=== PATIENT | male | born 1930 | race Caucasian/White ===

== ENCOUNTER 2016-04-02 06:02 | Emergency (ER) | payer MEDICARE, OTHER ==
--- NOTE | 2016-04-02 06:46 | ED ---
Upper Extremity Pain - History of Current Complaint Chief Complaint: EDExtremityUpper Stated Complaint: FALL/RIGHT ARM PAIN Hx Obtained From: Patient Mechanism Of Injury: Twisted - was walking down an incline when he started to fall, he quickly grabbed railing with R upper ext and has had pain in arm since. states he did not fall, he "caught himself". Had a hard time sleeping last night d/t pain. Onset/Duration: Started Hours Ago - last aakash Timing: Constant Severity Initially: Moderate Severity Currently: Moderate Pain Location: Elbow, Forearm Character: Sharp, Throbbing Aggravating Factor(s): Movement, Lifting Alleviating Factor(s): Other - position Associated Signs & Symptoms: Positive: Swelling, Bruising - Allergies/Home Medications Allergies/Adverse Reactions: Allergies Allergy/AdvReac Type Severity Reaction Status Date / Time No Known Allergies Allergy Verified 01/28/16 21:22 PMH/Surg Hx/FS Hx/Imm Hx Previously Healthy: Yes Endocrine/Hematology History: Reports: Hx Anticoagulant Therapy Denies: Hx Diabetes, Hx Systemic Lupus Erythematosus, Hx Thyroid Disease Cardiovascular History: Reports: Hx Atrial Fibrillation, Hx Hypercholesterolemia , Hx Hypertension Denies: Hx Congestive Heart Failure Respiratory History: Denies: Hx Asthma, Hx Chronic Obstructive Pulmonary Disease (COPD) GI History: Denies: Hx Ulcer History: Denies: Hx Dialysis, Hx Renal Disease Musculoskeletal History: Denies: Hx Rheumatoid Arthritis Neurological History: Denies: Hx CVA, Hx Migraine Psychiatric History: Denies: Hx Anxiety, Hx Depression - Cancer History Hx Chemotherapy: No - Surgical History Surgery Procedure, Year, and Place: HEART VALVE REPLACEMENT 1994 - Immunization History Date of Tetanus Vaccine: UTD Date of Influenza Vaccine: UTD Infectious Disease History: No Infectious Disease History: Denies: Hx Clostridium Difficile, Hx Hepatitis, Hx Human Immunodeficiency Virus (HIV), Hx of Known/Suspected MRSA, Traveled Outside the [place] in Last 30 Days - Family History Known Family History: Positive: Hypertension - Social History Occupation: Retired Lives: Alone Alcohol Use: None Substance Use Type: Reports: None Smoking Status (MU): Former Smoker Review of Systems Constitutional: Negative Eyes: Negative Cardiovascular: Negative Negative: Chest Pain Respiratory: Negative Negative: Shortness Of Breath Gastrointestinal: Negative Negative: Abdominal Pain Musculoskeletal: Other - RUE pain Positive: Bruising - on R elbow Neurological: Negative Negative: Headache, Weakness Psychological: Normal All Other Systems Reviewed And Are Negative: Yes Physical Exam Triage Information Reviewed: Yes Vital Signs On Initial Exam: Initial Vitals Temp Pulse Resp BP Pulse Ox 98.2 F 106 18 117/67 97 04/02/16 06:11 04/02/16 06:11 04/02/16 06:11 04/02/16 06:11 04/02/16 06:11 Vital Signs Reviewed: Yes Appearance: Positive: Well-Appearing, No Pain Distress, Well-Nourished Skin: Positive: Warm, Skin Color Reflects Adequate Perfusion, Dry - bruising on R wrist and elbow Neck: Positive: Supple Respiratory/Lung Sounds: Positive: Clear to Auscultation Cardiovascular: Positive: Normal Musculoskeletal: Positive: Other - decreased ROM R elbow and wrist, pat cannot define definite location or origin of pain, rubs entire R arm. no shoulder deformity or pain, R elbow swollen, and bruised, no palp pain, R wrist swollen and bruised, min palp pain Neurological: Positive: Normal, Sensory/Motor Intact, Alert, Oriented to Person Place, Time Diagnostics - Vital Signs Vital Signs Temp Pulse Resp BP Pulse Ox 04/02/16 06:11 98.2 F 106 18 117/67 97 - Laboratory Lab Statement: Any lab studies that have been ordered have been reviewed, and results considered in the medical decision making process. Re-Evaluation - Re-Evaluation First Eval Re-Evaluation Time: 08:35 Change: Unchanged Second Eval Re-Evaluation Time: 10:20 Change: Unchanged - remains comfortable in flexed elbow position, no new symps Course/Dx - Diagnoses Differential Diagnosis/HQI/PQRI: Positive: Contusion, Fracture (Closed), Strain , Sprain Provider Diagnoses: Fractured elbow Discharge - Discharge Plan Condition: Stable Disposition: HOME Patient Education Materials: Elbow Fracture in Adults (ED) Referrals: Kaley Cool MD [Primary Care Provider] - Miki Cline MD [Medical Doctor] - Additional Instructions: Wear sling and apply ice to elbow Use over the counter tylenol for pain follow-up with ortho office on Monday Return here if problems worsen
--- NOTE | 2016-04-02 09:27 | RAD ---
Indication: Right wrist injury 3 views of the wrist demonstrates no fracture. Chondrocalcinosis and arterial calcifications are noted. IMPRESSION: NO FRACTURE OF THE WRIST IS NOTED. CHONDROCALCINOSIS IS NOTED.
--- NOTE | 2016-04-02 09:35 | RAD ---
Indication: Right elbow pain and right elbow injury.. 4 views of the right elbow demonstrates likely fracture of the radial head which is slightly depressed. Anterior fat pad sign consistent with joint effusion is noted. IMPRESSION: Joint effusion with likely fracture of the radial head. Images are suboptimally positioned.
[2016-04-02 11:37] VITALS: BP 147/77
== END 2016-04-02 10:50 | disposition home or self-care (01) ==
LOC: ED 06:02
DX: S52.121A Displaced fracture of head of right radius, initial encounter for closed fracture (principal); M79.601 Pain in right arm; Z87.891 Personal history of nicotine dependence; W19.XXXA Unspecified fall, initial encounter; Y93.9 Activity, unspecified; Y92.9 Unspecified place or not applicable
CPT/HCPCS: 99281

== ENCOUNTER 2016-04-10 08:45 | Inpatient (IN) | payer MEDICARE, OTHER ==
[2016-04-10] MEDS ORDERED: Meclizine TAB* 12.5 MG PO ONE (09:16)
[2016-04-10] MEDS ORDERED: NS 0.9% 1000 ML* 1,000 ML IV ONE ×2 (09:16→10:56)
[2016-04-10 09:33] LABS: Hematocrit 46 % (42-52); Hemoglobin 15.3 g/dl (14.0-18.0); Mean Corpuscular HGB Conc 33 g/dl (31-36); Mean Corpuscular Hemoglobin 31 pg (27-31); Mean Corpuscular Volume 94 fL (80-94); Mean Platelet Volume 8 um3 (7.4-10.4); Red Cell Distribution Width 14 % (10.5-15); White Blood Count 7.7 10^3/ul (3.5-10.8)
[2016-04-10 09:45] LABS: Albumin 3.6 g/dL (3.2-5.2); BUN/Creatinine Ratio 16.7 (8-20); Calcium 9.8 mg/dL (8.6-10.3); EGFR African American 89.1 (>60); EGFR Non-African American 69.2 (>60); Globulin 3.5 g/dL (2-4); Magnesium 1.8 mg/dL (1.9-2.7); Potassium 3.8 mmol/L (3.5-5.0); Total Bilirubin 1.1 mg/dL (0.2-1.0); Total Protein 7.1 g/dL (6.4-8.9)
[2016-04-10 09:46] LABS: Troponin I 0.01 ng/mL (<0.04)
--- NOTE | 2016-04-10 09:53 | RAD ---
Indication: Dizziness, on anticoagulation. Assess for bleed. Comparison: March 23, 2014 CT. Technique: Noncontrast CT vertex of skull through foramen magnum. Report: Moderately severe prominence of the cerebral sulci and cerebellar fissures as well as the ventricles reflecting atrophy. Patent basal cisterns. Decreased density in the periventricular and subcortical white matter while non-specific is most likely due to chronic microangiopathy. Negative for duncan matter white matter obscuration, intra or extra-axial hemorrhage, or mass effect. Unremarkable visualized orbital contents. No suspicious lesion of the calvarium or skull base. Partially visualized RIGHT maxillary sinus is completely opacified and there is indolent thickening of the RIGHT maxillary sinus wall consistent with chronic sinusitis. Clear mastoid air spaces. Unremarkable scalp. IMPRESSION: 1. Involutional change and stigmata of chronic small vessel ischemic disease. 2. No acute intracranial process evident.
[2016-04-10 10:00] LABS: TSH (Thyroid Stimulating Horm) 0.81 mcIU/mL (0.34-5.60)
[2016-04-10] MEDS ORDERED: Magnesium Sulfate 2 GM IV* 2 GM/50 ML BAG IVPB ONE (10:57)
[2016-04-10 11:13] LABS: Urine Bilirubin Negative (Negative); Urine Glucose Negative (Negative); Urine Nitrite Negative (Negative)
--- NOTE | 2016-04-10 12:27 | ED ---
Tavo Galvan Matthew, scribed for Scott Owen MD on 04/10/16 at 0911 . Dizziness - HPI Summary HPI Summary: An 85 y/o male presents to the ED with sudden dizziness since 04:00 this morning. He states that he only has dizziness upon standing, which alleviates when he lays down. He's never had these symptoms before and felt well yesterday. Associated symptoms include unsteady gait when ambulating. He denies headache, weakness, speech difficulties, vomiting, diarrhea, sore throat, ear pain, rhinorrhea, head trauma, tinnitus, pedal edema, chest pain, SOB, fever, and chills. The patient is on a blood thinner for a heart valve replacement. The patient has not been ill recently. Last week, the patient fractured is right elbow while catching himself on a rail during a fall. - History Of Current Complaint Chief Complaint: EDDizziness Stated Complaint: DIZZY, Hx Obtained From: Patient Onset/Duration: Still Present Severity Initially: Moderate Severity Currently: Mild Character: Dizzy Aggravating Factor(s): Other - Standing Alleviating Factor(s): Lying Down Associated Signs And Symptoms: Positive: Unsteady Gait. Negative: Vomiting, Diarrhea, Tinnitus, Chest Pain, SOB, Fever, Chills, Slurred Speech - Allergies/Home Medications Allergies/Adverse Reactions: Allergies Allergy/AdvReac Type Severity Reaction Status Date / Time No Known Allergies Allergy Verified 04/10/16 08:50 PMH/Surg Hx/FS Hx/Imm Hx Endocrine/Hematology History: Reports: Hx Anticoagulant Therapy Denies: Hx Diabetes, Hx Systemic Lupus Erythematosus, Hx Thyroid Disease Cardiovascular History: Reports: Hx Atrial Fibrillation, Hx Hypercholesterolemia , Hx Hypertension Denies: Hx Congestive Heart Failure Respiratory History: Denies: Hx Asthma, Hx Chronic Obstructive Pulmonary Disease (COPD) GI History: Denies: Hx Ulcer History: Denies: Hx Dialysis, Hx Renal Disease Musculoskeletal History: Denies: Hx Rheumatoid Arthritis Neurological History: Denies: Hx CVA, Hx Migraine Psychiatric History: Denies: Hx Anxiety, Hx Depression - Cancer History Hx Chemotherapy: No - Surgical History Surgery Procedure, Year, and Place: HEART VALVE REPLACEMENT 1994 - Immunization History Date of Tetanus Vaccine: UTD Date of Influenza Vaccine: UTD Infectious Disease History: No Infectious Disease History: Denies: Hx Clostridium Difficile, Hx Hepatitis, Hx Human Immunodeficiency Virus (HIV), Hx of Known/Suspected MRSA, Traveled Outside the [place] in Last 30 Days - Family History Known Family History: Positive: Hypertension - Social History Alcohol Use: None Substance Use Type: Reports: None Smoking Status (MU): Former Smoker Review of Systems Constitutional: Negative Negative: Fever, Chills Eyes: Negative ENT: Negative Negative: Sore Throat, Ear Ache Cardiovascular: Negative Negative: Chest Pain Respiratory: Negative Negative: Shortness Of Breath Gastrointestinal: Negative Negative: Abdominal Pain, Vomiting, Diarrhea Genitourinary: Negative Musculoskeletal: Negative Negative: Edema - pedal Skin: Negative Neurological: Other - Dizziness Negative: Headache, Weakness, Slurred Speech Psychological: Normal All Other Systems Reviewed And Are Negative: Yes Physical Exam - Summary Physical Exam Summary: The patient is well-nourished in no acute distress and in no acute pain. The skin is warm and dry and skin color reflects adequate perfusion. HEENT: The head is normocephalic and atraumatic. Nystagmus noted. The conjunctivae are clear and without drainage. Nares are patent and without drainage. Mouth reveals moist mucous membranes and the throat is without erythema and exudate. The external ears are intact. The ear canals are patent and without drainage. The tympanic membranes are intact. Neck is supple with full range of motion and non-tender. There are no carotid bruits. There is no neck vein distension. Respiratory: Chest is non-tender. Lungs are clear to auscultation and breath sounds are symmetrical and equal. Cardiovascular: Heart is regular rate and rhythm. There is no murmur or rub auscultated. There is no peripheral edema and pulses are symmetrical and equal. Abdomen: The abdomen is soft and non-tender. There are normal bowel sounds heard in all four quadrants and there is no organomegaly palpated. Musculoskeletal: There is no back pain noted. Extremities are non-tender with full range of motion. There is good capillary refill. There is no peripheral edema or calf tenderness elicited. Neurological: Patient is alert and oriented to person, place and time. The patient has symmetrical motor strength in all four extremities. Cranial nerves II-XII are grossly intact. No facial drooping noted. Deep tendon reflexes are symmetrical and equal in all four extremities. Psychiatric: The patient has an appropriate affect and does not exhibit any anxiety or depression. Triage Information Reviewed: Yes Vital Signs On Initial Exam: Initial Vitals Temp Pulse Resp BP Pulse Ox 98.1 F 80 17 138/60 98 04/10/16 08:46 04/10/16 08:46 04/10/16 08:46 04/10/16 08:46 04/10/16 08:46 Vital Signs Reviewed: Yes Diagnostics - Vital Signs Vital Signs Temp Pulse Resp BP Pulse Ox 04/10/16 08:46 98.1 F 80 17 138/60 98 - Laboratory Lab Results: Lab Results 04/10/16 04/10/16 04/10/16 Range/Units 09:00 09:00 09:00 WBC 7.7 (3.5-10.8) 10^3/ul RBC 4.90 (4.0-5.4) 10^6/ul Hgb 15.3 (14.0-18.0) g/dl Hct 46 (42-52) % MCV 94 (80-94) fL MCH 31 (27-31) pg MCHC 33 (31-36) g/dl RDW 14 (10.5-15) % Plt Count 218 (150-450) 10^3/ul MPV 8 (7.4-10.4) um3 Neut % (Auto) 70.7 (38-83) % Lymph % (Auto) 14.7 L (25-47) % Blair % (Auto) 10.8 H (1-9) % Eos % (Auto) 3.3 (0-6) % Baso % (Auto) 0.5 (0-2) % Absolute Neuts (auto) 5.5 (1.5-7.7) 10^3/ul Absolute Lymphs (auto) 1.1 (1.0-4.8) 10^3/ul Absolute Monos (auto) 0.8 (0-0.8) 10^3/ul Absolute Eos (auto) 0.3 (0-0.6) 10^3/ul Absolute Basos (auto) 0 (0-0.2) 10^3/ul Absolute Nucleated RBC 0.01 10^3/ul Nucleated RBC % 0.1 INR (Anticoag Therapy) 2.47 H (0.89-1.11) APTT 43.2 H (26.0-36.3) seconds Sodium 135 (133-145) mmol/L Potassium 3.8 (3.5-5.0) mmol/L Chloride 103 (101-111) mmol/L Carbon Dioxide 25 (22-32) mmol/L Anion Gap 7 (2-11) mmol/L BUN 17 (6-24) mg/dL Creatinine 1.02 (0.67-1.17) mg/dL Est GFR ( Amer) 89.1 (>60) Est GFR (Non-Af Amer) 69.2 (>60) BUN/Creatinine Ratio 16.7 (8-20) Glucose 84 (70-100) mg/dL Lactic Acid (0.5-2.0) mmol/L Calcium 9.8 (8.6-10.3) mg/dL Magnesium 1.8 L (1.9-2.7) mg/dL Total Bilirubin 1.10 H (0.2-1.0) mg/dL AST 24 (13-39) U/L ALT 19 (7-52) U/L Alkaline Phosphatase 91 (34-104) U/L Troponin I 0.01 (<0.04) ng/mL B-Natriuretic Peptide ( - 100) pg/mL Total Protein 7.1 (6.4-8.9) g/dL Albumin 3.6 (3.2-5.2) g/dL Globulin 3.5 (2-4) g/dL Albumin/Globulin Ratio 1.0 (1-3) TSH 0.81 (0.34-5.60) mcIU/mL Urine Color Urine Appearance Urine pH (5-9) Ur Specific [place] (1.010-1.030) Urine Protein (Negative) Urine Ketones (Negative) Urine Blood (Negative) Urine Nitrate (Negative) Urine Bilirubin (Negative) Urine Urobilinogen (Negative) Ur Leukocyte Esterase (Negative) Urine Glucose (Negative) 04/10/16 04/10/16 04/10/16 Range/Units 09:00 09:00 11:00 WBC (3.5-10.8) 10^3/ul RBC (4.0-5.4) 10^6/ul Hgb (14.0-18.0) g/dl Hct (42-52) % MCV (80-94) fL MCH (27-31) pg MCHC (31-36) g/dl RDW (10.5-15) % Plt Count (150-450) 10^3/ul MPV (7.4-10.4) um3 Neut % (Auto) (38-83) % Lymph % (Auto) (25-47) % Blair % (Auto) (1-9) % Eos % (Auto) (0-6) % Baso % (Auto) (0-2) % Absolute Neuts (auto) (1.5-7.7) 10^3/ul Absolute Lymphs (auto) (1.0-4.8) 10^3/ul Absolute Monos (auto) (0-0.8) 10^3/ul Absolute Eos (auto) (0-0.6) 10^3/ul Absolute Basos (auto) (0-0.2) 10^3/ul Absolute Nucleated RBC 10^3/ul Nucleated RBC % INR (Anticoag Therapy) (0.89-1.11) APTT (26.0-36.3) seconds Sodium (133-145) mmol/L Potassium (3.5-5.0) mmol/L Chloride (101-111) mmol/L Carbon Dioxide (22-32) mmol/L Anion Gap (2-11) mmol/L BUN (6-24) mg/dL Creatinine (0.67-1.17) mg/dL Est GFR ( Amer) (>60) Est GFR (Non-Af Amer) (>60) BUN/Creatinine Ratio (8-20) Glucose (70-100) mg/dL Lactic Acid 1.0 (0.5-2.0) mmol/L Calcium (8.6-10.3) mg/dL Magnesium (1.9-2.7) mg/dL Total Bilirubin (0.2-1.0) mg/dL AST (13-39) U/L ALT (7-52) U/L Alkaline Phosphatase (34-104) U/L Troponin I (<0.04) ng/mL B-Natriuretic Peptide 72 ( - 100) pg/mL Total Protein (6.4-8.9) g/dL Albumin (3.2-5.2) g/dL Globulin (2-4) g/dL Albumin/Globulin Ratio (1-3) TSH (0.34-5.60) mcIU/mL Urine Color Yellow Urine Appearance Clear Urine pH 6.0 (5-9) Ur Specific [place] 1.006 L (1.010-1.030) Urine Protein Negative (Negative) Urine Ketones Trace H (Negative) Urine Blood Negative (Negative) Urine Nitrate Negative (Negative) Urine Bilirubin Negative (Negative) Urine Urobilinogen Negative (Negative) Ur Leukocyte Esterase Negative (Negative) Urine Glucose Negative (Negative) Result Diagrams: 04/10/16 09:00 04/10/16 09:00 Lab Statement: Any lab studies that have been ordered have been reviewed, and results considered in the medical decision making process. - CT Brain CT CT Interpretation: No Acute Changes - IMPRESSION: 1. Involutional change and stigmata of chronic small vessel ischemic disease. 2. No acute intracranial process evident. CT Interpretation Completed By: Radiologist - EKG 08:55 Cardiac Rate: NL - 72 bpm EKG Rhythm: Sinus Rhythm ST Segment: Non-Specific EKG Interpretation: Poor R Wave Progression; No STEMI Re-Evaluation - Re-Evaluation First Eval Re-Evaluation Time: 10:34 Change: Improved Comment: Reviewed labs and imagaing results with the patient and he agrees with the treatment plan. The patient is feeling better and will try to ambulate. Second Eval Re-Evaluation Time: 10:56 Change: Unchanged Comment: The patient states that he is a little less dizziness upon standing; however he is orthostatic and has low magnesium. He will be given more IV fluids and magnesium. Dizzy Course/Dx - Course Assessment/Plan: An 85 y/o male presents to the ED with sudden dizziness since 04:00 this morning. He denies headache, weakness, speech difficulties, vomiting , diarrhea, sore throat, ear pain, rhinorrhea, head trauma, tinnitus, pedal edema, chest pain, SOB, fever, and chills. Labs were reviewed. CT Brain shows involutional change and stigmata of chronic small vessel ischemic disease and no acute intracranial process evident. EKG shows NSR at 72 bpm with non- specific ST changes. The patient continued to become dizzy upon standing and orthostatic. Discussed the case with Dr. High will admit the patient into his services. - Diagnoses Differential Diagnosis/HQI/PQRI: Benign Paroxysmal Positional Vertigo, Coronary Artery Disease, CVA, Hypovolemia, Labyrinthitis, Medication Reaction, Metabolic Abnormality, Transient Ischemic Attack Provider Diagnoses: Vertigo, Dehydration Provider Diagnoses: (Ruled Out): Orthostatic hypotension - Provider Notifications Discussed Care Of Patient with: Dr. High (Hospitalist) at 11:37 -- Notified of patient's history and will admit the patient into his services. Discharge - Discharge Plan Condition: Stable Disposition: ADMITTED TO [facility] Referrals: Kaley Cool MD [Primary Care Provider] - The documentation as recorded by the Tavo ballard Matthew accurately reflects the service I personally performed and the decisions made by , Scott Owen MD.
[2016-04-10] MEDS ORDERED: Acetaminophen TAB* 325 MG PO PRN (15:12)
--- NOTE | 2016-04-10 20:06 | HP ---
HISTORY AND PHYSICAL:* ADDENDUM: DATE OF ADMISSION: 04/10/16 Mr. Derrell Cristobal is an 85-year-old male with a history of Coumadin atrial fibrillation, who fractured his radial head of the right arm after a fall on . Since then, he has been "wobbly." He does not have 24x7 care at home and he lives independently. Today he presents with worsening weakness. He is going to be observed. Physical therapy and occupational therapy is going to evaluate the patient. He may require short-term rehab. For further details of the patient's presentation and plan, please see history and physical dictated by Jenny Arevalo on 04/10/16, with which I agree. [id number]/[facility] #: [id number] MTDD
--- NOTE | 2016-04-10 22:59 | HP ---
ATTENDING PHYSICIAN ADDENDUM NOW INCLUDED ON THIS REPORT HISTORY AND PHYSICAL: DATE OF ADMISSION: 04/10/16 ATTENDING PHYSICIAN: Dr. Jacobsen *(report dictated by Jennie Tavarez NP) PRIMARY CARE PROVIDER: Dr. Cool. CHIEF COMPLAINT: Weakness, falls. HISTORY OF PRESENT ILLNESS: Mr. Cristobal is an 85-year-old male with a past medical history of atrial fibrillation on anticoagulation, history of aortic valve replacement in 1994, hyperlipidemia, hypertension, and recent right elbow fracture, presenting to the emergency department today with complaint of weakness and "wobbly legs." The patient was at home today with his caregiver and the caregiver reported that he would have "fallen down the stairs" if he had not been there and brought him in due to an unsteady gait. The patient reports overall generalized weakness and feels fine other than has wobbly legs. He denies any falls; however, he did fall 10 days ago in which he was walking down an incline and started to fall and grabbed a railing and fractured his elbow. He does report since that time he has been sitting around more than normal due to his right arm being swollen and experiencing some elbow pain. Today in the emergency department, his labs are unremarkable. I did ambulate the patient in the emergency department and he appears to have some difficulty with a steady gait and is deemed a high fall risk. The patient denies any shortness of breath or chest pain. No recent fevers, chills, or upper respiratory illnesses. PAST MEDICAL HISTORY: 1. Atrial fibrillation, on Coumadin. 2. Valve replacement, the patient does not recall which valve. I had seen old records, it reports it was done in 1994 at [facility], which he is on chronic anticoagulation for. 3. Hyperlipidemia. 4. Hypertension. 5. History of esophageal stenosis, requiring dilatation. HOME MEDICATIONS: 1. Coumadin 5 mg p.o. every other day. 2. Coumadin 2.5 mg every other day. 3. Flomax 0.4 mg p.o. daily. 4. Lisinopril 10 mg p.o. daily. 5. Atorvastatin 10 mg p.o. daily. 6. Aspirin EC low dose 81 mg p.o. daily. 7. Multivitamin 1 tab p.o. daily. ALLERGIES: No known allergies. FAMILY HISTORY: His father in the 1939s of unknown causes. His mother and 2 sisters have a history of cancer, possibly breast. SOCIAL HISTORY: The patient denies tobacco abuse, rare alcohol use. 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 He is . He lists his niece as the healthcare proxy, her number is . She lives in [place], [place]. REVIEW OF SYSTEMS: A 14-point review of systems was performed. All the pertinent positives and negatives are mentioned in the history of present illness. All the remaining systems are negative. PHYSICAL EXAMINATION GENERAL: Alert, and oriented x3, 85-year-old male, lying in the emergency department stretcher, in no acute distress. Fair to good historian. VITAL SIGNS: Temperature 98.1, heart rate 74, respirations 14, O2 sat 98% on room air, and blood pressure 139/74. HEENT: Head is normocephalic and atraumatic. Pupils reactive to light. Oropharynx is clear. Good dentition. NECK: Supple. No cervical or supraclavicular lymphadenopathy. LUNGS: Clear to auscultation bilaterally, good aeration throughout. HEART: Cardiac; S1 and S2. Regular rate and rhythm. No murmurs, rubs, or gallops appreciated. No lower extremity edema noted. ABDOMEN: Soft, nontender, and nondistended. Normal bowel sounds x4. EXTREMITIES: Right elbow and distal portion of arm appears to be mildly edematous. Strength is 3/5 on the right and 5/5 on the left. The patient reports tenderness to palpation over the right elbow. Full range of motion in all extremities. Guarding of right elbow. NEUROLOGIC: Cranial nerves II through XII are grossly intact. The patient was ambulated in emergency department and has an unsteady gait and needs one assist. PSYCH: Appropriate to situation, slightly anxious. LABORATORY DATA AND DIAGNOSTIC STUDIES: WBC 7.7, RBC 4.90, HGB 15.3, HCT 46, MCV 94, MCH 31, MCHC 33, RDW 14, platelet count 218. INR 2.47. Sodium 135, potassium 3.8, chloride 103, carbon dioxide 25, anion gap 7, BUN 17, creatinine 1.02, glucose 84, lactic acid 1.0, calcium 9.8, magnesium 1.8. Total bilirubin 1.10, AST 24, ALT 19, alkaline phosphatase 91, troponin 0.01, BNP 72, total protein 7.1, and TSH 0.81. Urinalysis: Specific gravity 1.006, trace ketones high. Otherwise negative. Brain CT. Impression: 1. Involutional changes, stigmata of chronic small vessel ischemic disease. 2. No acute intracranial process evident. EKG: Sinus rhythm with the rate of 72. No acute ischemic changes noted. ASSESSMENT AND PLAN: Mr. Cristobal is an 85-year-old male with a past medical history of atrial fibrillation, valve replacement on chronic Coumadin therapy, hypertension, hyperlipidemia, who presents to the emergency department today with generalized weakness and recent history of fall with a fractured right elbow. 1. Fall/weakness. It appears the patient is unstable to go home and be safe. It is unclear if the patient is overall declining at home in which he had a fall and fractured his elbow approximately 10 days ago or he is just unconditioned from lying around since he has fractured his arm. I think both could be a possibility and believe it is unsafe to discharge the patient home. There is no family close by to take the patient home. Plan: To admit the patient to Medical. PT/OT evaluation. It is possible there are friends that could stay with him for a while. This may be a safe option for him. We will await PT evaluation and reevaluate tomorrow. There appears to be no acute infectious process. 2. Paroxysmal atrial fibrillation. The patient's EKG shows sinus rhythm. It is unclear if the patient is on Coumadin for the valve replacement. However, the patient's INR is therapeutic. He took his Coumadin this morning. Will continue Coumadin therapy in the morning. 3. Hypertension. Continue lisinopril. 4. Hyperlipidemia. Continue atorvastatin. 5. DVT prophylaxis. Therapeutic INR on Coumadin. 6. Code status DNR. MOLST has been filled out and is on the chart. TIME SPENT: Approximately 60 minutes was spent on this admission. JENNIE TAVAREZ NP ADDENDUM: DATE OF ADMISSION: 04/10/16 Mr. Derrell Cristobal is an 85-year-old male with a history of Coumadin atrial fibrillation, who fractured his radial head of the right arm after a fall on . Since then, he has been "wobbly." He does not have 24x7 care at home and he lives independently. Today he presents with worsening weakness. He is going to be observed. Physical therapy and occupational therapy is going to evaluate the patient. He may require short-term rehab. For further details of the patient's presentation and plan, please see history and physical dictated by Jennie Tavarez on 04/10/16, with which I agree. EMILIANA JACOBSEN MD CC: Dr. Cool * [id number]/CPS #: [id number]/CPS #: [id number] MTDD
[2016-04-11 06:10] LABS: Hematocrit 39 % (42-52); Hemoglobin 13.2 g/dl (14.0-18.0); Mean Corpuscular HGB Conc 34 g/dl (31-36); Mean Corpuscular Hemoglobin 31 pg (27-31); Mean Corpuscular Volume 93 fL (80-94); Mean Platelet Volume 8 um3 (7.4-10.4); Red Cell Distribution Width 14 % (10.5-15); White Blood Count 8.6 10^3/ul (3.5-10.8)
[2016-04-11 06:23] LABS: BUN/Creatinine Ratio 16.7 (8-20); Calcium 8.7 mg/dL (8.6-10.3); EGFR African American 102.9 (>60); Magnesium 1.9 mg/dL (1.9-2.7); Potassium 3.8 mmol/L (3.5-5.0)
[2016-04-11 07:51] VITALS: BP 131/65
[2016-04-11] MEDS ORDERED: Lisinopril TAB* 10 MG PO SCH (09:00)
[2016-04-11] MEDS ORDERED: Aspirin EC Low Dose* 81 MG TAB.EC PO SCH (09:00)
[2016-04-11] MEDS ORDERED: Atorvastatin* 10 MG TAB PO SCH (09:00)
[2016-04-11] MEDS ORDERED: Tamsulosin CAP* 0.4 MG PO SCH (09:00)
--- NOTE | 2016-04-11 11:37 | PN ---
Subjective Date of Service: 04/11/16 Interval History: patient reports he is much better today, that he is close to his baseline and wants to go home. he ambulated with PT today requiring a gait belt and recommendation was to continue daily inpatient pt. patient has set up 24 hour home care starting today. his friend/caregiver Chet who frequently helps the patient is at the bedside and confirms this as well as I spoke to the HCP Akua who agrees. The patient was able to ambulate in front of me and does have a wobbly gait but is stable on transfer to bed to chair and independent. It was discussed that he needs 24 hour care and needs a stand-by assist with transfers. , Pt did note blood in urine yesterday x1 and today x1 which has since resolved. He denies ever having blood in urine in the past. Objective Active Medications: Acetaminophen (Tylenol Tab*) 650 mg PO Q6H PRN PRN Reason: FEVER/PAIN Aspirin (Aspirin Ec Low Dose*) 81 mg PO DAILY [facility] Last Admin: 04/11/16 08:35 Dose: 81 mg Atorvastatin Calcium (Lipitor*) 10 mg PO DAILY [facility] Last Admin: 04/11/16 08:35 Dose: 10 mg Lisinopril (Prinivil Tab*) 10 mg PO DAILY [facility] Last Admin: 04/11/16 08:35 Dose: 10 mg Tamsulosin HCl (Flomax Cap*) 0.4 mg PO DAILY [facility] Last Admin: 04/11/16 08:35 Dose: 0.4 mg Warfarin Sodium (Coumadin Tab(*)) 2.5 mg PO EVERY OTHER DAY@1700 [facility] PRN Reason: Protocol Warfarin Sodium (Coumadin Tab(*)) 5 mg PO EVERY OTHER DAY@1700 [facility] PRN Reason: Protocol Vital Signs 04/10/16 04/10/16 04/10/16 13:27 13:30 15:40 Temperature 97.3 F Pulse Rate 70 Respiratory 37 18 Rate Blood Pressure 140/74 144/70 (mmHg) O2 Sat by Pulse 97 Oximetry 04/10/16 04/10/16 04/10/16 15:52 16:21 20:00 Temperature 97.3 F Pulse Rate 74 Respiratory 18 18 16 Rate Blood Pressure 144/70 (mmHg) O2 Sat by Pulse 97 Oximetry 04/10/16 04/10/16 04/11/16 22:02 23:32 00:33 Temperature 97.5 F 97.4 F Pulse Rate 81 74 74 Respiratory 16 16 Rate Blood Pressure 134/69 124/53 (mmHg) O2 Sat by Pulse 95 94 93 Oximetry 04/11/16 04/11/16 04:45 07:50 Temperature 97.9 F 97.4 F Pulse Rate 76 67 Respiratory 16 16 Rate Blood Pressure 127/69 131/65 (mmHg) O2 Sat by Pulse 97 94 Oximetry Oxygen Devices in Use Now: None Appearance: eldelry male sitting up in a chair in NAD. A+O x3 Eyes: No Scleral Icterus, PERRLA Ears/Nose/Mouth/Throat: NL Teeth, Lips, Gums, Mucous Membranes Moist Neck: NL Appearance and Movements; NL JVP Respiratory: Symmetrical Chest Expansion and Respiratory Effort, Clear to Auscultation Cardiovascular: NL Sounds; No Murmurs; No JVD, RRR, No Edema Abdominal: NL Sounds; No Tenderness; No Distention Extremities: No Edema, No Clubbing, Cyanosis, - - bilateral 2+ radial pulses; upper ext warm Skin: No Rash or Ulcers, No Nodules or Sclerosis Neurological: Alert and Oriented x 3, NL Sensation, NL Muscle Strength and Tone Lines/Tubes/Other Access: Clean, Dry and Intact Peripheral IV Nutrition: Taking PO's Result Diagrams: 04/11/16 12:25 04/11/16 05:43 Additional Lab and Data: Lab Results 04/10/16 04/10/16 04/10/16 Range/Units 09:00 09:00 09:00 WBC 7.7 (3.5-10.8) 10^3/ul RBC 4.90 (4.0-5.4) 10^6/ul Hgb 15.3 (14.0-18.0) g/dl Hct 46 (42-52) % MCV 94 (80-94) fL MCH 31 (27-31) pg MCHC 33 (31-36) g/dl RDW 14 (10.5-15) % Plt Count 218 (150-450) 10^3/ul MPV 8 (7.4-10.4) um3 Neut % (Auto) 70.7 (38-83) % Lymph % (Auto) 14.7 L (25-47) % [place] % (Auto) 10.8 H (1-9) % Eos % (Auto) 3.3 (0-6) % Baso % (Auto) 0.5 (0-2) % Absolute Neuts (auto) 5.5 (1.5-7.7) 10^3/ul Absolute Lymphs (auto) 1.1 (1.0-4.8) 10^3/ul Absolute Monos (auto) 0.8 (0-0.8) 10^3/ul Absolute Eos (auto) 0.3 (0-0.6) 10^3/ul Absolute Basos (auto) 0 (0-0.2) 10^3/ul Absolute Nucleated RBC 0.01 10^3/ul Nucleated RBC % 0.1 INR (Anticoag Therapy) 2.47 H (0.89-1.11) APTT 43.2 H (26.0-36.3) seconds Sodium 135 (133-145) mmol/L Potassium 3.8 (3.5-5.0) mmol/L Chloride 103 (101-111) mmol/L Carbon Dioxide 25 (22-32) mmol/L Anion Gap 7 (2-11) mmol/L BUN 17 (6-24) mg/dL Creatinine 1.02 (0.67-1.17) mg/dL Est GFR ( Amer) 89.1 (>60) Est GFR (Non-Af Amer) 69.2 (>60) BUN/Creatinine Ratio 16.7 (8-20) Glucose 84 (70-100) mg/dL Lactic Acid (0.5-2.0) mmol/L Calcium 9.8 (8.6-10.3) mg/dL Magnesium 1.8 L (1.9-2.7) mg/dL Total Bilirubin 1.10 H (0.2-1.0) mg/dL AST 24 (13-39) U/L ALT 19 (7-52) U/L Alkaline Phosphatase 91 (34-104) U/L Troponin I 0.01 (<0.04) ng/mL B-Natriuretic Peptide ( - 100) pg/mL Total Protein 7.1 (6.4-8.9) g/dL Albumin 3.6 (3.2-5.2) g/dL Globulin 3.5 (2-4) g/dL Albumin/Globulin Ratio 1.0 (1-3) TSH 0.81 (0.34-5.60) mcIU/mL Urine Color Urine Appearance Urine pH (5-9) Ur Specific Buhl (1.010-1.030) Urine Protein (Negative) Urine Ketones (Negative) Urine Blood (Negative) Urine Nitrate (Negative) Urine Bilirubin (Negative) Urine Urobilinogen (Negative) Ur Leukocyte Esterase (Negative) Urine Glucose (Negative) 04/10/16 04/10/16 04/10/16 Range/Units 09:00 09:00 11:00 WBC (3.5-10.8) 10^3/ul RBC (4.0-5.4) 10^6/ul Hgb (14.0-18.0) g/dl Hct (42-52) % MCV (80-94) fL MCH (27-31) pg MCHC (31-36) g/dl RDW (10.5-15) % Plt Count (150-450) 10^3/ul MPV (7.4-10.4) um3 Neut % (Auto) (38-83) % Lymph % (Auto) (25-47) % [place] % (Auto) (1-9) % Eos % (Auto) (0-6) % Baso % (Auto) (0-2) % Absolute Neuts (auto) (1.5-7.7) 10^3/ul Absolute Lymphs (auto) (1.0-4.8) 10^3/ul Absolute Monos (auto) (0-0.8) 10^3/ul Absolute Eos (auto) (0-0.6) 10^3/ul Absolute Basos (auto) (0-0.2) 10^3/ul Absolute Nucleated RBC 10^3/ul Nucleated RBC % INR (Anticoag Therapy) (0.89-1.11) APTT (26.0-36.3) seconds Sodium (133-145) mmol/L Potassium (3.5-5.0) mmol/L Chloride (101-111) mmol/L Carbon Dioxide (22-32) mmol/L Anion Gap (2-11) mmol/L BUN (6-24) mg/dL Creatinine (0.67-1.17) mg/dL Est GFR ( Amer) (>60) Est GFR (Non-Af Amer) (>60) BUN/Creatinine Ratio (8-20) Glucose (70-100) mg/dL Lactic Acid 1.0 (0.5-2.0) mmol/L Calcium (8.6-10.3) mg/dL Magnesium (1.9-2.7) mg/dL Total Bilirubin (0.2-1.0) mg/dL AST (13-39) U/L ALT (7-52) U/L Alkaline Phosphatase (34-104) U/L Troponin I (<0.04) ng/mL B-Natriuretic Peptide 72 ( - 100) pg/mL Total Protein (6.4-8.9) g/dL Albumin (3.2-5.2) g/dL Globulin (2-4) g/dL Albumin/Globulin Ratio (1-3) TSH (0.34-5.60) mcIU/mL Urine Color Yellow Urine Appearance Clear Urine pH 6.0 (5-9) Ur Specific B[place] 1.006 L (1.010-1.030) Urine Protein Negative (Negative) Urine Ketones Trace H (Negative) Urine Blood Negative (Negative) Urine Nitrate Negative (Negative) Urine Bilirubin Negative (Negative) Urine Urobilinogen Negative (Negative) Ur Leukocyte Esterase Negative (Negative) Urine Glucose Negative (Negative) Assess/Plan/Problems-Billing Assessment: 85 yo male with a PMH of afib on Coumadin, valve replacement, HTN and recent right elbow fx who presented 2/5 with c/o of weakness/falls. - Patient Problems (1) weakness/falls Comment: - suspect secondary to deconditioning secondary to decreased activity due to fx right elbow - improved since admission, will require 24 hour care, which has been set up, VNS with home PT. (2) Hematuria Comment: - x2 now resolved. will f/u with Dr. Cool. If it continues recommend urology consult. - HH stable (3) Elbow fracture, right Comment: Fractured 2 - he followed up with ortho as an outpt and reports he is to have a sling only. He has a f/u with Ortho this week. (4) Mechanical heart valve present Comment: - INR therapuetic (5) DVT prophylaxis Comment: coumadin (6) DNR (do not resuscitate) Status and Disposition: Plan for DC today with home 24 hour care, VNS with PT services.
[2016-04-11 12:36] LABS: Hematocrit 40 % (42-52); Hemoglobin 13.5 g/dl (14.0-18.0)
[2016-04-11] MEDS ORDERED: Warfarin TAB(*) 2.5 MG PO SCH (17:00)
--- NOTE | 2016-04-12 03:05 | DS ---
DISCHARGE SUMMARY: DATE OF ADMISSION: 04/10/16 DATE OF DISCHARGE: 04/11/16 PROVIDER: Jennie Tavarez NP ATTENDING PHYSICIAN: Dr. Gong *(report dictated by Jennie Tavarez NP). PRIMARY CARE PROVIDER: Dr. Cool. PRIMARY DIAGNOSES: 1. Weakness, falls. 2. Hematuria. 3. Status post fracture, right elbow. SECONDARY DIAGNOSES: 1. Mechanical valve, on Coumadin. 2. Hyperlipidemia. 3. Hypertension. 4. History of esophageal stenosis requiring dilatation. HOME MEDICATIONS: 1. Coumadin 5 mg p.o. every other day. 2. Coumadin 2.5 mg p.o. every other day. 3. Flomax 0.4 mg p.o. daily. 4. Lisinopril 10 mg p.o. daily. 5. Atorvastatin 10 mg p.o. daily. 6. Aspirin EC low dose 81 mg p.o. daily. 7. Multivitamin 1 tab p.o. daily. HISTORY OF PRESENT ILLNESS AND HOSPITAL COURSE: Please see history and physical by this author for full admission details, but in summary, this is an 85-year-old male who presented to the emergency department on 04/10/16 with one of his caregivers with report of "wobbly legs" and some noted weakness stating he felt like he was going to fall at home. The patient did have a fall on 04/06; in which, he fractured his right elbow. He reports at that time, he was walking down an incline, lost his footing, grabbed a railing, and ended up fracturing his elbow. The patient since has been sitting around his house, not as active as normal and reports today when he got up, he felt very wobbly in his lower extremities like he was going to fall with some generalized weakness. He denies any fevers, chills, upper respiratory illness. No nausea, vomiting , diarrhea. No shortness of breath or chest pain. He reports other than his wobbly legs, he feels like his normal state of health. Mr. Cristobal continues to live at home independently with some caregivers who check in on him. 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 He reports he has lot of friends "close by." The patient was admitted to the hospitalist service. His labs were fairly unremarkable. He was seen by Physical Therapy, who reported the patient to get out of his bed independently, transfers, sit to stand independently with some standby supervision. It is noted that the patient moves very fast on transferring and has decreased safety awareness. The patient was able to ambulate 40 feet and is noted to be off balance and has increased sway during ambulation and is noted to wobble with his gait. Recommendation was for acute care, physical therapy to increase mobility and safety. I discussed this with the patient as well as the caregiver as well as his healthcare proxy. The patient has set up 24-hour home care with live-in friends, who have agreed to provide him with 24-hour care. As well, he has been set up with visiting nurse service and Physical Therapy. I evaluated the patient and ambulated him myself , he was able to get himself out of bed to the chair and ambulate in the room. He does appear wobbly, but he is stable and is safe to be discharged home with 24-hour care. Again, this was discussed with the healthcare proxy who was in [place] as well as his friend/caregiver, Chet, who will be taking the patient home. They have all confirmed the patient does have 24-hour care starting today. The patient was instructed that he needs to have somebody at his side at all times while going through physical therapy at home. Again, the patient was offered that he could go to subacute rehab, but the patient has strongly declined. The patient understands his fall risks being on Coumadin. The patient did have noted hematuria yesterday x1 and today x1, which has since resolved. The patient is on Coumadin. I saw his last urine, which was clear, light yellow. His hemoglobin on admission was 15.3, down to 13.2 today. I rechecked it this afternoon and is stable at 13.5. He did receive some IV fluids on admission, most likely his drop is secondary to dilutional. His urinalysis on admission had no blood noted. Per the patient, he has never had blood in his urine before in the past. He has no pain with urinating. I did speak to his primary care provider over the phone, Dr. Cool, and updated her on the situation. She will follow up with the patient this week. If he continues to have hematuria, she will refer him to Urology. DISCHARGE PLAN: 1. Stable for discharge home. 2. Follow up with Dr. Cool. Her office will call him for a followup this week. 3. Follow up with orthopedic surgeon as previously scheduled. 4. It was discussed with the patient if he has significant hematuria, he needs to return to the emergency department. 5. VNS with physical therapy services has been set up. 6. The patient is to have personal home and 24-hour care starting today. TIME SPENT: Approximately 60 minutes was spent on this discharge. JENNIE TAVAREZ, HANNA [id number]/CPS #: [id number] JACKIE
[2016-04-12] MEDS ORDERED: Warfarin TAB(*) 5 MG PO SCH (17:00)
== END 2016-04-11 15:50 | disposition home or self-care (01) | DRG 948 ==
LOC: ED 08:45 → MED 13:03 → OBSVTOIN 04-11 10:00
PROVIDERS: ADMIT Internal Medicine; ATTEND Internal Medicine
DX: R53.1 Weakness (principal); R31.9 Hematuria, unspecified; I48.91 Unspecified atrial fibrillation; S42.401D Unspecified fracture of lower end of right humerus, subsequent encounter for fracture with routine healing; E78.5 Hyperlipidemia, unspecified; I10 Essential (primary) hypertension; Z79.01 Long term (current) use of anticoagulants; W18.30XD Fall on same level, unspecified, subsequent encounter; Z95.2 Presence of prosthetic heart valve; Z79.82 Long term (current) use of aspirin; Z91.81 History of falling; Z79.899 Other long term (current) drug therapy
CPT/HCPCS: 36415; 70450; 80048; 80053; 81003; 83605; 83735; 83880; 84443; 84484; 85014; 85018; 85025; 85610; 85730; 93005; A9270-GY; G0378; G8978-GP-CJ; G8979-GP-CI; G8980-GP-CJ; J3475

== ENCOUNTER 2018-03-12 10:41 | Observation (INO) | payer MEDICARE, OTHER ==
--- NOTE | 2018-03-12 10:57 | ED ---
Altered Mental Status - HPI Summary HPI Summary: An 87 y/o male brought in by [facility] ambulance presents to [facility] with a chief complaint of, per EMS, "acting nonsensical and combative". His plant maintenance manager found him in this state. Per EMS, his coffee was cold and he has no last known well time. En route he was given 5 mg Versed. 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 He denies any Fever, Chills, Erythema (eyes), Sore throat, Chest pain, Shortness of Breath, Cough, Abdominal pain, Vomiting, Nausea, Dysuria, Hematuria, Myalgia, Edema, Rash and Dizziness. - History Of Current Complaint Stated Complaint: POSS STROKE Hx Obtained From: Patient, EMS, Other: - maintentance man Onset/Duration: Unknown Timing: Constant, Lasting Hours Severity Initially: Mild Severity Currently: Mild Character: Agitation Aggravating Factor(s): Nothing Alleviating Factor(s): Nothing Associated Signs And Symptoms: Negative: Nausea, Vomiting, Fever - Allergies/Home Medications Allergies/Adverse Reactions: Allergies Allergy/AdvReac Type Severity Reaction Status Date / Time No Known Allergies Allergy Verified 04/10/16 08:50 Home Medications: Home Medications Albuterol HFA INHALER* [Ventolin HFA Inhaler*] 2 puff INH Q6H PRN 03/12/18 [ History Confirmed 03/12/18] Aspirin EC TAB* [Ecotrin EC Low Dose 81 MG*] 81 mg PO DAILY 03/12/18 [History Confirmed 03/12/18] Atorvastatin* [Lipitor*] 10 mg PO DAILY 03/12/18 [History Confirmed 03/12/18] Fluticasone NASAL SPRAY 50MCG* [Flonase NASAL SPRAY 50MCG*] 2 spray BOTH NARES DAILY 03/12/18 [History Confirmed 03/12/18] Multivitamins/Minerals TAB* [Theragran/minerals TAB*] 1 tab PO DAILY 03/12/18 [ History Confirmed 03/12/18] guaiFENesin ER TAB [Mucinex*] 600 mg PO BID PRN 03/12/18 [History Confirmed 09/21] PMH/Surg Hx/FS Hx/Imm Hx Endocrine/Hematology History: Reports: Hx Anticoagulant Therapy - for mechanical heart valve Denies: Hx Diabetes, Hx Systemic Lupus Erythematosus, Hx Thyroid Disease Cardiovascular History: Reports: Hx Atrial Fibrillation, Hx Hypercholesterolemia , Hx Hypertension, Other Cardiovascular Problems/Disorders - mechanical valve replacement Denies: Hx Congestive Heart Failure Respiratory History: Denies: Hx Asthma, Hx Chronic Obstructive Pulmonary Disease (COPD) GI History: Reports: Hx Gastroesophageal Reflux Disease Denies: Hx Ulcer History: Denies: Hx Dialysis, Hx Renal Disease Musculoskeletal History: Reports: Other Musculoskeletal History - right elbow fracture Denies: Hx Rheumatoid Arthritis Sensory History: Reports: Hx Contacts or Glasses, Hx Hearing Problem Opthamlomology History: Reports: Hx Contacts or Glasses Neurological History: Denies: Hx CVA, Hx Migraine Psychiatric History: Denies: Hx Anxiety, Hx Depression - Cancer History Hx Chemotherapy: No - Surgical History Surgery Procedure, Year, and Place: HEART VALVE REPLACEMENT 1994 - Immunization History Date of Tetanus Vaccine: UTD Date of Influenza Vaccine: UTD Infectious Disease History: No Infectious Disease History: Denies: Hx Clostridium Difficile, Hx Hepatitis, Hx Human Immunodeficiency Virus (HIV), Hx of Known/Suspected MRSA, Traveled Outside the in Last 30 Days - Family History Known Family History: Positive: Hypertension - Social History Lives: Alone Alcohol Use: Occasionally Substance Use Type: Reports: None Smoking Status (MU): Never Smoked Tobacco Review of Systems Negative: Fever, Chills Negative: Erythema Negative: Sore Throat Negative: Chest Pain Negative: Shortness Of Breath, Cough Negative: Abdominal Pain, Vomiting, Nausea Negative: dysuria, hematuria Negative: Myalgia, Edema Negative: Rash Neurological: Negative - dizziness, Other - positive: "acting nonsensical and combative" All Other Systems Reviewed And Are Negative: Yes Physical Exam - Summary Physical Exam Summary: Constitutional: Well-developed, Well-nourished, Alert. (-) Distressed Skin: Warm, Dry HENT: Normocephalic; Atraumatic Eyes: Conjunctiva normal, pinpoint pupils bilaterally. Neck: Musculoskeletal ROM normal neck. (-) JVD, (-) Stridor, (-) Tracheal deviation Cardio: Rhythm regular, rate normal, Heart sounds normal; Intact distal pulses; The pedal pulses are 2+ and symmetric. Radial pulses are 2+ and symmetric. (-) Murmur Pulmonary/Chest wall: Effort normal. (-) Respiratory distress, (-) Wheezes, (-) Rales Abd: Soft. (-) Tenderness, (-) Distension, (-) Guarding, (-) Rebound Musculoskeletal: Ecchymosis both hands, nontender, no deformity, (-) Edema Lymph: (-) Cervical adenopathy Neuro: Slurred verbal responses including expletives and snoring responses.Alert , Oriented x3, Strength normal, Cranial nerves II-XII are grossly intact. (-) Dysmetria, (-) Nystagmus, (-) Ataxia by finger to nose testing, (-) Sensory deficit. Psych: Mood and affect Normal GCS: 14 Triage Information Reviewed: Yes Vital Signs On Initial Exam: Initial Vitals Temp Pulse Resp BP Pulse Ox 96.9 F 63 15 134/77 95 03/12/18 10:44 03/12/18 10:44 03/12/18 10:44 03/12/18 10:44 03/12/18 10:44 Vital Signs Reviewed: Yes Diagnostics - Vital Signs Vital Signs Temp Pulse Resp BP Pulse Ox 03/12/18 10:44 96.9 F 63 15 134/77 95 - Laboratory Result Diagrams: 03/12/18 11:36 03/12/18 11:36 Lab Statement: Any lab studies that have been ordered have been reviewed, and results considered in the medical decision making process. - CT Brain CT Interpretation Completed By: Radiologist Summary of CT Findings: No acute intracranial process evident. Involutional change and stigmata of chronic small vessel ischemic disease. Chronic RIGHT maxillary sinusitis. ED provider has reviewed this imaging report. - EKG 10:54 Cardiac Rate: Other Rate - Sinus arrythmia at 69 bpm Summary of EKG Findings: EKG at 10:54 shows sinus arrhythmia at 69 bpm. No STEMI. Re-Evaluation - Re-Evaluation First Eval Re-Evaluation Time: 11:30 Change: Unchanged Comment: Per plant maintenance manager, the patient was found talking to a wall and agressive. The plant maintenance manager saw the patient playing with an imaginary mouse. He claims the patient is usually very sharp. He saw the patient's breakfast which was not eaten. He thinks that the cleaning lady most likely made his breakfast. He reports that usually the patient is alert and oriented. Second Eval Re-Evaluation Time: 12:05 Change: Unchanged Comment: Patient is awake and oriented, talking and unable to give a meaningful history. He denies pain or falls. He remembers EMS coming. Speech is still slurring. Altered Mental Statu Course/Dx - Course Course Of Treatment: An 87 y/o male brought in by [facility] ambulance presents to [facility] with a chief complaint of, per EMS, "acting nonsensical and combative". Per plant maintenance manager, the patient was found talking to a wall and agressive. The plant maintenance manager saw the patient playing with an imaginary mouse. He claims the patient is usually very sharp. He saw the patient's breakfast which was not eaten. He thinks that the cleaning lady most likely made his breakfast. He reports that usually the patient is alert and oriented. Brain CT impression: No acute intracranial process evident. Involutional change and stigmata of chronic small vessel ischemic disease. Chronic RIGHT maxillary sinusitis. EKG at 10:54 showed sinus arrythmia at 69 bpm. Lab results obtained. WBC high at 11.0. Upon re-eval the patient is awake and oriented, talking and unable to give a meaningful history. He denies pain or falls. He remembers EMS coming. His speech is still slurring. Discussed case with Dr. Dodd, Hospitalist, who accepted the patient for admission. - Diagnoses Differential Diagnosis/HQI/PQRI: CVA, Other - Delerium, dementia, electrolyte abnormality Provider Diagnoses: Altered mental status - Provider Notifications Discussed Care Of Patient With: Iain Dodd Time Discussed With Above Provider: 12:25 Instructed by Provider To: Admit As Inpatient Discharge - Sign-Out/Discharge Documenting (check all that apply): Patient Departure - admit - Discharge Plan Condition: Fair Disposition: ADMITTED TO [facility] Referrals: Kaley Cool MD [Primary Care Provider] - - Billing Disposition and Condition Condition: FAIR Disposition: Admitted to [facility] - Attestation Statements Document Initiated by Scribe: Yes Documenting Scribe: Bharathi Dodd Provider For Whom Scribe is Documenting (Include Credential): Fazal Friend MD Scribe Attestation: Bharathi Galvan, scribed for Fazal Friend MD on 03/12/18 at 1244. Scribe Documentation Reviewed: Yes Provider Attestation: The documentation as recorded by the Bharathi ballard accurately reflects the service I personally performed and the decisions made by Fazal xiao MD Status of Scribe Document: Viewed
[2018-03-12 11:43] LABS: ABS Basophils 0.1 10^3/ul (0-0.2); ABS Eosinophils 0 10^3/ul (0-0.6); ABS Lymphocytes 0.6 10^3/ul (1.0-4.8); ABS Monocytes 0.9 10^3/ul (0-0.8); ABS Neutrophils 9.4 10^3/ul (1.5-7.7); ABS Nucleated RBC 0 10^3/ul; Eosinophil % 0.3 %; Hematocrit 45 % (42-52); Hemoglobin 15.1 g/dl (14.0-18.0); Lymphocyte % 5.6 %; Mean Corpuscular HGB Conc 34 g/dl (31-36); Mean Corpuscular Hemoglobin 32 pg (27-31); Mean Corpuscular Volume 95 fL (80-94); Mean Platelet Volume 7.4 fL (7.4-10.4); Nucleated Red Blood Cells % 0; Platelet Count 205 10^3/ul (150-450); Red Cell Distribution Width 14 % (10.5-15)
[2018-03-12 11:58] LABS: Activated Partial Thrombo Time 35.4 seconds (26.0-36.3); INR 2.54 (0.77-1.02)
[2018-03-12 12:01] LABS: ALT 19 U/L (7-52); AST 27 U/L (13-39); Albumin 3.6 g/dL (3.2-5.2); Albumin/Globulin Ratio 1.1 (1-3); Alkaline Phosphatase 89 U/L (34-104); Anion Gap 7 mmol/L (2-11); BUN/Creatinine Ratio 20.8 (8-20); Blood Urea Nitrogen 20 mg/dL (6-24); CO2 Carbon Dioxide 24 mmol/L (22-32); Calcium 9.1 mg/dL (8.6-10.3); Chloride 107 mmol/L (101-111); EGFR Non-African American 73.9 (>60); Globulin 3.2 g/dL (2-4); Glucose 110 mg/dL (70-100); Potassium 4.1 mmol/L (3.5-5.0); Sodium 138 mmol/L (135-145); Total Protein 6.8 g/dL (6.4-8.9)
[2018-03-12 12:14] LABS: Alcohol < 10 mg/dL (<10)
[2018-03-12 12:16] LABS: Urine Appearance Cloudy; Urine Bacteria Absent (Absent); Urine Bilirubin Negative (Negative); Urine Blood 2+ (Negative); Urine Color Yellow; Urine Glucose Negative (Negative); Urine Ketones Trace (Negative); Urine Nitrite Negative (Negative); Urine Protein 1+(30 mg/dL) (Negative); Urine Red Blood Cell 2+(6-10/hpf) (Absent); Urine Specific Gravity 1.023 (1.010-1.030); Urine Urobilinogen Negative (Negative); Urine White Blood Cell Trace(0-5/hpf) (Absent)
[2018-03-12 12:41] LABS: Barbiturates Urine Screen None Detected (None Detect); Benzodiazepine Urine Screen Presumptive Positive (None Detect); Urine Cannabinoids Screen None Detected (None Detect)
[2018-03-12] MEDS ORDERED: Al Hydrox/Mg Hydrox/Simet LIQ* 30 ML UDC PO PRN (14:43)
[2018-03-12] MEDS ORDERED: Acetaminophen TAB* 325 MG PO PRN (14:43)
[2018-03-12] MEDS ORDERED: Albuterol 2.5 MG/3 ML NEB.SOL* (0.083%) INH PRN (14:43)
[2018-03-12] MEDS ORDERED: Albuterol HFA INHALER* 8 gm MDI INH PRN (15:12)
[2018-03-12 15:50] LABS: TSH (Thyroid Stimulating Horm) 0.07 mcIU/mL (0.34-5.60)
[2018-03-12] MEDS ORDERED: LORazepam INJ* 2 MG/ML 1 ML VIAL IV PUSH ONE (16:25)
[2018-03-12] MEDS ORDERED: Warfarin TAB(*) 5 MG PO SCH (17:00)
[2018-03-12 17:20] LABS: Free T4 1.16 ng/dL (0.61-1.12)
--- NOTE | 2018-03-12 20:27 | CONS ---
NEUROLOGY CONSULTATION NOTE: DATE OF CONSULT: 03/12/18 SOCIAL MEDIA JOB TITLES PROVIDER: Elidia Eugene NP REASON FOR CONSULT: Confusion and combative state. CHIEF COMPLAINT: "Do not touch me." HISTORY OF PRESENT ILLNESS: Mr. 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 The patient lives alone. I called the patient's niece who is listed as the person of contact, but there was absolutely no response despite having 2 phone numbers. The patient apparently appears to have no family contact except for his facilities maintenance assistant checks up on him 2 to 3 times a week. Apparently, according to the providers, the patient was last known well 2 days ago on 03/10/18. This morning, the patient was found on his computer not clicking or responding appropriately. There was a report that EMS found his coffee to be cold, hence the last known well exactly is unclear. The patient required 5 mg of Versed due to constant agitation, irritability, combativeness that improved with Versed. However, after a few hours, the patient 's symptoms returned. It was difficult to examine the patient as he was irritable and yelling out not to touch him. He is incoherent. He is perseverating on "press 1 button only." There were some reports that he may have had a right facial droop and right-sided weakness, but I was unable to appreciate that on my examination. An NIH Stroke Scale done today showed a score of 5 for 1 arouses to minor stimulation; 1 answers 1 question correctly; performs 1 task correctly; he has got a slight drift on the right lower extremity, and he has possible mild aphasia. The patient had a CT head without contrast that was personally reviewed and compared to a previous study. There is no acute intracranial abnormality. There is diffuse moderate cerebral atrophy. The patient also had laboratory data completed. WBC of 11, hemoglobin of 15, hematocrit of 45, platelet count of 205. INR 2.54. Sodium 138, potassium 4.1, chloride 107, carbon dioxide 24, creatinine 0.96, glucose of 110. TSH of 0.07. Urinalysis: No evidence of pyuria, but there is positive rbc. Toxicology screen is negative for any drugs except positive for benzodiazepine, which he received Versed en route. PAST MEDICAL HISTORY: As mentioned in the HPI. There is no history of dementia. He does have a history of esophageal stenosis. PAST SURGICAL HISTORY: EGD done in the past in 2015 for what the patient suspected a foreign object stuck in his throat. The patient refused to leave the ER without having an EGD done despite the providers reassuring him that he was able to drink water without any complication. CURRENT MEDICATIONS: 1. Warfarin 2.5 mg p.o. Monday, Monday, . 2. Warfarin 5 mg p.o. Monday, Monday, Monday, Monday. 3. Tamsulosin 0.4 mg p.o. daily. 4. Lisinopril 5 mg p.o. daily. 5. Guaifenesin 600 mg p.o. twice daily as needed. 6. Fluticasone 2 sprays both nares daily. 7. Multivitamins 1 tab p.o. daily. 8. Atorvastatin 10 mg p.o. daily. 9. Aspirin 81 mg p.o. daily. 10. Albuterol 2 puffs inhaled every 6 hours p.r.n. ALLERGIES: No known drug allergies. FAMILY HISTORY: His father in 1940 of unknown cause. His mother and 2 sisters have a history of cancer. SOCIAL HISTORY: The patient denies tobacco or alcohol use. The patient is retired from [employer]. He is . His healthcare proxy from a previous note is his niece who lives in [place], [place]. REVIEW OF SYSTEMS: The patient was unable to cooperate with review of systems. PHYSICAL EXAM: Well-nourished, well-developed, elderly man, in mild distress due to agitation. Head: Atraumatic, normocephalic without any obvious abnormality. Eyes: Conjunctivae/corneas are clear. Neck is supple and symmetrical with no carotid bruits. Lungs are clear to auscultation bilaterally. Cardiovascular: Regular rate and rhythm with normal S1, S2. Extremities: Normal range of motion with no cyanosis. He does have shiny lower extremities and possible foot deformities with hammertoes. Skin: No skin lesions or lacerations. Psych: Angry and irritable mood. He is difficult to establish rapport. Neurological Examination: The patient is awake , alert to self, but not place or time or general circumstances. He seems to have perseverated speech and is fixed on only pressing a button and raising the hands. He could be manifesting as mild receptive aphasia. Cranial Nerves: Normal confrontation testing bilaterally. Pupils are mid range and reactive to light. Sensation is intact on the forehead, cheeks, and jaw region bilaterally when the patient does participate with the exam. No facial droop. He is able to hear throughout the history process. Symmetrical palatal elevation. Normal strength against shoulder shrug resistance. Tongue is symmetrical and midline. Motor Examination: The patient would not participate or allow examiner near him, but he is able to move all 4 extremities. There is some external rotation of the right leg. Reflexes 1+ throughout the upper extremities, 0 in the lower extremities with flexor plantar responses bilaterally. Sensation is intact to light touch throughout. Coordination and Gait: The patient would not participate. ASSESSMENT: Mr. 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 His TSH is quite low, so encephalopathy related to autoimmune thyroid disease is in the differential. It is not clear but he also can be manifesting as someone with mild receptive aphasia, also known as Wernicke aphasia. Thus a vascular phenomenon to the left MCA vascular territory will need to be further evaluated. He has no reported history of alcohol use when reviewing the records, thus Wernicke encephalopathy is unlikely. He does have evidence of diffuse cortical atrophy, but no history of memory problems. However, the patient lives alone and may have had dementia for some time and now is delirious related to underlying dementia. Again, the etiology is unclear. We will need further testing. RECOMMENDATIONS: Please order an MRI brain without contrast. Please obtain a bedside routine EEG to evaluate for any epileptiform abnormalities. Continue low- dose Ativan for his agitation. Please start IV fluids. He may need a sitter at bedside. Continue neuro checks every 4 hours. I have ordered vitamin B12 and free T4 to be added on the labs. Depending on his EKG, we could use Haldol, preferably oral low dose of Seroquel for his agitation. Please obtain an EKG prior to starting any antipsychotic therapy. Neurology will continue to follow. I will continue to try contacting the patient's family or at least the facilities maintenance assistant to obtain further history. Our most important factor here is to keep the patient safe from falling especially given that he is on anticoagulation therapy with Coumadin and a therapeutic INR. Please practice delirium measures. Minimize any loud noises. Reorient the patient to time and place. Please ask the patient's permission before obtaining any blood draws or vitals. TIME SPENT: 70 minutes of which greater than 50% was spent obtaining the history, interviewing the patient, examining the patient, and discussing the treatment plan with the primary provider. [id number]/CPS #: [id number] JACKIE
[2018-03-12] MEDS ORDERED: Diazepam TAB(*) 5 MG PO ONE (20:38)
--- NOTE | 2018-03-13 02:19 | HP ---
CC: Dr. Kaley Cool at [facility] * HISTORY AND PHYSICAL: DATE OF ADMISSION: 03/12/18 PROVIDER: Elidia Eugene NP PRIMARY CARE PROVIDER: Dr. Kaley Cool. ATTENDING PHYSICIAN WHILE IN THE HOSPITAL: Dr. Iain Dodd * (dictated by Elidia Eugene NP). CHIEF COMPLAINT: Altered mental status. HISTORY OF PRESENT ILLNESS: Mr. Cristobal is an 87-year-old male who was brought to the emergency room by EMS after a six color press operator found the patient at his home sitting at the computer desk and the computer was not on, attempting to use the mouse that was in his hand, confused. The practicing md anesthesiologist reports that he last saw the patient approximately 2 days ago as he only does just check on the patient every couple days. The patient is unable to give any medical history. He is only oriented to person. He is confused to place and time. The practicing md anesthesiologist reports that he saw the patient normal 2 days ago. He reports that the patient is high functioning, he is able to drive, he does his own grocery shopping, and he is normally alert and oriented with no deficits. The practicing md anesthesiologist reports that he went to check on the patient today and found him sitting at the computer with a black screen and the patient was confused; he was attempting to use the mouse, but there was no mouse in his hand. Given this , the practicing md anesthesiologist called EMS. The patient, upon EMS and police arrival, became very combative, so he was given Versed in the ambulance 5 mg for his combativeness and was brought to the emergency room for further evaluation. The practicing md anesthesiologist also reports that the patient had slurred speech and a hard time getting his words out. While in the emergency room, due to his altered mental status we were asked by the emergency room to admit him for evaluation. PAST MEDICAL HISTORY: Obtained from his old records dated April 2016. He has a history of atrial fibrillation, he is on Coumadin. He has a history of valve replacement, hyperlipidemia, hypertension, history of esophageal stenosis that requires dilation. HOME MEDICATIONS: Obtained from his doctor's office: 1. Warfarin 5 mg p.o. Monday, Monday, Monday, and Monday. 2. Warfarin 2.5 mg Monday, Monday, and . 3. Guaifenesin 600 mg p.o. b.i.d. p.r.n. 4. Tamsulosin 0.4 mg p.o. daily. 5. Lisinopril 5 mg p.o. daily. 6. Fluticasone nasal spray 2 sprays both nares daily. 7. Multivitamin 1 tab p.o. daily. 8. Atorvastatin 10 mg p.o. daily. 9. Aspirin 81 mg p.o. daily. 10. Albuterol HFA inhaler 2 puffs q.6 hours as needed for shortness of breath. ALLERGIES: No known drug allergies. FAMILY HISTORY: Obtained from old records. Father in 1940s of an unknown cause. Mother and 2 sisters had a history of cancer. Rest of his history is unknown. SOCIAL HISTORY: Also obtained from his medical records and the [employer] maintenance mechanic who checks on the patient on a regular basis. The six color press operator denied any tobacco or alcohol use. 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 He is . He lists Akua Esposito, a niece who currently lives in [place], [place], as his healthcare proxy, her phone number is [phone]. He is a full code at this time. This does need to be confirmed with his niece as she is traveling here from [place] at this time. REVIEW OF SYSTEMS: Unable to obtain a review of systems due to the patient's level of consciousness. He is only following select commands and responds inappropriately to questions when asked. PHYSICAL EXAMINATION GENERAL: At this time, Mr. Cristobal is an 87-year-old male. He is confused, oriented to name only. He appears agitated, resting on the stretcher in the emergency room. VITAL SIGNS: Temperature was 98.2, heart rate 84, respirations are 20, O2 saturation 94% on room air, blood pressure 133/76. HEENT: Head is atraumatic and normocephalic. Pupils are 2 mm and equal and reactive to light. NECK: Supple. LUNGS: Clear to auscultation bilaterally. No wheezes, rales, or rhonchi. CARDIAC: S1, S2. He does have a murmur. ABDOMEN: Soft and nontender. Bowel sounds are present x4. EXTREMITIES: Pedal pulses are +2 bilaterally. Radial pulses are +2. He does have some right arm and right leg weakness. NEUROLOGIC: He is alert, oriented to person only. He follows some commands. He does have some left facial droop and right arm pull is weak. Left leg with a drift that drops to the bed before 3 seconds. SKIN: Intact. LABORATORY DATA AND DIAGNOSTIC STUDIES: WBCs were 11.0, RBCs 4.70, hemoglobin was 15.1, hematocrit was 45, platelet count was 205. INR was 2.54. Chemistries : Sodium 138, potassium 4.1, chloride 107, carbon dioxide was 24, anion gap was 7, BUN was 20, creatinine 0.96, glucose was 110, lactic acid was 1.5, calcium 9.1. ASTs were 27, ALTs were 19, alkaline phosphatase was 89. Troponin was 0.01. TSH was 0.07, free T4 was 1.16. Urine: Protein was 1+, ketones was trace, blood was 2+, urine nitrites were negative, bilirubin was negative, urobilinogen was negative, urine leukocyte esterase was trace, urine wbc's were trace, bacteria was absent, hyaline casts were present, glucose was negative. Urine opioids, barbiturates, amphetamines, cocaine, cannabinoids were all negative. Serum alcohol was less than 10. He did have benzodiazepine that was positive, but he did receive Versed en route to the emergency room. He had a CT of the brain, radiologist's impression: No acute intracranial process was evident, involutional change, stigmata for chronic small vessel ischemic disease, chronic right maxillary sinusitis. He had a chest x-ray, radiologist's impression: Right pleural effusion and right basilar atelectasis. Left lung field is clear. He had an echocardiogram , which showed sinus arrhythmia, rate of 69, inverted P waves in lead III. ASSESSMENT AND PLAN: Mr. Cristobal is an 87-year-old male with a past medical history significant for atrial fibrillation, valve replacement, on chronic Coumadin therapy, hypertension, hyperlipidemia, presented to the emergency room with altered mental status. He will be placed in inpatient for: 1. Altered mental status. He will be ruled out for cerebrovascular accident. We will get an MRA of the head, MRI of the brain. He will have carotid duplex of the neck and a transthoracic echocardiogram with bubble study. He will have neuro checks q.2 hours, be placed on professor of anthropology overnight for any arrhythmias. He is currently on Coumadin. He will have baby aspirin 81 mg p.o. daily and atorvastatin 10 mg p.o. daily. He was seen in consultation by Neurology. Further recommendations are pending imaging study. He will also have a swallow evaluation, PT and OT evaluation. We will add EEG as well. 2. Paroxysmal atrial fibrillation. We will continue him on Coumadin as previously prescribed. 3. Hypertension. Continue on lisinopril 5 mg p.o. daily. 4. Hyperlipidemia. Continue on atorvastatin 10 mg p.o. daily. 5. DVT prophylaxis. He will continue on Coumadin. His INR is therapeutic at this time. 6. Code status. He is a full code. This needs to be confirmed with his niece. TIME SPENT: Time spent on this admission was approximately 60 minutes; greater than half that time was spent at the bedside reviewing events events leading thus far to his hospitalization with the care from practicing md anesthesiologist, completing my assessment, and implementing my plan of care. I have discussed this with my attending, Dr. Iain Dodd; he is in agreement with my plan. ELIDIA EUGENE, HANNA [id number]/CPS #: [id number] JACKIE
--- NOTE | 2018-03-13 08:15 | CONSULT ---
Consult Consult: [facility] Inpatient Consult Note Date of Consult: 03/13/18 Reason for Consult: delirium, thyrotoxicosis Reason for Admission: acute mental status change ASSESSMENT: 87 yo M with acute encephalopathy of unclear etiology and abnormal thyroid function tests. Patient appears euthyroid with normal thyroid exam, but has biochemical evidence of mild hyperthyroid state that may be contributing to current syndrome. Broad differential diagnosis, as noted in neurology consult note from 03/12/18. Thyroid function tests do not point to thyroiditis as underlying etiology. Instead, the history over the past 24 hours suggests toxic metabolic encephalopathy (as a result of ingestion +/- warfarin). Dextromethorphan-induced delirium is a possibility. He appears well today, AOx4 , and was able answer all questions politely without hesitation. Note is made of bilateral miosis on exam today, unclear etiology. PLAN: - check TRAb (thyrotropin receptor) and TPO antibodies for autoimmune thyroiditis - recheck TSH, free T3 and free T4 - no indication for anti-thyroid or immunosuppressive therapy at this time SUBJECTIVE: History of Present Illness: 87 yo with history of valvular cardiomyopathy and AF , now admitted for acute mental status change. He was in his usual state of good health until yesterday, when a pattern generator operator found him staring at his computer and trying to "speak Monegasque" to his computer mouse and/or cell phone. EMS was contacted for transport, at which time patient became combative and required Versed sedation. He has no recollection of events after this. 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 His passed several years ago and he has been living with a practice or student teacher couple for several years since then. He is followed closely by Dr. Cool at [facility] in [place], [place]. There have been no recent medication changes or illness. Past Medical History: - AF on anticoagulation - valve replacement - dyslipidemia - hypertension - esophageal stricture Medications Prior to Admission: Lisinopril TAB* [Prinivil TAB 10 MG*] 5 mg PO DAILY 04/16/12 [History Confirmed 03/12/18] Tamsulosin CAP* [Flomax CAP*] 0.4 mg PO DAILY 04/16/12 [History Confirmed ] Warfarin TAB(*) [Coumadin TAB(*)] 2.5 mg PO SUTUTH 04/16/12 [History Confirmed 03/12/18] Warfarin TAB(*) [Coumadin TAB(*)] 5 mg PO MOWEFRSA 04/16/12 [History Confirmed 03/12/18] Albuterol HFA INHALER* [Ventolin HFA Inhaler*] 2 puff INH Q6H PRN 03/12/18 [ History Confirmed 03/12/18] Aspirin EC TAB* [Ecotrin EC Low Dose 81 MG*] 81 mg PO DAILY 03/12/18 [History Confirmed 03/12/18] Atorvastatin* [Lipitor*] 10 mg PO DAILY 03/12/18 [History Confirmed 03/12/18] Fluticasone NASAL SPRAY 50MCG* [Flonase NASAL SPRAY 50MCG*] 2 spray BOTH NARES DAILY 03/12/18 [History Confirmed 03/12/18] Multivitamins/Minerals TAB* [Theragran/minerals TAB*] 1 tab PO DAILY 03/12/18 [ History Confirmed 03/12/18] guaiFENesin ER TAB [Mucinex*] 600 mg PO BID PRN 03/12/18 [History Confirmed 09/21] Inpatient Medications: Acetaminophen (Tylenol Tab*) 650 mg PO Q4H PRN PRN Reason: FEVER/PAIN Al Hydrox/Mg Hydrox/Simethicone (Maalox Plus*) 30 ml PO Q6H PRN PRN Reason: INDIGESTION Albuterol (Ventolin 2.5 Mg/3 Ml Neb.Aure*) 2.5 mg INH [id number] AWAKE PRN PRN Reason: sob/wheezing Albuterol (Ventolin Hfa Inhaler*) 2 puff INH Q6H PRN PRN Reason: SHORTNESS OF BREATH Aspirin (Aspirin Ec Tab*) 81 mg PO DAILY [facility] Atorvastatin Calcium (Lipitor*) 10 mg PO DAILY [facility] Fluticasone Propionate (Flonase Nasal [place] 50mcg*) 2 spray BOTH NARES DAILY [facility] Lisinopril (Prinivil Tab*) 5 mg PO DAILY [facility] Multivitamins/Minerals (Theragran/Minerals Tab*) 1 tab PO DAILY [facility] Tamsulosin HCl (Flomax Cap*) 0.4 mg PO DAILY [facility] Warfarin Sodium (Coumadin Tab(*)) 2.5 mg PO SuTuTh@1700 ANIKA; Protocol Warfarin Sodium (Coumadin Tab(*)) 5 mg PO MoWeFrSa@1700 ANIKA; Protocol Last Admin: 03/12/18 17:32 Dose: 5 mg Allergies/Intolerances: NKDA Social History: No alcohol, tobacco or drugs. Lives alone, and is retired from [employer]. HCP is niece in [place], [place]. Family History: Cancer in siblings, otherwise non-contributory. Review of Systems: Unable to obtain due to patient mental status. OBJECTIVE: Temp Pulse Resp BP Pulse Ox 97.6 F 66 18 127/53 97 03/13/18 07:32 03/13/18 07:32 03/13/18 07:32 03/13/18 07:32 03/13/18 07:32 General: alert, pleasant, oriented, no distress ENT: neck supple, no thyromegaly, no bruit is heard, BILATERAL miosis noted Chest: CTAB, no wheezing or crackles CV: RRR, no murmur Abdomen: soft, non-tender Extremities: no edema, distal pulses intact Skin: warm, dry, no rash Neuro: grossly intact motor/sensory in extremities Psych: restricted affect, pleasant Labs: WBC 11.0 10^3/ul (3.5-10.8) H 03/12/18 11:36 RBC 4.70 10^6/ul (4.00-5.40) 03/12/18 11:36 Hgb 15.1 g/dl (14.0-18.0) 03/12/18 11:36 Hct 45 % (42-52) 03/12/18 11:36 MCV 95 fL (80-94) H 03/12/18 11:36 MCH 32 pg (27-31) H 03/12/18 11:36 MCHC 34 g/dl (31-36) 03/12/18 11:36 RDW 14 % (10.5-15) 03/12/18 11:36 Plt Count 205 10^3/ul (150-450) 03/12/18 11:36 MPV 7.4 fL (7.4-10.4) 03/12/18 11:36 Neut % (Auto) 85.2 % 03/12/18 11:36 Lymph % (Auto) 5.6 % 03/12/18 11:36 Gilchrist % (Auto) 8.4 % 03/12/18 11:36 Eos % (Auto) 0.3 % 03/12/18 11:36 Baso % (Auto) 0.5 % 03/12/18 11:36 Absolute Neuts (auto) 9.4 10^3/ul (1.5-7.7) H 03/12/18 11:36 Absolute Lymphs (auto) 0.6 10^3/ul (1.0-4.8) L 03/12/18 11:36 Absolute Monos (auto) 0.9 10^3/ul (0-0.8) H 03/12/18 11:36 Absolute Eos (auto) 0 10^3/ul (0-0.6) 03/12/18 11:36 Absolute Basos (auto) 0.1 10^3/ul (0-0.2) 03/12/18 11:36 Absolute Nucleated RBC 0 10^3/ul 03/12/18 11:36 Nucleated RBC % 0 03/12/18 11:36 INR (Anticoag Therapy) 2.54 (0.77-1.02) H 03/12/18 11:36 APTT 35.4 seconds (26.0-36.3) 03/12/18 11:36 Sodium 138 mmol/L (135-145) 03/12/18 11:36 Potassium 4.1 mmol/L (3.5-5.0) 03/12/18 11:36 Chloride 107 mmol/L (101-111) 03/12/18 11:36 Carbon Dioxide 24 mmol/L (22-32) 03/12/18 11:36 Anion Gap 7 mmol/L (2-11) 03/12/18 11:36 BUN 20 mg/dL (6-24) 03/12/18 11:36 Creatinine 0.96 mg/dL (0.67-1.17) 03/12/18 11:36 Est GFR ( Amer) 89.4 (>60) 03/12/18 11:36 Est GFR (Non-Af Amer) 73.9 (>60) 03/12/18 11:36 BUN/Creatinine Ratio 20.8 (8-20) H 03/12/18 11:36 Glucose 110 mg/dL (70-100) H 03/12/18 11:36 POC Glucose (mg/dL) 105 mg/dL (70-100) H 03/12/18 10:46 Lactic Acid 1.5 mmol/L (0.5-2.0) 03/12/18 11:36 Calcium 9.1 mg/dL (8.6-10.3) 03/12/18 11:36 Total Bilirubin 0.60 mg/dL (0.2-1.0) 03/12/18 11:36 AST 27 U/L (13-39) 03/12/18 11:36 ALT 19 U/L (7-52) 03/12/18 11:36 Alkaline Phosphatase 89 U/L (34-104) 03/12/18 11:36 Troponin I 0.01 ng/mL (<0.04) 03/12/18 11:36 Total Protein 6.8 g/dL (6.4-8.9) 03/12/18 11:36 Albumin 3.6 g/dL (3.2-5.2) 03/12/18 11:36 Globulin 3.2 g/dL (2-4) 03/12/18 11:36 Albumin/Globulin Ratio 1.1 (1-3) 03/12/18 11:36 Vitamin B12 598 pg/mL (180-914) 03/12/18 11:36 TSH 0.07 mcIU/mL (0.34-5.60) L 03/12/18 11:36 Free T4 1.16 ng/dL (0.61-1.12) H 03/12/18 11:36 Urine Color Yellow 03/12/18 11:54 Urine Appearance Cloudy 03/12/18 11:54 Urine pH 5.0 (5-9) 03/12/18 11:54 Ur Specific [place] 1.023 (1.010-1.030) 03/12/18 11:54 Urine Protein 1+(30 mg/dl) (Negative) A 03/12/18 11:54 Urine Ketones Trace (Negative) A 03/12/18 11:54 Urine Blood 2+ (Negative) A 03/12/18 11:54 Urine Nitrate Negative (Negative) 03/12/18 11:54 Urine Bilirubin Negative (Negative) 03/12/18 11:54 Urine Urobilinogen Negative (Negative) 03/12/18 11:54 Ur Leukocyte Esterase Trace (Negative) A 03/12/18 11:54 Urine WBC (Auto) Trace(0-5/hpf) (Absent) 03/12/18 11:54 Urine RBC (Auto) 2+(6-10/hpf) (Absent) A 03/12/18 11:54 Urine Bacteria Absent (Absent) 03/12/18 11:54 Hyaline Casts Present (Absent) A 03/12/18 11:54 Urine Glucose Negative (Negative) 03/12/18 11:54 Urine Ascorbic Acid * (Negative) A 03/12/18 11:54 Urine Opiates Screen None detected (None Detect) 03/12/18 11:54 Ur Barbiturates Screen None detected (None Detect) 03/12/18 11:54 Ur Phencyclidine Scrn None detected (None Detect) 03/12/18 11:54 Ur Amphetamines Screen None detected (None Detect) 03/12/18 11:54 U Benzodiazepines Scrn Presumptive positive (None Detect) A 03/12/18 11:54 Urine Cocaine Screen None detected (None Detect) 03/12/18 11:54 U Cannabinoids Screen None detected (None Detect) 03/12/18 11:54 Serum Alcohol < 10 mg/dL (<10) 03/12/18 11:36
[2018-03-13] MEDS ORDERED: Fluticasone NASAL SPRAY 50MCG* 16 gm SPRAY BTL BOTH NARES SCH (09:00)
[2018-03-13] MEDS ORDERED: Multivitamins/Minerals TAB PO SCH (09:00)
[2018-03-13] MEDS ORDERED: Lisinopril TAB* 5 MG PO SCH (09:00)
[2018-03-13] MEDS ORDERED: Tamsulosin CAP* 0.4 MG PO SCH (09:00)
[2018-03-13] MEDS ORDERED: Atorvastatin* 10 MG TAB PO SCH (09:00)
[2018-03-13] MEDS ORDERED: Aspirin EC TAB* 81 MG TAB.EC PO SCH (09:00)
[2018-03-13 11:25] VITALS: BP 132/71
--- NOTE | 2018-03-13 15:13 | PN ---
Subjective Date of Service: 03/13/18 Length of Stay: 1 Days Neurology is following Mr. Cristobal for the evaluation and management of acute episode of confusion. Interval History: He was able to provide further history today. I also met the patient's niece and Zach who is his part-time caregiver. Zach informed me today that the patient was found in the morning hallucination, saying things that did not make any sense, seeing objects that were not there, and seems overall confused. When EMS arrived, the patient was agitated because "people were not letting me do what I want." He does not recall what took place yesterday. He does feel like he is back to his normal self. He has never had any similar episodes in the past but did inform me that he fell 10 years ago and was hospitalized in the ICU for a "bleed in the scalp." He denied every having any seizures. The patient does take Mucinex regularly and drinks at least 1 pot of coffee a day. Review of Systems: Denied CP, SOB, or palpitations. Objective Active Medications: Acetaminophen (Tylenol Tab*) 650 mg PO Q4H PRN PRN Reason: FEVER/PAIN Al Hydrox/Mg Hydrox/Simethicone (Maalox Plus*) 30 ml PO Q6H PRN PRN Reason: INDIGESTION Albuterol (Ventolin 2.5 Mg/3 Ml Neb.Aure*) 2.5 mg INH [id number] AWAKE PRN PRN Reason: sob/wheezing Albuterol (Ventolin Hfa Inhaler*) 2 puff INH Q6H PRN PRN Reason: SHORTNESS OF BREATH Aspirin (Aspirin Ec Tab*) 81 mg PO DAILY [facility] Last Admin: 03/13/18 08:31 Dose: 81 mg Atorvastatin Calcium (Lipitor*) 10 mg PO DAILY ON [facility] Last Admin: 03/13/18 08:31 Dose: 10 mg Fluticasone Propionate (Flonase Nasal [place] 50mcg*) 2 spray BOTH NARES DAILY ON [facility] Last Admin: 03/13/18 10:07 Dose: 2 spray Lisinopril (Prinivil Tab*) 5 mg PO DAILY [facility] Last Admin: 03/13/18 08:31 Dose: 5 mg Multivitamins/Minerals (Theragran/Minerals Tab*) 1 tab PO DAILY [facility] Last Admin: 01/08/19 08:31 Dose: 1 tab Tamsulosin HCl (Flomax Cap*) 0.4 mg PO DAILY [facility] Last Admin: 03/13/18 08:31 Dose: 0.4 mg Warfarin Sodium (Coumadin Tab(*)) 2.5 mg PO SuTuTh@1700 [facility]; Protocol Warfarin Sodium (Coumadin Tab(*)) 5 mg PO MoWeFrSa@1700 [facility]; Protocol Last Admin: 03/12/18 17:32 Dose: 5 mg Vital Signs 03/12/18 03/12/18 03/12/18 16:17 16:39 17:04 Temperature 97.8 F 97.3 F Pulse Rate 75 66 Respiratory 18 24 16 Rate Blood Pressure 140/74 142/66 (mmHg) O2 Sat by Pulse 94 97 Oximetry 03/12/18 03/12/18 03/12/18 17:32 20:00 20:19 Temperature 98.2 F Pulse Rate 84 Respiratory 18 20 20 Rate Blood Pressure 133/76 (mmHg) O2 Sat by Pulse 94 Oximetry 03/12/18 03/12/18 03/13/18 22:22 23:29 00:44 Temperature 97.4 F Pulse Rate 71 Respiratory 24 20 14 Rate Blood Pressure 134/72 (mmHg) O2 Sat by Pulse 99 Oximetry 03/13/18 03/13/18 03/13/18 03:21 07:32 08:00 Temperature 97.5 F 97.6 F Pulse Rate 64 66 Respiratory 16 18 18 Rate Blood Pressure 116/81 127/53 (mmHg) O2 Sat by Pulse 94 97 Oximetry 03/13/18 11:11 Temperature 97.6 F Pulse Rate 73 Respiratory 18 Rate Blood Pressure 132/71 (mmHg) O2 Sat by Pulse Oximetry Intake and Output Last 24 Hours 03/11/18 03/12/18 03/13/18 03/14/18 06:59 06:59 06:59 06:59 Intake Total 0 120 Balance 0 120 Weight 170 lb Intake: Oral 0 120 Other: Estimated Void Medium # Bowel Movements 1 0 Estimated Stool Amount Small # Voids 1 1 Oxygen Devices in Use Now: None Neurology Exam: General: Well nourished elderly man in no acute distress. He is very pleasant. HEENT: Normocephalic/atraumatic, sclera anicteric, mucous membranes moist Neck: Supple Chest: Clear to auscultation bilaterally Cardiovascular: Regular rate and rhythm without murmurs, rubs, gallops Abdomen: Soft, nontender/nondistended Extremities: No clubbing, cyanosis, or edema Neurological Findings: Awake, Alert, Oriented to self, place, and time. He told me it was 1919 but then corrected and stated that it was 2019. He knew the president. He knew what year the presidential and mid term elections took place the past 3 years. MOCA was done at bedside and he scored 27/30. He had trouble recalling 2 objects after one minute, could not name more than 11 objects that began with the letter F in 60 seconds. Speech: fluent without dysrhythmia, repetition intact Cranial Nerve: PEERL, EOM intact, VFF, no nystagmus, face symmetric bilaterally , facial sensation intact, hearing intact to finger rub bilaterally, palate elevates symmetrically, tongue midline, SCM and Trapezius s/s. Motor: s/s throughout, proximal and distal extremities x4 tone/bulk normal Sensation: intact to LT/PP bilaterally upper and lower extremities Deep Tendon Reflex: 2+ symmetric in the upper/lower extremities, absent at the ankles, Babinski - down going Finger to nose, rapid alternating movements intact without tremor, no dysdiadochokinesia Gait: intact with good arm swing and stride Result Diagrams: 03/12/18 11:36 03/12/18 11:36 Additional Lab and Data: 03/12/2018 Vitamin B12: 598 TSH: 0.07 Free T4: 1.16 Microbiology and Other Data: Microbiology 03/12/18 11:54 Urine Culture - Final Urine No Growth (<1,000 CFU/mL) Diagnostic Imaging: MRI brain without contrast completed on 03/12/2018: independently reviewed. Diffuse cerebral atrophy. There is no acute infarction. MRA head without contrast completed on 03/12/2018: reviewed. No acute intracranial abnormality. Carotid Doppler study 03/13/2018: mild plaque within the carotid bulbs and proximal internal carotid arteries. Antegrade flow in both vertebral arteries. Assessment/Plan Mr. Derrell Cristobal is an 87-year-old man who is on coumadin therapy for atrial fibrillation who presented with acute confusion state on 03/12/2018. 1. Acute encephalopathy- resolved. I suspect this was most likely related to acute toxic-metabolic encephalopathy of unclear etiology. Coffee and dextromethorphan use could have been the culprit. The patient was counseled regarding the reduction in caffeine intake. He should not be using Mucinex or other cough suppressants regularly. I don't think he is symptomatic from the mild hyperthyroidism. Reviewed Dr. Lord's note and recommendations. Please defer to gloria's recommendations for more details. He has no evidence of stroke or seizures. 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 He scored well on the [facility] Cognitive Assessment tool. I would be more than happy to see him in the clinic for follow-up in 3-4 weeks. He should not be driving for at least one week, although he has no absolute contraindication since he never lost consciousness. Discussed treatment plan with Dr. Oneal.
[2018-03-13] MEDS ORDERED: Warfarin TAB(*) 2.5 MG PO SCH (17:00)
--- NOTE | 2018-03-13 20:17 | EEG ---
ELECTROENCEPHALOGRAPHY: DATE OF STUDY: 03/13/18 - ROOM #[id number] ORDERED BY: Elidia Eugene NP. CLINICAL PROBLEM: Mr. Derrell Cristobal is an 87-year-old man with multiple falls , who presented with acute encephalopathy, irritability, agitation, that has since resolved. This EEG was obtained to evaluate for epileptiform discharges or electrographic seizures. MEDICATIONS: 1. Warfarin. 2. Aspirin. 3. Atorvastatin. 4. Lisinopril. 5. Theragran. 6. Tamsulosin. 7. Acetaminophen. 8. Maalox. 9. Ventolin. CLINICAL STATE: Waking and drowsy. REPORT: The waking background showed appropriate organization with clearly defined anterior-posterior voltage and frequency gradients. There was a well- defined posterior dominant rhythm of 8.5 Hz, which was symmetrical and showed normal reactivity. Anteriorly, there was an expected pattern of lower voltage, irregular, mixed faster frequency. Throughout the recording, there were intermittent, occasional, right and left, independent, polymorphic 3-5 Hz delta and theta slowing, maximal seen at T4 and at T5. The slowing lasted 1-2 seconds. There were no epileptiform discharges. Hyperventilation and photic stimulation were not performed. Attenuation of the occipital rhythm accompanied drowsiness. Single electrode EKG showed a normal sinus rhythm with a rate of 75 beats per minute. Throughout the recording, there were no epileptiform discharges or seizures. CLINICAL IMPRESSION: This is an abnormal waking and drowsy EEG due to the presence of intermittent, independent slowing in the temporal regions bilaterally. These findings could be seen in the setting of cerebral atrophy as well as a structural abnormality. There were no epileptiform discharges or electrographic seizures. [id number]/[facility] #: [id number] [facility]
--- NOTE | 2018-03-13 20:52 | DS ---
CC: Dr. Cool; Dr. Jorge Lord; Dr. Maya * DISCHARGE SUMMARY: DATE OF ADMISSION: 03/12/18 DATE OF DISCHARGE: 03/13/18 PRIMARY CARE PROVIDER: Dr. Cool. NEUROLOGIST: Dr. Maya. DISCHARGE DIAGNOSES: Transient alteration of mental status with delirium that was acute and resolved. The suspected contributing factor was use of dextromethorphan with guaifenesin as well as possible p.o. caffeine intoxication from coffee. SECONDARY DIAGNOSES: 1. History of atrial fibrillation, on Coumadin. 2. History of valve replacement. 3. Hyperlipidemia. 4. Hypertension. 5. History of esophageal stenosis with dilatation in the past. MEDICATIONS AT DISCHARGE: Apart from discontinuation of dextromethorphan, are unchanged and include: 1. Albuterol inhaler on a p.r.n. basis. 2. Aspirin 81 mg daily. 3. Lipitor 10 mg daily. 4. Fluticasone nasal spray, 2 sprays both nostrils daily. 5. Lisinopril 5 mg daily. 6. Multivitamin 1 tablet daily. 7. Flomax 0.4 mg daily. 8. Coumadin 2.5 mg on Sundays, Tuesdays, and and 5 mg on the remaining days of the week. LABORATORY DATA: On 03/12/18, sodium of 138, potassium 4.1, chloride 107, carbon dioxide 24, BUN 20, creatinine 0.96. Liver function tests were unremarkable. TSH of 0.07 and free T4 of 1.17. CBC at admission showed a white blood cell count of 11.0, hemoglobin of 15.1, hematocrit 45, and platelets of 205. INR at admission was 2.5. Urinalysis at admission obtained from straight catheterization showed +2 rbc's, absent bacteria, trace esterase, negative nitrites. Toxicology screening was presumptively positive for benzodiazepines. Please note that the patient received Versed in route to the emergency department. DIAGNOSTIC STUDIES: Carotid Doppler studies obtained on 03/13/18, impression: "There is mild plaque presenting at the carotid bulbs and proximal internal carotid arteries. No hemodynamically significant stenosis is seen." Pelvic x-ray on 03/12/18, impression: "No contraindication to MRI of the abdomen and pelvis." Brain MRI obtained on 03/12/18, impression: "No MRI evidence of acute infarct. Right maxillary sinusitis. Other chronic findings as above." Head MRA obtained on 03/12/18, impression: "No acute findings." CONSULTATIONS DURING THE HOSPITAL STAY: Included Dr. Jorge Lord from endocrinology and Dr. Maya from neurology. HOSPITALIZATION COURSE: Derrell Cristobal is an 87-year-old male with history of atrial fibrillation, on Coumadin, who was noted in acute confusional state on . The patient was apparently trying to operate a computer with a mouse that was not in his hand. He became combative and very agitated, required Versed in route to the emergency department. He still appeared delirious when in the emergency department, very confused and agitated. He was admitted to the hospital. He spent the night and his mentation was back to normal the very next morning. He was seen by neurology claims consultant with initial differential being the possibility of CVA versus Wernicke aphasia versus toxic metabolic encephalopathy. Nevertheless, his MRA and MRIs were unremarkable. His EEG as per verbal report from Dr. Maya showed mild temporal slowing, but no epileptiform abnormalities noted. Once again, the patient was back to his baseline on the morning of the day of discharge. Interestingly enough, apparently, the patient had "adopted granddaughter" living in his home for the past year and a half and she left just a week before his presentation to the ED. The patient noted that he drinks approximately 1.5 L of coffee a day and uses guaifenesin with dextromethorphan for cough. It is possible that the patient had a combination of dextromethorphan, guaifenesin, and caffeine intoxication. The patient was recommended to limit his coffee intake to 2 cups a day and not to use dextromethorphan with guaifenesin anymore. He also is recommended not to drive for the next week until he is seen by his primary care provider for a followup and okayed for that. The patient is recommended to follow up with Dr. Maya from Neurology in approximately 1 month. The patient had abnormal thyroid function studies and he was seen by Dr. Lord from endocrinology. Dr. Lord recommended further lab work that includes thyroid peroxidase antibody level as well as thyrotropin receptor antibody levels. Dr. Lord is going to see the patient in approximately 1 month for a followup with further blood work. The suspicion is that the patient's abnormal lab work/thyroid studies may be due to his acute confusional mental state and not related to hyperthyroidism. PHYSICAL EXAM AT THE TIME OF DISCHARGE: Blood pressure of 132/71, heart rate of 73 and regular, respiratory rate 18, oxygen saturation 97% on room air, temperature 97.6. General: The patient is a very pleasant 87-year-old male who is in no acute distress. Alert, awake, and oriented x3. HEENT: Head: Atraumatic, normocephalic. Eyes: Pupils are equal, reactive to light and accommodation. Oropharynx is clear. Mucosa moist. Neck: Supple. No JVD. No bruits bilaterally. Cardiovascular: Irregularly irregular rhythm. No murmur. Respiratory: Clear to auscultation bilaterally. Abdomen: Soft and nontender. Bowel sounds are present in all 4 quadrants. Extremities: There is no edema. Pulses are +2 bilaterally. No clubbing or cyanosis. Neuro Evaluation: Speech clear. Cranial nerves II through XII grossly intact. Motor strength is 5/5 bilaterally. Please note that this is a short summary of the patient's hospitalization. Please refer to further medical records for details. TIME SPENT: Approximately 35 minutes were spent on the patient's discharge. [id number]/[facility] #: [id number] [facility]
== END 2018-03-13 15:45 | disposition home or self-care (01) ==
LOC: ED 10:41 → INTOOBSV 14:43 → MED 14:43 → MEDTELE 16:16
PROVIDERS: ADMIT Internal Medicine; ATTEND Internal Medicine
DX: R41.82 Altered mental status, unspecified (principal); Z79.01 Long term (current) use of anticoagulants; R41.0 Disorientation, unspecified; I48.91 Unspecified atrial fibrillation; Z95.4 Presence of other heart-valve replacement; E78.5 Hyperlipidemia, unspecified; I10 Essential (primary) hypertension; Z79.82 Long term (current) use of aspirin
CPT/HCPCS: 36415; 70450; 70544; 70551; 71045; 72170; 74018; 80053; 80307; 80320; 81003; 81015; 82607; 83605; 84439; 84443; 84484; 85025; 85610; 85730; 87086; 93005; 93880; 95819; 96374; 99283; A9270-GY; G0378; G0480; G8978-GP-CI; G8979-GP-CI; G8980-GP-CI; G8987-GO-CI; G8988-GO-CH; J2060

== ENCOUNTER 2018-06-15 21:36 | Emergency (ER) | payer MEDICARE, OTHER ==
[2018-06-15 22:05] VITALS: BP 148/85
--- NOTE | 2018-06-15 22:21 | UC ---
Head Injury HPI - HPI Summary HPI Summary: Pt presents to unaccompanied- pt with 87 yo male on coumadin for valve replacment. Pt states this evening struck head on cupboard. Pt sustained a laceration to top of head - struggled to control bleeidng. No LOC. No blood HEENTl. No other complaints. Pt states was little dizziy at time of injury - none since. Tdap UTD Last INR 4 weeks -s tates frequent adjustments to dose Pt drove self to Medications reviewed - History Of Current Complaint Chief Complaint: UCHeadInjury Stated Complaint: HEAD LACERATION Time Seen by Provider: 06/15/18 21:46 Hx Obtained From: Patient Onset/Duration: Sudden Onset Severity Currently: None Pain Intensity: 0 - Allergies/Home Medications Allergies/Adverse Reactions: Allergies Allergy/AdvReac Type Severity Reaction Status Date / Time No Known Allergies Allergy Verified 04/06/18 08:37 PMH/Surg Hx/FS Hx/Imm Hx Previously Healthy: Yes 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 - Surgical History Surgical History: Yes Surgery Procedure, Year, and Place: HEART VALVE REPLACEMENT 1994 - Family History Known Family History: Positive: Hypertension, Non-Contributory - Social History Occupation: Retired Lives: Alone Alcohol Use: Daily Substance Use Type: None Smoking Status (MU): Never Smoked Tobacco Household Exposure Type: Cigarettes - Immunization History Most Recent Influenza Vaccination: fall 2017 Most Recent Tetanus Shot: 12/01/15 Most Recent Pneumonia Vaccination: received in past Review of Systems All Other Systems Reviewed And Are Negative: Yes Constitutional: Positive: Negative Skin: Positive: Other - scalp laceration Eyes: Positive: Negative ENT: Positive: Negative Respiratory: Positive: Negative Physical Exam - Summary Physical Exam Summary: Vital Signs Reviewed: Yes A+Ox3, no distress, pleasant Eyes: Conjunctiva Clear, HAKAN. EOM intact and full ENT: Hearing grossly normal TM x 2 clear, - no hemotymp, mmoist, uvula midline , no exudate, no erythema Neck: Positive: Supple Respiratory: Positive: No respiratory distress, No accessory muscle use + CTA throughout no w/r Cardiovascular: RRR nl s1, s2 no m/r CBT <2 sec abd soft + BS nt/nd no guarding, no distension Musculoskeletal Exam: CASTILLO x 4 without difficulty Strength Intact, ROM Intact No pain c/t/l/s full AROM c spine Neurological: Positive: Alert, + sensation throughout Psychological: Positive: Normal Response To Family Skin: Positive: no rash, no ecchymosis Pt with laceration to posterior margin frontal area. bleeding controlled with pressure. no fluctuance Triage Information Reviewed: Yes Vital Signs: Initial Vital Signs Temp 99.0 F 06/15/18 21:57 Pulse 79 06/15/18 21:57 Resp 20 06/15/18 21:57 BP 148/85 06/15/18 21:57 Pulse Ox 97 06/15/18 21:57 Head Injury Course/Dx - Course Course Of Treatment: Pt it 87 yo male on coumadin - sustained scalp laceration- difficult controlling bleeding. Pt reports brief dizziness -none now Pt without physocal complaints, tdap UTD vitals reviewed pt with laceration to scalp - no active bleeding with pressure Pt on coumadin with head injury - lives alone recommend pt to ED for further eval - likely CT Pt unable to secure ride Pt will transfer by EMS Report called to ED- report to Charge, Cruzito Valencia BP elevated- h/o HTN - Differential Dx/Diagnosis Provider Diagnosis: Head injury, Scalp laceration, Anticoagulated Discharge - Sign-Out/Discharge Documenting (check all that apply): Patient Departure All imaging exams completed and their final reports reviewed: No Studies - Discharge Plan Condition: Stable Disposition: TRANS HIGHER LVL OF CARE FAC Referrals: Kaley Cool MD [Primary Care Provider] - - Billing Disposition and Condition Condition: STABLE Disposition: Trans Higher Lvl of Care Fac
== END 2018-06-15 22:39 | disposition short-term general hospital (02) ==
LOC: UCEAST 21:36
DX: S01.01XA Laceration without foreign body of scalp, initial encounter (principal); S09.90XA Unspecified injury of head, initial encounter; W22.8XXA Striking against or struck by other objects, initial encounter; Y92.9 Unspecified place or not applicable; R03.0 Elevated blood-pressure reading, without diagnosis of hypertension; Z79.01 Long term (current) use of anticoagulants; Z95.2 Presence of prosthetic heart valve
CPT/HCPCS: 99213; G0463

== ENCOUNTER 2018-06-15 22:52 | Emergency (ER) | payer MEDICARE, OTHER ==
--- NOTE | 2018-06-15 23:47 | ED ---
Laceration/Wound HPI - HPI Summary HPI Summary: The patient is a 87 year old male who is presenting to the [facility] with a chief complaint of laceration at the top of his head. The mechanism of the injury was described as an impact on the cabinet door that was open above the patient head. The patient was in the kitchen and was attempting to reach for a jar, but placed the jar back realizing he did not need it. He left the cabinet door open and did not realize this, thus later when he moved his head upward, he directly impacted the cabinet door. Patient has taken Coumadin after the impact. He is currently bleeding from the site of impact. Patient denies LOC, TRAYLOR, dizziness, double vision, blurry vision and nausea. The symptoms are aggravated by nothing. The symptoms are alleviated by nothing. The pain is rated to be a 0/10 in severity. - History of Current Complaint Stated Complaint: HEAD LAC PER EMS Time Seen by Provider: 06/15/18 23:21 Hx Obtained From: Patient Mechanism of Injury: Sharp/Blunt Trauma Onset/Duration: Sudden Onset Aggravating: Nothing Alleviating: Nothing Pain Intensity: 0 Pain Scale Used: 0-10 Numeric - Additional Pertinent History Primary Care Physician: [id number] - Allergy/Home Medications Allergies/Adverse Reactions: Allergies Allergy/AdvReac Type Severity Reaction Status Date / Time No Known Allergies Allergy Verified 04/06/18 08:37 PMH/Surg Hx/FS Hx/Imm Hx Endocrine/Hematology History: Reports: Hx Anticoagulant Therapy - for mechanical heart valve Denies: Hx Diabetes, Hx Systemic Lupus Erythematosus, Hx Thyroid Disease Cardiovascular History: Reports: Hx Atrial Fibrillation, Hx Hypercholesterolemia , Hx Hypertension - has had but recently went off meds, Other Cardiovascular Problems/Disorders - mechanical valve replacement Denies: Hx Congestive Heart Failure Respiratory History: Denies: Hx Asthma, Hx Chronic Obstructive Pulmonary Disease (COPD) GI History: Reports: Hx Gastroesophageal Reflux Disease Denies: Hx Ulcer History: Denies: Hx Dialysis, Hx Renal Disease Musculoskeletal History: Reports: Other Musculoskeletal History - right elbow fracture Denies: Hx Rheumatoid Arthritis Sensory History: Reports: Hx Cataracts, Hx Contacts or Glasses, Hx Hearing Problem Denies: Hx Hearing Aid Opthamlomology History: Reports: Hx Cataracts, Hx Contacts or Glasses Neurological History: Denies: Hx CVA, Hx Migraine Psychiatric History: Denies: Hx Anxiety, Hx Depression - Cancer History Hx Chemotherapy: No - Surgical History Surgery Procedure, Year, and Place: HEART VALVE REPLACEMENT 1994 - Immunization History Date of Tetanus Vaccine: UTD Date of Influenza Vaccine: UTD Infectious Disease History: No Infectious Disease History: Denies: Hx Clostridium Difficile, Hx Hepatitis, Hx Human Immunodeficiency Virus (HIV), Hx of Known/Suspected MRSA, Traveled Outside the [place] in Last 30 Days - Family History Known Family History: Positive: Hypertension, Other - Cancer - Social History Occupation: Retired Alcohol Use: Occasionally Substance Use Type: Reports: None Smoking Status (MU): Never Smoked Tobacco Review of Systems Constitutional: Negative Eyes: Other - Negative Double vision Negative: Blurred Vision ENT: Negative Cardiovascular: Negative Respiratory: Negative Negative: Nausea Genitourinary: Negative Musculoskeletal: Negative Skin: Other - Laceration at the top of the head Neurological: Other - Negative Dizziness Negative: Headache All Other Systems Reviewed And Are Negative: Yes Physical Exam - Summary Physical Exam Summary: VITAL SIGNS: Reviewed. GENERAL: Patient is a well-developed and nourished (MALE) who is lying comfortable in the stretcher. Patient is not in any acute respiratory distress. HEAD AND FACE: No signs of trauma. No ecchymosis, hematomas or skull depressions. No sinus tenderness. EYES: PERRLA, EOMI x 2, No injected conjunctiva, no nystagmus. EARS: Hearing grossly intact. Ear canals and tympanic membranes are within normal limits. MOUTH: Oropharynx within normal limits. NECK: Supple, trachea is midline, no adenopathy, no JVD, no carotid bruit, no c- spine tenderness, neck with full ROM. CHEST: Symmetric, no tenderness at palpation LUNGS: Clear to auscultation bilaterally. No wheezing or crackles. CVS: Regular rate and rhythm, S1 and S2 present, no murmurs or gallops appreciated. ABDOMEN: Soft, non-tender. No signs of distention. No rebound no guarding, and no masses palpated. Bowel sounds are normal. EXTREMITIES: FROM in all major joints, no edema, no cyanosis or clubbing. NEURO: Alert and oriented x 3. No acute neurological deficits. Speech is normal and follows commands. SKIN: 1.5 cm laceration over the Vertex Triage Information Reviewed: Yes Vital Signs On Initial Exam: Initial Vitals Temp Pulse Resp BP Pulse Ox 97.8 F 72 18 147/91 95 06/15/18 22:56 06/15/18 22:56 06/15/18 22:56 06/15/18 22:56 06/15/18 22:56 Vital Signs Reviewed: Yes Procedures - Laceration/Wound Repair 1 Location: head Length, Depth and Shape: Lac repair irrigated with clean normal saline. Patient stated no local anesthesia. Laceration repair using 4 staplea, good alignment and hemostasis Number of Sutures: 4 Layer Closure?: Yes Diagnostics - Vital Signs Vital Signs Temp Pulse Resp BP Pulse Ox 06/15/18 23:03 64 11 147/91 97 06/15/18 22:56 97.8 F 72 18 147/ 95 - Laboratory Lab Statement: Any lab studies that have been ordered have been reviewed, and results considered in the medical decision making process. - CT Brain CT CT Interpretation Completed By: Radiologist Summary of CT Findings: Brain CT reveals as per radiologist 1. Moderate volume loss and small vessel ischemic changes. 2. No acute intracranial abnormality. The ED Physician has reviewed this radiology report. Laceration Repair Course/Dx - Course Course Of Treatment: The patient is a 87 year old male who is presenting to the [facility] with a chief complaint of a 1.5 cm laceration at the top of his head. The laceration is s/p an impact with a cabinet door. The patient received a laceration repair in the [facility] that was clean (4 maricruz) with good allignment and hemostasis. No pain medication was requested at this time. The patients condition is stable. He also denies TRAYLOR, dizziness, double vision, blurry vision and nausea as per triage report. The patient received a CT Brain in the [facility]. Upon reviewing the CT Brain, the patient will be discharged home with a dx of Scalp laceration and Head injury. We discussed with the patient that the maricruz be removed after 2 weeks. Patient is agreeable with the plan. - Clinical Impression Provider Diagnoses: Scalp laceration, Head injury Discharge - Sign-Out/Discharge Documenting (check all that apply): Patient Departure - Discharge Home Patient Received Moderate/Deep Sedation with Procedure: No - Discharge Plan Condition: Stable Disposition: HOME Patient Education Materials: Laceration (ED), Head Injury (ED), Staple Care (ED ) Referrals: Kaley Cool MD [Primary Care Provider] - Additional Instructions: RETURN TO THE EMERGENCY DEPARTMENT FOR CHANGING OR WORSENING SYMPTOMS. FOLLOW UP WITH YOUR PRIMARY CARE PROVIDER WITHIN 2 TO 3 DAYS. REMOVE MARICRUZ IN 2 WEEKS. - Billing Disposition and Condition Condition: STABLE Disposition: Home - Attestation Statements Document Initiated by Pako: Yes Documenting Scribe: Silvestre Mendez Provider For Whom Scribe is Documenting (Include Credential): Dr. Yelena Snell Scribe Attestation: ISilvestre, scribed for Dr. Yelena Snell on 06/16/18 at 0655. Scribe Documentation Reviewed: Yes Provider Attestation: The documentation as recorded by the Silvestre ballard accurately reflects the service I personally performed and the decisions made by , Dr. Yelena Snell Status of Scribe Document: Viewed
[2018-06-15] MEDS ORDERED: Tetan/Diph/Pertus SYR(Tdap)* 0.5 ML SYR(BOOSTRIX) use SYR IM ONE (23:53)
[2018-06-16 00:09] LABS: Activated Partial Thrombo Time 41.1 seconds (26.0-36.3)
[2018-06-16 01:23] VITALS: BP 141/80
== END 2018-06-16 01:23 | disposition home or self-care (01) ==
LOC: ED 22:52
DX: S01.01XA Laceration without foreign body of scalp, initial encounter (principal); W22.09XA Striking against other stationary object, initial encounter; I10 Essential (primary) hypertension; I48.91 Unspecified atrial fibrillation; K21.9 Gastro-esophageal reflux disease without esophagitis; E78.00 Pure hypercholesterolemia, unspecified; Z79.01 Long term (current) use of anticoagulants; Z95.2 Presence of prosthetic heart valve
CPT/HCPCS: 12001; 36415; 70450; 85610; 85730; 90471; 90715; 99213; 99282; G0463

== ENCOUNTER 2018-08-04 05:34 | Inpatient (IN) | payer MEDICARE, OTHER ==
--- NOTE | 2018-08-04 05:52 | ED ---
Adult Trauma - HPI Summary HPI Summary: The patient is an 87 y/o M presenting to [facility] arriving by ambulance with a chief complaint of falling with associated head trauma at this morning. The patient states that he lives alone and fell possibly at 0000, but his neighbors didn't hear him yelling until 0400, when police were called and found him on the floor. When EMS arrived, the patient was bleeding from the mouth, and there was blood on his face and clothes. He is currently on blood thinners. States he broke his left elbow two years ago. - History of Current Complaint Stated Complaint: "FALL" PER EMS Hx Obtained From: Patient, EMS Mechanism of Injury: Fall Loss of Consciousness: unsure Onset/Duration: Started Hours Ago, Still Present Onset of Pain: Post Accident Onset Severity: Severe Current Severity: Severe Pain Scale Used: 0-10 Numeric Location: Head Aggravating Factor(s): Nothing Alleviating Factor(s): Nothing Associated Signs & Symptoms: Positive: Other: - active bleeding from mouth - Additional Pertinent History Primary Care Physician: PATRICIA - Allergy/Home Medications Allergies/Adverse Reactions: Allergies Allergy/AdvReac Type Severity Reaction Status Date / Time No Known Allergies Allergy Verified 04/06/18 08:37 PMH/Surg Hx/FS Hx/Imm Hx Endocrine/Hematology History: Reports: Hx Anticoagulant Therapy - for mechanical heart valve Denies: Hx Diabetes, Hx Systemic Lupus Erythematosus, Hx Thyroid Disease Cardiovascular History: Reports: Hx Atrial Fibrillation, Hx Hypercholesterolemia , Hx Hypertension - has had but recently went off meds, Other Cardiovascular Problems/Disorders - mechanical valve replacement Denies: Hx Congestive Heart Failure Respiratory History: Denies: Hx Asthma, Hx Chronic Obstructive Pulmonary Disease (COPD) GI History: Reports: Hx Gastroesophageal Reflux Disease Denies: Hx Ulcer History: Denies: Hx Dialysis, Hx Renal Disease Musculoskeletal History: Reports: Other Musculoskeletal History - right elbow fracture Denies: Hx Rheumatoid Arthritis Sensory History: Reports: Hx Cataracts, Hx Contacts or Glasses, Hx Hearing Problem Denies: Hx Hearing Aid Opthamlomology History: Reports: Hx Cataracts, Hx Contacts or Glasses Neurological History: Denies: Hx CVA, Hx Migraine Psychiatric History: Denies: Hx Anxiety, Hx Depression - Cancer History Hx Chemotherapy: No - Surgical History Surgery Procedure, Year, and Place: HEART VALVE REPLACEMENT 1994 - Immunization History Date of Tetanus Vaccine: UTD Date of Influenza Vaccine: UTD Infectious Disease History: Denies: Hx Clostridium Difficile, Hx Hepatitis, Hx Human Immunodeficiency Virus (HIV), Hx of Known/Suspected MRSA - Family History Known Family History: Positive: Hypertension, Other - Cancer - Social History Alcohol Use: Occasionally Substance Use Type: Reports: None Hx Tobacco Use: No Smoking Status (MU): Never Smoked Tobacco Review of Systems Positive: Other - active bleeding from mouth Positive: Other - blood on body Neurological: Other - hit head on sink All Other Systems Reviewed And Are Negative: Yes Physical Exam - Summary Physical Exam Summary: Appearance: Well appearing, no pain distress Skin: warm, dry, reflects adequate perfusion, abrasions of elbows Head/face: bleeding from mouth Eyes: EOMI, HAKAN ENT: pooling of blood in pharynx, erythema in pharynx Neck: supple, non-tender Respiratory: CTA, breath sounds present Cardiovascular: tachycardia regularly irregular, pulses symmetrical Abdomen: non-tender, soft Musculoskeletal: normal, strength/ROM intact Neuro: normal, sensory motor intact, A&Ox3 Triage Information Reviewed: Yes Vital Signs Reviewed: Yes - [place] Coma Scale Best Eye Response: 4 - Spontaneous Best Motor Response: 6 - Obeys Commands Best Verbal Response: 5 - Oriented Coma Scale Total: 15 Adult Trauma Course/Dx - Course Assessment/Plan: The patient is an 87 y/o M presenting to [facility] arriving by ambulance with a chief complaint of falling with associated head trauma at this morning including bleeding from tongue. Upon physical exam, the patient exhibits tachycardia, regularly irregular, pooling of blood in pharynx, erythematous pharynx, and abrasions of elbows. In the ED course, the patient was administered Ns, Propofol (for intubation performed by respiratory), Ativan , and Iodixanol (for CT). He is diagnosed with head trauma, bleeding from mouth. The patient is a sign-out to Dr. Edwin Reddy MD, from Dr. Abelino Richardson MD, pending labs and imaging. - Diagnoses Provider Diagnoses: Head trauma, Bleeding from mouth - Critical Care Time Critical Care Time: 30-74 min Discharge - Sign-Out/Discharge Documenting (check all that apply): Sign-Out Patient Signing out patient TO: Edwin Reddy - Patient is a sign-out to Dr. Reddy pending labs and imaging. Patient Received Moderate/Deep Sedation with Procedure: Yes - Discharge Plan Referrals: Crepet,Akley, MD [Primary Care Provider] - - Attestation Statements Document Initiated by Scribe: Yes Documenting Scribe: Nehal Blackwell Provider For Whom Scribe is Documenting (Include Credential): Dr. Abelino Richardson MD Scribe Attestation: Nehal Galvan, scribed for Dr. Abelino Richardson MD on 08/04/18 at 0723. Status of Scribe Document: Viewed
[2018-08-04] MEDS ORDERED: NS 0.9% 1000 ML** 1,000 ML IV SCH (06:00)
[2018-08-04] MEDS ORDERED: Succinylcholine* 20 MG/ML 10 ML VIAL ONE (06:07)
[2018-08-04] MEDS ORDERED: Etomidate* 2 MG/ML 20 ML VIAL (40 MG) ONE (06:07)
[2018-08-04] MEDS ORDERED: Rocuronium* 10 MG/ML VIAL ONE (06:07)
[2018-08-04] MEDS ORDERED: LORazepam INJ* 2 MG/ML 1 ML VIAL IV PUSH ONE (06:20)
[2018-08-04] MEDS ORDERED: Lorazepam PYXIS KEY PRN (06:20)
[2018-08-04] MEDS ORDERED: Iodixanol* (CONTRAST) 320 MG/ML 100 ML SDV IV ONE (06:21)
[2018-08-04] MEDS ORDERED: Propofol* 100 ML ONE (06:21)
[2018-08-04] MEDS ORDERED: Propofol* 100 ML IV SCH (07:00)
--- NOTE | 2018-08-04 07:26 | ED ---
Progress - Progress Note Progress Note: This pt was signed out by Dr. Richardson, pending disposition, awaiting imaging and labs. Pt is an 87 y/o male presenting to [facility] via EMS after falling and being found leaning over the sink. Pt's neighbor heard the patient screaming and they called the police. Police found the pt leaning over the sink but pt was conscious and bleeding from the mouth. Police are sure that the pt was in the bathroom since 00:00 but was brought to the ED just a couple of hours ago around 05:30 today. Patient is on anticoagulation, Coumadin. Pt has been intubated. Physical Exam: VITAL SIGNS: Reviewed. GENERAL: Patient is a well-developed and nourished male. HEAD AND FACE: Patient is bleeding through his mouth. Patient is intubated. Unable to visualize area of bleeding. MOUTH: Patient is bleeding through his mouth. Patient is intubated. Unable to visualize area of bleeding. NG tube with suctions. LUNGS: Decreased breath sounds bilaterally with crackles in bases of lungs. CVS: Normal sinus rhythm, no murmur ABDOMEN: Soft. Decreased bowel sounds. Right inguinal hernia. Pemberton catheter in place. EXTREMITIES: FROM in all major joints, no edema, no cyanosis or clubbing. NEURO: Patient is intubated. Brain CT, as read by radiologist IMPRESSION: No intracranial hemorrhage. Cerebral atrophy. Hypoplastic right maxillary sinus. Complete opacification of the right maxillary sinus. Maxillofacial CT, as read by radiologist IMPRESSION: 1. Old blowout fracture of the floor of the right orbit. 2. Swollen turbinates with compromise of the airway. 3. Bilateral nasal bone fracture deformities. 4. Cerebral atrophy. 5. Hypoplastic right maxillary sinus. 6. Complete opacification of the right maxillary sinus. 7. Mild chronic left frontal sinusitis. 8. Occlusion of the right ostiomeatal complex. Chest/Abdomen/Pelvis CT, as read by radiologist IMPRESSION: No acute fractures. No pneumothorax or pulmonary contusions. Interval development of extensive mucoid impaction at the right base with right lung volume loss and [id number] mediastinal shift. No acute fractures or evidence of solid organ injury. Cervical spine CT, as read by radiologist IMPRESSION: 1. Degenerative disc disease of the cervical spine without acute fracture or dislocation. 2. The visualized portions of the endotracheal tube and orogastric tube indicate appropriate placement. Chest XR, as read by radiologist IMPRESSION: The endotracheal tube is above the clavicular heads, measuring at least 10 cm above the carolyn. Please correlate to objective sings of adequate aeration. EKG at 07:09 Rate: Normal at 83 bpm Rhythm: Sinus Rhythm No ST elevations Dr. Reddy has reviewed these reports. Re-Evaluation - Re-Evaluation First Eval Re-Evaluation Time: 07:19 Comment: Examined the pt and performed physical exam. Second Eval Re-Evaluation Time: 07:33 Comment: Performed a FAST exam and there are no signs of blood. Third Eval Re-Evaluation Time: 08:48 Comment: Dr. Damico, game bird farmer, in the ED to see the patient. Fourth Eval Re-Evaluation Time: 09:33 Comment: Rhino rockets were placed by Dr. Reddy. Course/Dx - Course Course Of Treatment: This patient was signed out by Dr. Richardson. He reports that the patient came in this morning after he was found in the bathroom on the sink with a pool of blood. The patient was screaming and unable to give any history. As per Dr. Richardson the patient was bleeding from somewhere in the neck but he couldnt visualize the bleeding, therefore he decided to intubate the patient and he ordered multiple scans. He requested to review the scans and transfer the patient to a trauma facility. Patient patients past medical history significant for: 1- Dyslipidemia. 2- Esophageal stricture. 3- Atrial fibrillation on Coumadin. 4- hypertension. 5- Mechanical heart valve. 6- Sepsis. EKG is a normal sinus rhythm at [address] elevations. Head CT IMPRESSION: No intracranial hemorrhage. Cerebral atrophy. Hypoplastic right maxillary sinus. Complete opacification of the right maxillary sinus. Maxillofacial CT IMPRESSION: 1. Old blowout fracture of the floor of the right orbit. 2. Swollen turbinates with compromise of the airway. 3. Bilateral nasal bone fracture deformities. 4. Cerebral atrophy. 5. Hypoplastic right maxillary sinus. 6. Complete opacification of the right maxillary sinus. 7. Mild chronic left frontal sinusitis. 8. Occlusion of the right ostiomeatal complex. Chest CT IMPRESSION: No acute fractures. No pneumothorax or pulmonary contusions. Interval development of extensive mucoid impaction at the right base with right. lung volume loss and [id number] mediastinal shift. Abdomen and pelvic CT IMPRESSION: No acute fractures or evidence of solid organ injury. C spine IMPRESSION: 1. DEGENERATIVE DISC DISEASE OF THE CERVICAL SPINE WITHOUT ACUTE FRACTURE OR DISLOCATION. 2. THE VISUALIZED PORTIONS OF THE ENDOTRACHEAL TUBE AND OROGASTRIC TUBE INDICATE. APPROPRIATE PLACEMENT. . In the ED course I examined the patient. The patient was given IV fluids, the patient was given fentanyl for his agitation. The patient is already getting propofol. Test results without any significant abnormality except for WBCs of 13.4, hemoglobin 13.1, hematocrit 40, INR is 2.66 , potassium is 3.4, glucose is 121, calcium is 8.3, total bili is 1.2, albumin 3.1. Urinalysis with trace ketones and 2+ blood. There is a question of aspiration on this patient therefore he was placed on Zosyn for protection of pneumonitis. I discussed the case with Dr. West from ENT who will consult for this patient. He requested to place a Rhino Rocket in each nostril. I also discussed the case with Dr. Damico from the intensive care unit who came and assessed the patient. After his assessment he accepted the patient for admission. - Diagnoses Provider Diagnoses: Bleeding from mouth, Epistaxis, Endotracheally intubated - Provider Notifications Discussed Care Of Patient With: Kiko Davis Time Discussed With Above Provider: 07:49 Instructed by Provider To: Other - Dr. Davis, radiologist, reports he doesn't see a pneumothorax or hemothorax in the cat scan. [08:45] Discussed with Dr. West, ENT, who recommends rhino rocket in each nostril. - Critical Care Time Critical Care Time: 30-74 min Discharge - Sign-Out/Discharge Documenting (check all that apply): Patient Departure - Admit to ICU, Receiving Sign-Out Receiving patient FROM: Abelino Richardson All imaging exams completed and their final reports reviewed: Yes Patient Received Moderate/Deep Sedation with Procedure: No - Discharge Plan Condition: Stable Disposition: ADMITTED TO [facility] - Billing Disposition and Condition Condition: STABLE Disposition: Admitted to [facility] - Attestation Statements Document Initiated by Scribe: Yes Documenting Scribe: Cherelle Buckner Provider For Whom Scribe is Documenting (Include Credential): Edwin Reddy MD Scribe Attestation: Cherelle Galvan scribed for Edwin Reddy MD on 08/05/18 at 1822. Scribe Documentation Reviewed: Yes Provider Attestation: The documentation as recorded by the scribe, Cherelle Buckner accurately reflects the service I personally performed and the decisions made by me, Edwin Reddy MD Status of Scribe Document: Viewed
[2018-08-04 07:29] LABS: ABS Lymphocytes 0.8 10^3/ul (1.0-4.8); ABS Monocytes 1.5 10^3/ul (0-0.8); Eosinophil % 0.2 %; Hematocrit 40 % (42-52); Hemoglobin 13.1 g/dL (14.0-18.0); Lymphocyte % 5.7 %; Mean Corpuscular HGB Conc 33 g/dL (31-36); Mean Corpuscular Hemoglobin 31 pg (27-31); Mean Corpuscular Volume 93 fL (80-94); Mean Platelet Volume 8.7 fL (7.4-10.4); Platelet Count 173 10^3/uL (150-450); Red Blood Count 4.29 10^6 /uL (4.18-5.48); Red Cell Distribution Width 14 % (10.5-15); White Blood Count 13.4 10^3/uL (3.5-10.8)
[2018-08-04 07:44] LABS: ALT 18 U/L (7-52); AST 36 U/L (13-39); Albumin 3.1 g/dL (3.2-5.2); Albumin/Globulin Ratio 1.2 (1-3); Alkaline Phosphatase 76 U/L (34-104); Anion Gap 4 mmol/L (2-11); BUN/Creatinine Ratio 20.3 (8-20); Blood Urea Nitrogen 16 mg/dL (6-24); CO2 Carbon Dioxide 22 mmol/L (22-32); Calcium 8.3 mg/dL (8.6-10.3); Chloride 111 mmol/L (101-111); EGFR Non-African American 92.6 (>60); Globulin 2.5 g/dL (2-4); Glucose 121 mg/dL (70-100); Potassium 3.4 mmol/L (3.5-5.0); Sodium 137 mmol/L (135-145); Total Protein 5.6 g/dL (6.4-8.9)
[2018-08-04 07:47] LABS: Troponin I 0.03 ng/mL (<0.04)
[2018-08-04 07:53] LABS: Urine Appearance Clear; Urine Bacteria Absent (Absent); Urine Bilirubin Negative (Negative); Urine Blood 3+ (Negative); Urine Color Yellow; Urine Glucose Negative (Negative); Urine Ketones Trace (Negative); Urine Nitrite Negative (Negative); Urine Protein 1+(30 mg/dL) (Negative); Urine Red Blood Cell Trace(0-2/hpf) (Absent); Urine Specific Gravity 1.026 (1.010-1.030); Urine Urobilinogen Negative (Negative); Urine White Blood Cell Trace(0-5/hpf) (Absent)
[2018-08-04] MEDS ORDERED: fentaNYL* 50 MCG/ML 2 ML VIAL (100 MCG VIAL) IV SLOW PU ONE (08:01)
[2018-08-04 08:06] LABS: INR 2.66 (0.82-1.09)
[2018-08-04] MEDS ORDERED: Piperacillin/Tazobac ADVAN(*) 3.375 GM in NS 0.9% 100 ML* 100 ML IVPB ONE (08:26)
[2018-08-04 08:34] LABS: Alcohol < 10 mg/dL (<10)
[2018-08-04] MEDS ORDERED: Dexmedetomidine* 200 MCG/2 ML 2 ML VIAL ONE (10:04)
--- NOTE | 2018-08-04 12:13 | HP ---
History of Present Illness - History of Present Illness Reason for Visit: bleeding History of Present Illness: 87 M with hx of valve repair on AC brought in for bleeding in OP area. In the ED , 2/2 copious bleeding patient emergently intubated. H/H remains stable in the ED. INR elevated. Platelets wnl. No known bleeding disorders. Imaging scans showed old orbital Fx's. INR was not reversed. Patient brought to the ICU. Required sedation. However, with Precedex became bradycardic and consequently it was held. On high Propofol (>40) became hypotensive. Patient evaluated by ENT at the bedside. Tongue sutured at several areas. OP area appeared clear of active bleeding. After ENT evaluated patient, patient was subsequently extubated without issues. Had tolerated PST several hours and had low RSBI with good cough and gag. Minimal secretions. 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 - Past Surgical History Past Surgical History: CABG - Past Family History Family History: None Review of Systems - Medications/Allergies Allergies/Adverse Reactions: Allergies Allergy/AdvReac Type Severity Reaction Status Date / Time No Known Allergies Allergy Verified 04/06/18 08:37 Medications: Current Medications Acetaminophen (Tylenol Tab*) 650 mg PO Q4H PRN PRN Reason: FEVER Sodium Chloride (Ns 0.9% 1000 Ml) 1,000 mls @ 100 mls/hr IV PER RATE ANIKA Propofol (Diprivan*) 100 mls @ 2.517 mls/hr IV .(Initial Rate) [facility]; Protocol Last Admin: 08/04/18 07:11 Dose: 9.6 mls/hr Miscellaneous (Ativan Pyxis Hinton) 1 ea N/A .ATIVAN IV HINTON PRN PRN Reason: PYXIS HINTON Exam - Exam Vital Signs: Vital Signs (72 hours) 08/04/18 08/04/18 08/04/18 05:41 05:44 05:59 Temperature 96 F Pulse Rate 84 89 95 Respiratory 22 Rate Blood Pressure 158/89 127/85 (mmHg) O2 Sat by Pulse 95 95 95 Oximetry 08/04/18 08/04/18 08/04/18 06:01 06:08 06:13 Temperature Pulse Rate 83 82 74 Respiratory 22 20 14 Rate Blood Pressure 195/113 217/108 (mmHg) O2 Sat by Pulse 93 84 100 Oximetry 08/04/18 08/04/18 08/04/18 06:18 06:19 06:23 Temperature Pulse Rate 83 87 100 Respiratory 16 19 13 Rate Blood Pressure 241/114 175/117 210/133 (mmHg) O2 Sat by Pulse 100 100 100 Oximetry 08/04/18 08/04/18 08/04/18 06:28 06:33 07:12 Temperature Pulse Rate 88 91 85 Respiratory 28 Rate Blood Pressure 133/92 159/90 (mmHg) O2 Sat by Pulse 100 100 100 Oximetry 08/04/18 08/04/18 08/04/18 07:13 07:22 07:27 Temperature 95.5 F Pulse Rate 84 93 81 Respiratory 22 25 22 Rate Blood Pressure 165/102 181/107 149/86 (mmHg) O2 Sat by Pulse 100 100 100 Oximetry 08/04/18 08/04/18 08/04/18 07:32 07:37 07:41 Temperature 95.9 F 96.1 F 96.3 F Pulse Rate 85 80 80 Respiratory 18 16 20 Rate Blood Pressure 149/88 151/85 137/83 (mmHg) O2 Sat by Pulse 99 99 98 Oximetry 08/04/18 08/04/18 08/04/18 07:48 07:52 07:57 Temperature 96.3 F 96.3 F 96.3 F Pulse Rate 81 78 82 Respiratory 19 19 19 Rate Blood Pressure 154/90 153/90 160/98 (mmHg) O2 Sat by Pulse 99 99 97 Oximetry 08/04/18 08/04/18 08/04/18 08:01 08:02 08:06 Temperature 96.3 F 96.3 F Pulse Rate 82 81 Respiratory 21 23 23 Rate Blood Pressure 156/108 (mmHg) O2 Sat by Pulse 99 99 Oximetry 08/04/18 08/04/18 08/04/18 08:07 08:12 08:16 Temperature 96.3 F 96.4 F 96.4 F Pulse Rate 74 75 77 Respiratory 12 10 14 Rate Blood Pressure 135/78 101/66 97/62 (mmHg) O2 Sat by Pulse 98 96 95 Oximetry 08/04/18 08/04/18 08/04/18 08:19 08:22 08:24 Temperature 96.4 F 96.4 F 96.4 F Pulse Rate 71 74 72 Respiratory 14 11 13 Rate Blood Pressure 101/66 90/63 96/61 (mmHg) O2 Sat by Pulse 95 95 95 Oximetry 08/04/18 08/04/18 08/04/18 08:27 08:33 08:37 Temperature 96.4 F 96.4 F 96.4 F Pulse Rate 76 75 70 Respiratory 19 18 21 Rate Blood Pressure 106/77 140/92 135/75 (mmHg) O2 Sat by Pulse 96 100 100 Oximetry 08/04/18 08/04/18 08/04/18 08:41 08:42 08:47 Temperature 96.4 F 96.4 F 96.4 F Pulse Rate 70 67 65 Respiratory 18 17 16 Rate Blood Pressure 120/76 122/64 121/73 (mmHg) O2 Sat by Pulse 100 100 100 Oximetry 08/04/18 08/04/18 08/04/18 08:57 09:00 09:02 Temperature 96.4 F 96.4 F 96.4 F Pulse Rate 65 65 65 Respiratory 17 12 14 Rate Blood Pressure 117/66 110/68 (mmHg) O2 Sat by Pulse 100 100 100 Oximetry 08/04/18 08/04/18 08/04/18 09:07 09:12 09:17 Temperature 96.4 F 96.4 F 96.4 F Pulse Rate 66 64 64 Respiratory 12 14 15 Rate Blood Pressure 108/58 117/65 107/69 (mmHg) O2 Sat by Pulse 100 100 100 Oximetry 08/04/18 08/04/18 08/04/18 09:22 09:28 09:33 Temperature 96.6 F 96.6 F 96.6 F Pulse Rate 63 67 66 Respiratory 16 22 12 Rate Blood Pressure 122/63 109/64 111/62 (mmHg) O2 Sat by Pulse 100 100 100 Oximetry 08/04/18 08/04/18 08/04/18 09:38 09:42 10:00 Temperature 96.6 F 96.6 F 97.3 F Pulse Rate 65 64 68 Respiratory 11 13 20 Rate Blood Pressure 134/67 118/69 138/88 (mmHg) O2 Sat by Pulse 100 100 100 Oximetry 08/04/18 10:17 Temperature 96.6 F Pulse Rate 64 Respiratory 14 Rate Blood Pressure 118/69 (mmHg) O2 Sat by Pulse 100 Oximetry General: Other - intubated. sedated HEENT: Other Lungs: Clear to auscultation Cardiovascular: Regular rate Abdomen: Normal bowel sounds, Soft, No tenderness Extremities: No clubbing Neurological: Other - sedated. not following Assessment/Plan - Assessment/Plan Assessment: 87 M with hx mechanical valve on AC p/w OP bleeding. Intubated in the ED for airway protection. Was AO times 3 prior to intubation. No hx of bleeding known but hx of falls. INR 2.6. ENT sutured several areas on his tongue. No active bleeding seen though by ENT. Patient extubated in the ICU. Oxygenating well. Imaging studies primarily negative. H/H stable. Plan continue to monitor H/H Hold AC tonight though will restart tomorrow if no further bleeding. No need for AC reversal now as risks outweigh benefits. continue to monitor in the ICU tonight Patient critically ill. CCM time 45 minutes Plan - Plan Treatment Plan: Name: GRISEL MILLER Birthdate: 1930 [id number] Medications: Current Medications Acetaminophen (Tylenol Tab*) 650 mg PO Q4H PRN PRN Reason: FEVER Sodium Chloride (Ns 0.9% 1000 Ml) 1,000 mls @ 100 mls/hr IV PER RATE ANIKA Propofol (Diprivan*) 100 mls @ 2.517 mls/hr IV .(Initial Rate) [facility]; Protocol Last Admin: 08/04/18 07:11 Dose: 9.6 mls/hr Miscellaneous (Ativan Pyxis Hinton) 1 ea N/A .ATIVAN IV HINTON PRN PRN Reason: PYXIS HINTON - Discharge Plan Additional Comments: Assessment and Plan 87 M on AC for mechanical valve and BECKY p/w OP bleeding. INR
--- NOTE | 2018-08-04 12:42 | OP ---
DATE OF OPERATION: 08/04/18 - ROOM #412 DATE OF : 28 SURGEON: Richie West MD PRE-OP DIAGNOSIS: Oropharyngeal hemorrhage. POST-OP DIAGNOSIS: Oropharyngeal hemorrhage. OPERATIVE PROCEDURE: Control of oropharyngeal hemorrhage. BRIEF HISTORY: This pleasant 87-year-old gentleman, intubated, had a fall and subsequent laceration of the oropharynx. He unfortunately had a quite a bit of bleeding because he was on Coumadin. DESCRIPTION OF PROCEDURE: At the bedside in the ICU, patient intubated, was relatively stable for procedure. Tongue, mandible, and soft palate was retracted. Obvious site of bleeding with laceration on the tongue. This was carefully suctioned and cleaned. Multiple sutures of 4-0 Vicryl were applied to control the oropharynx. The patient was tolerated the procedure, then turned over care to the ICU physician, who proceeded to extubate the patient. The bleeding seemed to have been controlled. The patient then transferred back to the care of the ICU physician. Instrument and sponge counts were correct. Blood loss was minimal. [id number]/[facility] #: [id number] [facility]
[2018-08-04 14:10] LABS: Magnesium 1.7 mg/dL (1.9-2.7)
[2018-08-04 14:55] LABS: Hematocrit 30 % (42-52); Hemoglobin 10.1 g/dL (14.0-18.0); Mean Corpuscular HGB Conc 34 g/dL (31-36); Mean Corpuscular Hemoglobin 31 pg (27-31); Mean Corpuscular Volume 93 fL (80-94); Mean Platelet Volume 8.2 fL (7.4-10.4); Platelet Count 100 10^3/uL (150-450); Red Blood Count 3.23 10^6 /uL (4.18-5.48); Red Cell Distribution Width 14 % (10.5-15)
[2018-08-04 15:31] LABS: ABS Lymphocytes 0.5 10^3/ul (1.0-4.8); ABS Monocytes 1.1 10^3/ul (0-0.8); ABS Neutrophils 7.4 10^3/ul (1.5-7.7); Eosinophil % 0.3 %
[2018-08-05 07:18] LABS: INR 2.87 (0.82-1.09)
--- NOTE | 2018-08-05 09:48 | PN ---
Date of Service: 08/05/18 Critical Care Services: no further bleeding overnight slight dip in H/H overnight INR remains 2-3 range despite being off past 24 hours oxygenating well Vital Signs: Temp Pulse Resp BP SpO2 FiO2 98.9 F 66 15 121/62 96 50 08/05/18 08:00 08/05/18 06:00 08/05/18 06:00 08/05/18 06:00 08/05/18 06:00 08/04 13:24 Physical Exam: Gen: AO times 3 HEENT: Slurring of speech 2/2 tongue swelling. left orbital hematoma Lungs: CTA B/L Cardiac: RRR Abdomen: + BS's. Soft, NTP. No rebound or guading Extremities: No ASH Neuro: moving all extremities Fluid Balance (Past 24 Hours): I= O= Net Intake & Output 08/03/18 08/04/18 08/05/18 08/06/18 06:59 06:59 06:59 06:59 Intake Total 13 Output Total 1570 Balance -1557 Weight 185 lb 166 lb 3.657 oz Intake: Medicated IV 13 CC - Dexmedetomidine/ 13 Precedex Output: Pemberton 1525 Straight Cath 45 ADLs: Meal Record Start: 08/04/18 09: 14 Freq: 09,13,18 Status: Active Protocol: Created 08/04/18 09:14 System (Rec: 08/04/18 09:14 System ICU-C11) Document 08/04/18 13:00 [id number] (Rec: 08/04/18 16:12 [id number] ICU-C06) Document 08/04/18 18:00 [id number] (Rec: 08/04/18 19:35 [id number] ICU-C56) Intake and Output Start: 08/04/18 06: 09 Freq: Status: Active Protocol: Created 08/04/18 06:09 System (Rec: 08/04/18 06:09 System [id number]) Intake and Output Start: 08/04/18 09: 14 Freq: Q1HR Status: Active Protocol: Created 08/04/18 09:14 System (Rec: 08/04/18 09:14 System ICU-C11) Document 08/04/18 10:00 [id number] (Rec: 08/04/18 10:34 [id number] ICU-M25) Document 08/04/18 11:00 [id number] (Rec: 08/04/18 13:39 [id number] ICU-C06) Document 08/04/18 12:00 [id number] (Rec: 08/04/18 13:39 [id number] ICU-C06) Document 08/04/18 13:00 [id number] (Rec: 08/04/18 14:27 [id number] ICU-C06) Document 08/04/18 14:00 [id number] (Rec: 08/04/18 16:14 [id number] ICU-C06) Document 08/04/18 16:00 [id number] (Rec: 08/04/18 16:14 [id number] ICU-C06) Document 08/04/18 17:00 [id number] (Rec: 08/04/18 19:29 [id number] ICU-C56) Document 08/04/18 18:00 [id number] (Rec: 08/04/18 19:29 [id number] ICU-C56) Document 08/04/18 19:00 [id number] (Rec: 08/04/18 20:13 [id number] ICU-M25) Document 08/04/18 20:00 [id number] (Rec: 08/04/18 20:18 [id number] ICU-M25) Document 08/04/18 21:00 [id number] (Rec: 08/04/18 21:08 [id number] ICU-C07) Document 08/04/18 21:55 [id number] (Rec: 08/04/18 21:57 [id number] ICU-C07) Document 08/04/18 22:58 [id number] (Rec: 08/04/18 23:00 [id number] ICU-C07) Document 08/05/18 00:00 [id number] (Rec: 08/05/18 00:39 [id number] ICU-C07) Document 08/05/18 01:00 [id number] (Rec: 08/05/18 02:31 [id number] ICU-C07) Document 08/05/18 02:00 [id number] (Rec: 08/05/18 02:32 [id number] ICU-C07) Document 08/05/18 03:00 [id number] (Rec: 08/05/18 03:39 [id number] ICU-C07) Document 08/05/18 04:00 [id number] (Rec: 08/05/18 04:27 [id number] ICU-M25) Document 08/05/18 05:00 [id number] (Rec: 08/05/18 05:44 [id number] ICU-C07) Document 08/05/18 06:00 [id number] (Rec: 08/05/18 06:17 [id number] ICU-C07) Labs: Laboratory Results - last 24 hr 08/04/18 08/04/18 08/04/18 07:14 07:14 14:40 WBC 9.0 RBC 3.23 L Hgb 10.1 L Hct 30 L MCV 93 MCH 31 MCHC 34 RDW 14 Plt Count 100 L MPV 8.2 Neut % (Auto) 81.6 Lymph % (Auto) 6.0 Morehouse % (Auto) 11.7 Eos % (Auto) 0.3 Baso % (Auto) 0.4 Absolute Neuts (auto) 7.4 Absolute Lymphs (auto) 0.5 L Absolute Monos (auto) 1.1 H Absolute Eos (auto) 0.0 Absolute Basos (auto) 0.0 Absolute Nucleated RBC 0.0 Nucleated RBC % 0.0 INR (Anticoag Therapy) Patient Temperature ABG pH ABG pH (Temp Correct) ABG pCO2 ABG pCO2 (Temp Corrct ABG pO2 ABG pO2 (Temp Correct ABG HCO3 ABG O2 Saturation ABG Base Excess Respiration Rate O2 Delivery Device Ventilator Type Vent Mode FiO2 Inspiratory Time PEEP Pressure Support Pressure Control EPAP IPAP BiPAP Sodium 137 Potassium 3.4 L Chloride 111 Carbon Dioxide 22 Anion Gap 4 BUN 16 Creatinine 0.79 Est GFR ( Amer) 112.0 Est GFR (Non-Af Amer) 92.6 BUN/Creatinine Ratio 20.3 H Glucose 121 H Calcium 8.3 L Magnesium 1.7 L Total Bilirubin 1.20 H AST 36 ALT 18 Alkaline Phosphatase 76 Troponin I 0.03 Total Protein 5.6 L Albumin 3.1 L Globulin 2.5 Albumin/Globulin Ratio 1.2 Serum Alcohol < 10 Blood Type A Positive Antibody Screen Negative 08/05/18 08/05/18 08/05/18 04:35 06:00 06:43 WBC RBC Hgb Hct MCV MCH MCHC RDW Plt Count MPV Neut % (Auto) Lymph % (Auto) Morehouse % (Auto) Eos % (Auto) Baso % (Auto) Absolute Neuts (auto) Absolute Lymphs (auto) Absolute Monos (auto) Absolute Eos (auto) Absolute Basos (auto) Absolute Nucleated RBC Nucleated RBC % INR (Anticoag Therapy) 2.87 H Patient Temperature Not Reportable ABG pH 7.37 ABG pH (Temp Correct) Not Reportable ABG pCO2 36 ABG pCO2 (Temp Corrct Not Reportable ABG pO2 84 ABG pO2 (Temp Correct Not Reportable ABG HCO3 21.8 ABG O2 Saturation 98.4 H ABG Base Excess -3.9 L Respiration Rate Not Reportable O2 Delivery Device nasal cannula Ventilator Type Not Reportable Vent Mode Not Reportable FiO2 32 Inspiratory Time Not Reportable PEEP Not Reportable Pressure Support Not Reportable Pressure Control Not Reportable EPAP Not Reportable IPAP Not Reportable BiPAP Not Reportable Sodium Potassium Chloride Carbon Dioxide Anion Gap BUN Creatinine Est GFR ( Amer) Est GFR (Non-Af Amer) BUN/Creatinine Ratio Glucose Calcium Magnesium 1.7 L Total Bilirubin AST ALT Alkaline Phosphatase Troponin I Total Protein Albumin Globulin Albumin/Globulin Ratio Serum Alcohol Blood Type Antibody Screen Impression: 87 M on NOAC p/w bleeing oral-pharyngeal area. No nose bleeding. Tongue sutured by ENT. Had been intubated for airway protection but several hours later extubated. Slight drop in H/H overnight but no overt bleeding noted. Plan: Resume NOAC tomorrow Transfer to medicine service Continue to monitor H/H Will need Speech and swallow evaluation. Till eval will need to be NPO Fall precautions. PT/OT evaluation. Lives alone. May need services? Critical Care Time: 45
[2018-08-05 10:58] LABS: ABS Eosinophils 0.1 10^3/ul (0-0.6); ABS Lymphocytes 0.8 10^3/ul (1.0-4.8); ABS Monocytes 1.4 10^3/ul (0-0.8); ABS Neutrophils 7.2 10^3/ul (1.5-7.7); Eosinophil % 0.7 %; Hematocrit 33 % (42-52); Hemoglobin 10.8 g/dL (14.0-18.0); Lymphocyte % 8.1 %; Mean Corpuscular HGB Conc 33 g/dL (31-36); Mean Corpuscular Hemoglobin 31 pg (27-31); Mean Corpuscular Volume 94 fL (80-94); Mean Platelet Volume 8.7 fL (7.4-10.4); Platelet Count 128 10^3/uL (150-450); Red Blood Count 3.53 10^6 /uL (4.18-5.48); Red Cell Distribution Width 14 % (10.5-15); White Blood Count 9.5 10^3/uL (3.5-10.8)
[2018-08-06 08:12] LABS: Hematocrit 38 % (42-52); Hemoglobin 12.8 g/dL (14.0-18.0); Mean Corpuscular HGB Conc 34 g/dL (31-36); Mean Corpuscular Hemoglobin 31 pg (27-31); Mean Corpuscular Volume 93 fL (80-94); Mean Platelet Volume 8.2 fL (7.4-10.4); Platelet Count 166 10^3/uL (150-450); Red Cell Distribution Width 14 % (10.5-15); White Blood Count 9.5 10^3/uL (3.5-10.8)
[2018-08-06 08:14] LABS: INR 2.67 (0.82-1.09)
[2018-08-06 08:23] LABS: BUN/Creatinine Ratio 21.7 (8-20); Calcium 9.2 mg/dL (8.6-10.3); EGFR African American 105.8 (>60); EGFR Non-African American 87.4 (>60); Potassium 4.1 mmol/L (3.5-5.0)
[2018-08-06 09:14] LABS: ABS Lymphocytes 0.6 10^3/ul (1.0-4.8); ABS Monocytes 1.6 10^3/ul (0-0.8); ABS Neutrophils 7.3 10^3/ul (1.5-7.7); Eosinophil % 0.1 %; Lymphocyte % 6.7 %
--- NOTE | 2018-08-06 10:03 | PN ---
Subjective Date of Service: 08/06/18 Interval History: Patient is feeling well. He reports his cough is unchanged, but no evident previous reports of cough. Patient denies abd pain, chest pain, difficulty breathing, nausea, vomiting, fever/chills. He has not had a bowel movement since he's been here. Objective Active Medications: Acetaminophen (Tylenol Tab*) 650 mg PO Q4H PRN PRN Reason: FEVER Atorvastatin Calcium (Lipitor*) 10 mg PO DAILY [facility] Multivitamins/Minerals (Theragran/Minerals Tab*) 1 tab PO DAILY [facility] Tamsulosin HCl (Flomax Cap*) 0.4 mg PO DAILY [facility] Vital Signs - 8 hr 08/06/18 08/06/18 08/06/18 02:52 08:00 08:30 Temperature 98.2 F 97.8 F Pulse Rate 79 77 Respiratory 18 24 24 Rate Blood Pressure 111/41 117/44 (mmHg) O2 Sat by Pulse 97 92 Oximetry Oxygen Devices in Use Now: Nasal Cannula - 2L Appearance: Thin, elderly, white male, laying in hospital bed, appearing in NAD Eyes: No Scleral Icterus, PERRLA Ears/Nose/Mouth/Throat: Mucous Membranes Moist, - - Dried blood to tongue; oral secretions in oral cavity appear turbid, brown-tinged, and foul-smelling Neck: NL Appearance and Movements; NL JVP Respiratory: Symmetrical Chest Expansion and Respiratory Effort, - - Rhonchi throughout Cardiovascular: NL Sounds; No Murmurs; No JVD, RRR Abdominal: - - abdomen soft, nontender, nondistended Extremities: No Edema, No Clubbing, Cyanosis Neurological: Alert and Oriented x 3, NL Muscle Strength and Tone, - - Dysarthria Result Diagrams: 08/06/18 07:59 08/06/18 07:59 Microbiology and Other Data: Microbiology 08/04/18 07:25 Urine Culture - Final Urine No Growth (<1,000 CFU/mL) 08/04/18 20:15 Nasal Screen MRSA (PCR) - Final Nasal Mrsa Not Detected Assess/Plan/Problems-Billing Assessment: 87 yo male with PMHx mechanical valve on coumadin, HTN, HLD, esophageal stenosis presented with oropharyngeal bleeding s/p fall at home, briefly intubated for tongue suturing and later extubated. - Patient Problems (1) Oropharyngeal bleeding Code(s): J39.2 - OTHER DISEASES OF PHARYNX SNOMED Code(s): 831162478 Comment: -briefly intubated, left lateral aspect of tongue sutured by Dr. 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 West contacted, he has low concern for infection secondary to procedure and does not feel follow up is warranted; patient is afebrile and no leukocytosis (2) Fall Comment: -family friend and EMS reports that there is blood in the patient's bathroom; patient is unsure the mechanism of his fall -brain CT negative for intracranial pathology at admission 08/04/18 and no new fractures, orbit and nasal fractures on maxillofacial CT are old -patient continues to be unable to maintain his oral secretions, will continue prn suctioning -repeat brain CT w/o contrast to r/o subacute CVA -PT eval ordered, input appreciated as patient lives alone (3) Mechanical heart valve present Code(s): Z95.2 - PRESENCE OF PROSTHETIC HEART VALVE SNOMED Code(s): 92909607180260 Comment: - INR therapeutic; continue to monitor - continue warfarin as bleeding as subsided (4) HTN (hypertension) Code(s): I10 - ESSENTIAL (PRIMARY) HYPERTENSION SNOMED Code(s): 92447245 Comment: -recent medication list from PCP office obatained and no antihypertensives currently at home (5) Hyperlipemia Code(s): E78.5 - HYPERLIPIDEMIA, UNSPECIFIED SNOMED Code(s): 13388700 Comment: - continue lipitor 10 mg (6) DVT prophylaxis Code(s): EWL0466 - SNOMED Code(s): 086159992 Comment: -Pt on warfarin (7) Full code status Code(s): Z78.9 - OTHER SPECIFIED HEALTH STATUS SNOMED Code(s): 138146949
[2018-08-06] MEDS: Atorvastatin* 10 MG TAB PO SCH (10:16)
[2018-08-06] MEDS: Multivitamins/Minerals TAB PO SCH (10:16)
[2018-08-06] MEDS: Tamsulosin CAP* 0.4 MG PO SCH (10:16)
[2018-08-06] MEDS ORDERED: Albuterol HFA INHALER* 8 gm MDI INH PRN (10:53)
[2018-08-06] MEDS: Warfarin TAB(*) 2.5 MG PO SCH (16:20)
[2018-08-07] MEDS: Atorvastatin* 10 MG TAB PO SCH (12:08)
[2018-08-07] MEDS: Aspirin EC TAB* 81 MG TAB.EC PO SCH (12:08)
[2018-08-07] MEDS: Multivitamins/Minerals TAB PO SCH (12:09)
[2018-08-07] MEDS: Tamsulosin CAP* 0.4 MG PO SCH (12:10)
--- NOTE | 2018-08-07 13:41 | PN ---
Subjective Date of Service: 08/07/18 Interval History: Patient feels his cough is improved today. He is without pain. He denies fever, chills, chest pain, difficulty breathing, abd pain, nausea, vomiting. He has no complaints regarding soft diet and repeats recommendations [employer] made and feels confident in following recommendations. Objective Active Medications: Acetaminophen (Tylenol Tab*) 650 mg PO Q4H PRN PRN Reason: FEVER Albuterol (Ventolin Hfa Inhaler*) 2 puff INH Q6H PRN PRN Reason: SOB/WHEEZING Aspirin (Aspirin Ec Tab*) 81 mg PO DAILY [facility] Last Admin: 08/07/18 12:08 Dose: Not Given Atorvastatin Calcium (Lipitor*) 10 mg PO DAILY [facility] Last Admin: 08/07/18 12:08 Dose: Not Given Fluticasone Propionate (Flonase Nasal [place] 50mcg*) 2 spray BOTH NARES DAILY [facility] Multivitamins/Minerals (Theragran/Minerals Tab*) 1 tab PO DAILY [facility] Last Admin: 08/07/18 12:09 Dose: Not Given Tamsulosin HCl (Flomax Cap*) 0.4 mg PO DAILY [facility] Last Admin: 08/07/18 12:10 Dose: Not Given Warfarin Sodium (Coumadin Tab(*)) 2.5 mg PO MoWeFr@1700 [facility]; Protocol Last Admin: 08/06/18 16:20 Dose: Not Given Warfarin Sodium (Coumadin Tab(*)) [facility]; Protocol Vital Signs - 8 hr 08/07/18 08/07/18 08/07/18 07:52 08:00 11:06 Temperature 98.1 F 98.1 F Pulse Rate 84 84 Respiratory 22 18 20 Rate Blood Pressure 140/77 135/64 (mmHg) O2 Sat by Pulse 100 97 Oximetry Oxygen Devices in Use Now: Nasal Cannula Appearance: Elderly white male, sitting upright in hospital bed eating lunch, appearing in NAD Eyes: No Scleral Icterus, PERRLA Ears/Nose/Mouth/Throat: Mucous Membranes Moist, - - Oral cavity is clean, able to protude tongue midline, oral cavity without oral secretions, no foul odor Neck: NL Appearance and Movements; NL JVP Respiratory: Symmetrical Chest Expansion and Respiratory Effort, - - minimal crackles in bilateral lung bases Cardiovascular: NL Sounds; No Murmurs; No JVD, RRR Abdominal: - - abd soft, nontender, nondistended Extremities: No Edema, No Clubbing, Cyanosis Skin: No Rash or Ulcers Neurological: Alert and Oriented x 3, NL Muscle Strength and Tone, - - Speech slurring has resolved, speech is clear Result Diagrams: 08/07/18 15:00 08/07/18 15:00 Microbiology and Other Data: Microbiology 08/04/18 07:25 Urine Culture - Final Urine No Growth (<1,000 CFU/mL) 08/04/18 20:15 Nasal Screen MRSA (PCR) - Final Nasal Mrsa Not Detected Assess/Plan/Problems-Billing Assessment: 87 yo male with PMHx mechanical valve on coumadin, HTN, HLD, esophageal stenosis presented with oropharyngeal bleeding s/p fall at home, briefly intubated for tongue suturing and later extubated. - Patient Problems (1) Pneumonia Code(s): J18.9 - PNEUMONIA, UNSPECIFIED ORGANISM SNOMED Code(s): 431375193 Comment: -d/t patient's cough and crackes at lung bases today, ordered CXR which revealed small bibasilar infiltrates -patient without leukocytosis or fever -cannot rule out possibility of aspiration pneumonia given inability to manage oral secretions yesterday, possibly community acquired -starting po azithromycin 500 mg today then will continue 250; starting augmentin 875 mg po BID -pt has been saturating well on 2L and will wean O2 and continue to monitor (2) Oropharyngeal bleeding Code(s): J39.2 - OTHER DISEASES OF PHARYNX SNOMED Code(s): 593396762 Comment: -briefly intubated, left lateral aspect of tongue sutured by Dr. West at admission due to tongue laceration it setting of mechanical fall and likely biting tongue; dissolvable sutures used so follow up not necessary per Dr. West -extubated shortley after procedure -H&H stable -patient able to swallow oral secretions today, dysarthric speech is resolved; tongue is clean and pt denies pain (3) Fall Comment: -family friend and EMS reports that there is blood in the patient's bathroom; patient is unsure the mechanism of his fall -brain CT negative for intracranial pathology at admission 08/04/18 and no new fractures, orbit and nasal fractures on maxillofacial CT are old -patient continues to be unable to maintain his oral secretions, will continue prn suctioning -repeat brain CT w/o contrast still negative; this in combination with the slurred speech resolving today is reassuring that the etiology of fall was likely mechanical -PT recommends rehab, awaiting placement (4) Mechanical heart valve present Code(s): Z95.2 - PRESENCE OF PROSTHETIC HEART VALVE SNOMED Code(s): 63816005112825 Comment: - INR 2.09 today, subtherapeutic as patient has mechanical valve - warfarin as been restarted already; ordering 75 mg lovenox q12h and will continue to monitor INR (5) HTN (hypertension) Code(s): I10 - ESSENTIAL (PRIMARY) HYPERTENSION SNOMED Code(s): 37672356 Comment: -recent medication list from PCP office obatained and no antihypertensives currently at home -normotensive (6) Hyperlipemia Code(s): E78.5 - HYPERLIPIDEMIA, UNSPECIFIED SNOMED Code(s): 74923639 Comment: - continue lipitor 10 mg (7) DVT prophylaxis Code(s): TDI8848 - SNOMED Code(s): 158199585 Comment: -Pt on warfarin -ordered lovenox today (8) Full code status Code(s): Z78.9 - OTHER SPECIFIED HEALTH STATUS SNOMED Code(s): 903483360
[2018-08-07 15:11] LABS: Hematocrit 39 % (42-52); Hemoglobin 13.1 g/dL (14.0-18.0); Mean Corpuscular HGB Conc 34 g/dL (31-36); Mean Corpuscular Hemoglobin 31 pg (27-31); Mean Corpuscular Volume 93 fL (80-94); Mean Platelet Volume 8.2 fL (7.4-10.4); Platelet Count 194 10^3/uL (150-450); Red Blood Count 4.18 10^6 /uL (4.18-5.48); Red Cell Distribution Width 14 % (10.5-15); White Blood Count 10.1 10^3/uL (3.5-10.8)
[2018-08-07 15:16] LABS: INR 2.09 (0.82-1.09)
[2018-08-07 15:31] LABS: BUN/Creatinine Ratio 26.1 (8-20); Calcium 9.6 mg/dL (8.6-10.3); EGFR African American 93.9 (>60); EGFR Non-African American 77.6 (>60); Potassium 3.6 mmol/L (3.5-5.0)
[2018-08-07] MEDS ORDERED: Warfarin TAB(*) 5 MG PO SCH (17:00)
[2018-08-07] MEDS ORDERED: Azithromycin TAB* 250 MG PO ONE (19:26)
[2018-08-07] MEDS: Enoxaparin(*) 80 MG/0.8 ML SYR SUBCUT SCH (20:31)
[2018-08-07] MEDS: Amoxicillin/Clavulanate TAB* 875 MG PO SCH (20:32)
[2018-08-07] MEDS: Fluticasone NASAL SPRAY 50MCG* 16 gm SPRAY BTL BOTH NARES SCH (20:32)
[2018-08-08 07:59] LABS: INR 2.64 (0.82-1.09)
[2018-08-08 08:40] LABS: ABS Eosinophils 0.1 10^3/ul (0-0.6); ABS Monocytes 1.5 10^3/ul (0-0.8); ABS Neutrophils 7.6 10^3/ul (1.5-7.7); Eosinophil % 0.9 %; Hematocrit 36 % (42-52); Hemoglobin 12.1 g/dL (14.0-18.0); Lymphocyte % 9.4 %; Mean Corpuscular HGB Conc 34 g/dL (31-36); Mean Corpuscular Hemoglobin 31 pg (27-31); Mean Corpuscular Volume 92 fL (80-94); Mean Platelet Volume 8.3 fL (7.4-10.4); Nucleated Red Blood Cells % 0.1; Platelet Count 192 10^3/uL (150-450); Red Blood Count 3.91 10^6 /uL (4.18-5.48); Red Cell Distribution Width 14 % (10.5-15); White Blood Count 10.2 10^3/uL (3.5-10.8)
[2018-08-08] MEDS: Enoxaparin(*) 80 MG/0.8 ML SYR SUBCUT SCH (09:01)
[2018-08-08] MEDS: Aspirin EC TAB* 81 MG TAB.EC PO SCH (09:01)
[2018-08-08] MEDS: Multivitamins/Minerals TAB PO SCH (09:01)
[2018-08-08] MEDS: Atorvastatin* 10 MG TAB PO SCH (09:02)
[2018-08-08] MEDS: Amoxicillin/Clavulanate TAB* 875 MG PO SCH ×2 (09:02→21:49)
[2018-08-08] MEDS: Tamsulosin CAP* 0.4 MG PO SCH (09:02)
[2018-08-08] MEDS: Fluticasone NASAL SPRAY 50MCG* 16 gm SPRAY BTL BOTH NARES SCH (10:30)
[2018-08-08] MEDS: Warfarin TAB(*) 2.5 MG PO SCH (17:24)
[2018-08-08] MEDS: Azithromycin TAB* 250 MG PO SCH (17:51)
--- NOTE | 2018-08-08 19:48 | PN ---
Subjective Date of Service: 08/08/18 Interval History: Patient refusing rehab, states he has family friend who will help him at home for the next 2 weeks and would like to go home. Later, declined to walk with nursing staff for ambulating pulseox, stating "I can't walk." Patient feels his breathing and cough are improved. Denies dyspnea, chest pain, fever/chills, abd pain, n/v/d. Objective Active Medications: Acetaminophen (Tylenol Tab*) 650 mg PO Q4H PRN PRN Reason: FEVER Albuterol (Ventolin Hfa Inhaler*) 2 puff INH Q6H PRN PRN Reason: SOB/WHEEZING Amoxicillin/Clavulanate Potassium (Augmentin Tab*) 875 mg PO 0900,2100 [facility] Last Admin: 08/08/18 09:02 Dose: 875 mg Aspirin (Aspirin Ec Tab*) 81 mg PO DAILY [facility] Last Admin: 08/08/18 09:01 Dose: 81 mg Atorvastatin Calcium (Lipitor*) 10 mg PO DAILY [facility] Last Admin: 08/08/18 09:02 Dose: 10 mg Azithromycin (Zithromax Tab*) 250 mg PO 1800 [facility] Last Admin: 08/08/18 17:51 Dose: 250 mg Fluticasone Propionate (Flonase Nasal [place] 50mcg*) 2 spray BOTH NARES DAILY [facility] Last Admin: 08/08/18 10:30 Dose: 2 spray Multivitamins/Minerals (Theragran/Minerals Tab*) 1 tab PO DAILY [facility] Last Admin: 08/08/18 09:01 Dose: 1 tab Tamsulosin HCl (Flomax Cap*) 0.4 mg PO DAILY [facility] Last Admin: 08/08/18 09:02 Dose: 0.4 mg Warfarin Sodium (Coumadin Tab(*)) 2.5 mg PO MoWeFr@1700 [facility]; Protocol Last Admin: 08/08/18 17:24 Dose: 2.5 mg Warfarin Sodium (Coumadin Tab(*)) 5 mg PO SUTUTHSA [facility]; Protocol Last Admin: 08/07/18 18:08 Dose: 5 mg Vital Signs - 8 hr 08/08/18 08/08/18 08/08/18 11:45 13:10 15:25 Temperature 98.5 F 97.8 F 98.5 F Pulse Rate 102 114 90 Respiratory 18 18 22 Rate Blood Pressure 129/59 123/79 111/72 (mmHg) O2 Sat by Pulse 99 95 98 Oximetry Oxygen Devices in Use Now: None Appearance: Elderly white male, laying upright in hospital bed, appearing in NAD Eyes: No Scleral Icterus, PERRLA Ears/Nose/Mouth/Throat: Mucous Membranes Moist Neck: NL Appearance and Movements; NL JVP Respiratory: Symmetrical Chest Expansion and Respiratory Effort, - - minimal crackles at bilateral lung bases Cardiovascular: NL Sounds; No Murmurs; No JVD, RRR Abdominal: - - abd soft, nontender, nondistended Extremities: No Edema, No Clubbing, Cyanosis Skin: No Rash or Ulcers Neurological: Alert and Oriented x 3, NL Muscle Strength and Tone Result Diagrams: 08/08/18 07:58 08/07/18 15:00 Microbiology and Other Data: Microbiology 08/04/18 07:25 Urine Culture - Final Urine No Growth (<1,000 CFU/mL) 08/04/18 20:15 Nasal Screen MRSA (PCR) - Final Nasal Mrsa Not Detected Assess/Plan/Problems-Billing Assessment: 87 yo male with PMHx mechanical valve on coumadin, HTN, HLD, esophageal stenosis presented with oropharyngeal bleeding s/p fall at home, briefly intubated for tongue suturing and later extubated. - Patient Problems (1) Pneumonia Code(s): J18.9 - PNEUMONIA, UNSPECIFIED ORGANISM SNOMED Code(s): 287860041 Comment: -CXR which revealed small bibasilar infiltrates -patient without leukocytosis or fever -cannot rule out possibility of aspiration pneumonia given inability to manage oral secretions yesterday, possibly community acquired -continue azithromycin and augmentin -ordered sputum culture and gram stain on sputum expectorated today, small volume of blood noted, will continue to monitor -saturating well on RA, unable to assess ambulating oxygen due to patient refusal to walk with nursing staff (2) Oropharyngeal bleeding Code(s): J39.2 - OTHER DISEASES OF PHARYNX SNOMED Code(s): 031438896 Comment: -briefly intubated, left lateral aspect of tongue sutured by Dr. West at admission due to tongue laceration it setting of mechanical fall and likely biting tongue; dissolvable sutures used so follow up not necessary per Dr. West -extubated shortly after procedure -H&H stable -patient able to swallow oral secretions today, dysarthric speech is resolved; tongue is clean and pt denies pain -WOOD CRAFTER recs advancing diet to mechanical ground with thin liquids (3) Fall Comment: -family friend and EMS reports that there is blood in the patient's bathroom; patient is unsure the mechanism of his fall -brain CT negative for intracranial pathology at admission 08/04/18 and no new fractures, orbit and nasal fractures on maxillofacial CT are old -patient continues to be unable to maintain his oral secretions, will continue prn suctioning -repeat brain CT w/o contrast still negative; this in combination with the slurred speech resolving today is reassuring that the etiology of fall was likely mechanical -PT recommends rehab, patient declines (4) Mechanical heart valve present Code(s): Z95.2 - PRESENCE OF PROSTHETIC HEART VALVE SNOMED Code(s): 85877184118593 Comment: - INR 2.64 today, therapeutic - continue warfarin and d/c previous lovenox (5) HTN (hypertension) Code(s): I10 - ESSENTIAL (PRIMARY) HYPERTENSION SNOMED Code(s): 04889152 Comment: -recent medication list from PCP office obatained and no antihypertensives currently at home -normotensive (6) Hyperlipemia Code(s): E78.5 - HYPERLIPIDEMIA, UNSPECIFIED SNOMED Code(s): 24779693 Comment: - continue lipitor 10 mg (7) DVT prophylaxis Code(s): [id number] - SNOMED Code(s): 806037120 Comment: -Pt on warfarin (8) Full code status Code(s): Z78.9 - OTHER SPECIFIED HEALTH STATUS SNOMED Code(s): 710690803 Status and Disposition: PT recommends rehab, patient refusing today. Family friends are supportive and offering to care for him at home, but agree it may be unsafe for him to return home and are attempting to persuade patient overnight to consider rehab. Would otherwise benefit from VNS and PT at home if d/c home tomorrow.
[2018-08-09 07:01] LABS: INR 3.61 (0.82-1.09)
[2018-08-09] MEDS: Aspirin EC TAB* 81 MG TAB.EC PO SCH (09:27)
[2018-08-09] MEDS: Amoxicillin/Clavulanate TAB* 875 MG PO SCH ×2 (09:27→19:33)
[2018-08-09] MEDS: Multivitamins/Minerals TAB PO SCH (09:27)
[2018-08-09] MEDS: Tamsulosin CAP* 0.4 MG PO SCH (09:27)
[2018-08-09] MEDS: Atorvastatin* 10 MG TAB PO SCH (09:27)
[2018-08-09] MEDS: Fluticasone NASAL SPRAY 50MCG* 16 gm SPRAY BTL BOTH NARES SCH (09:33)
--- NOTE | 2018-08-09 10:55 | PN ---
Subjective Date of Service: 08/09/18 Interval History: Mr. Cristobal reports that he is feeling well although he does admit to feeling generally weak. His granddaughter is here and he is abiding by her staff genetic counselor that he should go to rehab. He denies any complaint today. Objective Active Medications: Acetaminophen (Tylenol Tab*) 650 mg PO Q4H PRN Albuterol (Ventolin Hfa Inhaler*) 2 puff INH Q6H PRN Amoxicillin/Clavulanate Potassium (Augmentin Tab*) 875 mg PO 0900,2100 [facility] Aspirin (Aspirin Ec Tab*) 81 mg PO DAILY [facility] Atorvastatin Calcium (Lipitor*) 10 mg PO DAILY [facility] Azithromycin (Zithromax Tab*) 250 mg PO 1800 [facility] Fluticasone Propionate (Flonase Nasal [place] 50mcg*) 2 spray BOTH NARES DAILY [facility] Multivitamins/Minerals (Theragran/Minerals Tab*) 1 tab PO DAILY [facility] Tamsulosin HCl (Flomax Cap*) 0.4 mg PO DAILY [facility] Warfarin Sodium (Coumadin Tab(*)) 2.5 mg PO MoWeFr@1700 [facility]; Protocol Warfarin Sodium (Coumadin Tab(*)) 5 mg PO SUTUTHSA [facility]; Protocol Vital Signs: Temp Pulse Resp BP Pulse Ox 97.8 F 62 16 117/62 97 08/09/18 07:32 08/09/18 07:32 08/09/18 07:32 08/09/18 07:32 08/09/18 07:32 Oxygen Devices in Use Now: None Appearance: Male sitting up in chair in NAD Eyes: No Scleral Icterus Ears/Nose/Mouth/Throat: Mucous Membranes Moist Neck: Trachea Midline Respiratory: Symmetrical Chest Expansion and Respiratory Effort, Clear to Auscultation Cardiovascular: NL Sounds; No Murmurs; No JVD, No Edema Abdominal: NL Sounds; No Tenderness; No Distention Extremities: No Edema Skin: No Rash or Ulcers Neurological: Alert and Oriented x 3, NL Muscle Strength and Tone Nutrition: Taking PO's Result Diagrams: 08/08/18 07:58 08/07/18 15:00 Microbiology and Other Data: . Assess/Plan/Problems-Billing Assessment: Ms. Cristobal is an 87 yo male with PMHx mechanical valve on coumadin, HTN, HLD, esophageal stenosis presented with oropharyngeal bleeding s/p fall at home, briefly intubated for tongue suturing and later extubated, now with deconditioning and weakness with need for rehab. - Patient Problems (1) Fall Comment: - Patient states that he slipped and fell in the bathroom - brain CT negative for intracranial pathology at admission 08/04/18 and no new fractures, orbit and nasal fractures on maxillofacial CT are old - PT recommends rehab, patient now amenable (2) Oropharyngeal bleeding Comment: - Briefly intubated, left lateral aspect of tongue sutured by Dr. West at admission due to tongue laceration in setting of mechanical fall and likely biting tongue; dissolvable sutures used so follow up not necessary per Dr. West - H&H stable - Patient able to swallow oral secretions today, dysarthric speech is resolved; tongue is clean and pt denies pain - KINDERGARTEN ASSISTANT recs advancing diet to mechanical ground with thin liquids (3) Pneumonia Comment: -CXR which revealed small bibasilar infiltrates -patient without leukocytosis or fever -cannot rule out possibility of aspiration pneumonia given inability to manage oral secretions yesterday, possibly community acquired -continue azithromycin and augmentin -ordered sputum culture and gram stain on sputum expectorated today, small volume of blood noted, will continue to monitor -saturating well on RA, unable to assess ambulating oxygen due to patient refusal to walk with nursing staff (4) HTN (hypertension) Comment: -recent medication list from PCP office obatained and no antihypertensives currently at home -normotensive (5) Hyperlipemia Comment: - continue lipitor 10 mg (6) Mechanical heart valve present Comment: - INR 3.6 today - hold warfarin (7) Afib Comment: pt denies hx of afib, HR irregular but suspect sinus arrhythmia, check EKG now Prior EKG with SR with prolonged MA (8) DVT prophylaxis Comment: -Pt on warfarin (9) Full code status Comment: Status and Disposition: PT amenable to going to rehab. production assembly supervisor aware.
[2018-08-09] MEDS ORDERED: Warfarin TAB(*) 5 MG PO SCH (17:00)
[2018-08-09] MEDS: Azithromycin TAB* 250 MG PO SCH (17:55)
[2018-08-09] MEDS ORDERED: Docusate CAP* 100 MG PO PRN (21:29)
[2018-08-09] MEDS ORDERED: Senna TAB PO PRN (21:29)
[2018-08-09] MEDS ORDERED: Bisacodyl SUPP* 10 MG SUPP PR PRN (21:30)
[2018-08-09] MEDS ORDERED: Polyethylene Glycol 3350* 17 GM PACKET PO PRN (21:30)
[2018-08-10 07:12] LABS: INR 4.06 (0.82-1.09)
[2018-08-10] MEDS: Tamsulosin CAP* 0.4 MG PO SCH (09:04)
[2018-08-10] MEDS: Multivitamins/Minerals TAB PO SCH (09:04)
[2018-08-10] MEDS: Aspirin EC TAB* 81 MG TAB.EC PO SCH (09:04)
[2018-08-10] MEDS: Amoxicillin/Clavulanate TAB* 875 MG PO SCH ×2 (09:04→19:52)
[2018-08-10] MEDS: Fluticasone NASAL SPRAY 50MCG* 16 gm SPRAY BTL BOTH NARES SCH (09:04)
[2018-08-10] MEDS: Atorvastatin* 10 MG TAB PO SCH (09:04)
[2018-08-10] MEDS: Azithromycin TAB* 250 MG PO SCH (17:51)
--- NOTE | 2018-08-10 18:04 | PN ---
Subjective Date of Service: 08/10/18 Interval History: Mr. Cristobal's only complaint today is of left ankle pain with any weight bearing. He denies chest pain or SOB. He is tolerating oral intake well. He continue to be amenable to transfer to short term rehab when a bed is available. Objective Active Medications: Acetaminophen (Tylenol Tab*) 650 mg PO Q4H PRN Albuterol (Ventolin Hfa Inhaler*) 2 puff INH Q6H PRN Amoxicillin/Clavulanate Potassium (Augmentin Tab*) 875 mg PO 0900,2100 [facility] Aspirin (Aspirin Ec Tab*) 81 mg PO DAILY [facility] Atorvastatin Calcium (Lipitor*) 10 mg PO DAILY [facility] Azithromycin (Zithromax Tab*) 250 mg PO 1800 [facility] Bisacodyl (Dulcolax Supp*) 10 mg [place] DAILY [facility] Docusate Sodium (Colace Cap*) 100 mg PO DAILY [facility] Fluticasone Propionate (Flonase Nasal [place] 50mcg*) [address] [facility] Multivitamins/Minerals (Theragran/Minerals Tab*) 1 tab PO DAILY [facility] Polyethylene Glycol/Electrolytes (Miralax*) 17 gm PO DAILY [facility] Senna (Senokot Tab*) 1 tab PO BEDTIME [facility] Tamsulosin HCl (Flomax Cap*) 0.[address] [facility] Vital Signs: Temp Pulse Resp BP Pulse Ox 98.5 F 76 20 125/63 94 08/11/18 07:48 08/11/18 07:48 08/11/18 07:52 08/11/18 07:48 08/11/18 07:48 Oxygen Devices in Use Now: Nasal Cannula Appearance: Male lying in bed in NAD Eyes: No Scleral Icterus Ears/Nose/Mouth/Throat: Mucous Membranes Moist Neck: Trachea Midline Respiratory: Symmetrical Chest Expansion and Respiratory Effort, Clear to Auscultation Cardiovascular: NL Sounds; No Murmurs; No JVD, No Edema Abdominal: NL Sounds; No Tenderness; No Distention Extremities: No Edema, - - Pain with firm palpation of left medial ankle Skin: No Rash or Ulcers Neurological: Alert and Oriented x 3, NL Muscle Strength and Tone Nutrition: Taking PO's Result Diagrams: 08/08/18 07:58 08/07/18 15:00 Microbiology and Other Data: . Assess/Plan/Problems-Billing Assessment: Ms. Cristobal is an 87 yo male with PMHx mechanical valve on coumadin, HTN, HLD, esophageal stenosis presented with oropharyngeal bleeding s/p fall at home, briefly intubated for tongue suturing and later extubated, now with deconditioning and weakness with need for rehab. - Patient Problems (1) Fall Comment: - Patient states that he slipped and fell in the bathroom - Brain CT negative for intracranial pathology at admission 08/04/18 and no new fractures, orbit and nasal fractures on maxillofacial CT are old - PT recommends rehab, patient now amenable (2) Oropharyngeal bleeding Comment: - Briefly intubated, left lateral aspect of tongue sutured by Dr. West at admission due to tongue laceration in setting of mechanical fall and likely biting tongue; dissolvable sutures used so follow up not necessary per Dr. West - H&H stable - Patient able to swallow oral secretions today, dysarthric speech is resolved; tongue is clean and pt denies pain - ICE CREAM SERVER recs advancing diet to mechanical ground with thin liquids (3) Pneumonia Comment: - Currently on 1L [place] - CXR which revealed small bibasilar infiltrates - Patient without leukocytosis or fever - Cannot rule out possibility of aspiration pneumonia given inability to manage oral scretions initially - Continue azithromycin and augmentin (4) HTN (hypertension) Comment: - Recent medication list from PCP office obatained and no antihypertensives currently at home - SBP 110-120s (5) Left ankle pain Comment: - Ankle xray negative - If patient has persistent pain and inability to bear weight, may need further imaging (6) Hyperlipemia Comment: - Continue lipitor 10 mg (7) Mechanical heart valve present Comment: - INR 3.46 today - Hold warfarin (8) Afib Comment: - Pt denies hx of afib, HR irregular but EKG shows SR with PACs (9) DVT prophylaxis Comment: - Therapeutic INR (10) Full code status Comment: Status and Disposition: PT amenable to going to rehab. epic anesthesia analyst aware.
[2018-08-11] MEDS: Acetaminophen TAB* 325 MG PO PRN (01:34)
[2018-08-11 06:02] LABS: INR 3.46 (0.82-1.09)
[2018-08-11] MEDS: Tamsulosin CAP* 0.4 MG PO SCH (07:50)
[2018-08-11] MEDS: Atorvastatin* 10 MG TAB PO SCH (07:50)
[2018-08-11] MEDS: Amoxicillin/Clavulanate TAB* 875 MG PO SCH ×2 (07:50→20:08)
[2018-08-11] MEDS: Multivitamins/Minerals TAB PO SCH (07:50)
[2018-08-11] MEDS: Aspirin EC TAB* 81 MG TAB.EC PO SCH (07:50)
[2018-08-11] MEDS: Fluticasone NASAL SPRAY 50MCG* 16 gm SPRAY BTL BOTH NARES SCH (07:50)
--- NOTE | 2018-08-11 08:26 | PN ---
Subjective Date of Service: 08/11/18 Interval History: Mr. Cristobal denies complaint today. He specifically denies chest pain, SOB, nausea, or abdominal pain. Objective Active Medications: Acetaminophen (Tylenol Tab*) 650 mg PO Q4H PRN Albuterol (Ventolin Hfa Inhaler*) 2 puff INH Q6H PRN Amoxicillin/Clavulanate Potassium (Augmentin Tab*) 875 mg PO 0900,2100 [facility] Aspirin (Aspirin Ec Tab*) 81 mg PO DAILY [facility]IK[facility] Atorvastatin Calcium (Lipitor*) 10 mg PO DAILY ANIKA Azithromycin (Zithromax Tab*) 250 mg PO 1800 ANIKA Bisacodyl (Dulcolax Supp*) 10 mg TN DAILY PRN Docusate Sodium (Colace Cap*) 100 mg PO DAILY PRN Fluticasone Propionate (Flonase Nasal [place] 50mcg*) 2 spray BOTH NARES DAILY ANIKA Multivitamins/Minerals (Theragran/Minerals Tab*) 1 tab PO DAILY ANIKA Polyethylene Glycol/Electrolytes (Miralax*) 17 gm PO DAILY PRN Senna (Senokot Tab*) 1 tab PO BEDTIME PRN Tamsulosin HCl (Flomax Cap*) 0.4 mg PO DAILY [facility] Vital Signs: Temp Pulse Resp BP Pulse Ox 98.5 F 76 20 125/63 94 08/11/18 07:48 08/11/18 07:48 08/11/18 07:52 08/11/18 07:48 08/11/18 07:48 Oxygen Devices in Use Now: Nasal Cannula Appearance: Male sitting up in bed in NAD Eyes: No Scleral Icterus Ears/Nose/Mouth/Throat: Mucous Membranes Moist Neck: Trachea Midline Respiratory: Symmetrical Chest Expansion and Respiratory Effort, Clear to Auscultation Cardiovascular: NL Sounds; No Murmurs; No JVD, No Edema Abdominal: NL Sounds; No Tenderness; No Distention Extremities: No Edema Skin: No Rash or Ulcers Neurological: Alert and Oriented x 3, NL Muscle Strength and Tone Nutrition: Taking PO's Result Diagrams: 08/08/18 07:58 08/07/18 15:00 Microbiology and Other Data: . Assess/Plan/Problems-Billing Assessment: Ms. Cristobal is an 87 yo male with PMHx mechanical valve on coumadin, HTN, HLD, esophageal stenosis presented with oropharyngeal bleeding s/p fall at home, briefly intubated for tongue suturing and later extubated, now with deconditioning and weakness with need for rehab. - Patient Problems (1) Fall Comment: - Patient states that he slipped and fell in the bathroom - Brain CT negative for intracranial pathology at admission 08/04/18 and no new fractures, orbit and nasal fractures on maxillofacial CT are old - PT recommends rehab, patient now amenable (2) Oropharyngeal bleeding Comment: - Briefly intubated, left lateral aspect of tongue sutured by Dr. West at admission due to tongue laceration in setting of mechanical fall and likely biting tongue; dissolvable sutures used so follow up not necessary per Dr. West - H&H stable - [employer] C[employer] recs advancing diet to mechanical ground with thin liquids (3) Pneumonia Comment: - Currently on 1L NC, wean as tolerated - CXR which revealed small bibasilar infiltrates - Patient without leukocytosis or fever - Cannot rule out possibility of aspiration pneumonia given inability to manage oral scretions initially - Continue azithromycin and augmentin (4) HTN (hypertension) Comment: - Recent medication list from PCP office obatained and no antihypertensives currently at home - SBP 110-120s (5) Left ankle pain Comment: - Ankle xray negative - If patient has persistent pain and inability to bear weight, may need further imaging (6) Hyperlipemia Comment: - Continue lipitor 10 mg (7) Mechanical heart valve present Comment: - INR 3.46 today - Hold warfarin (8) Afib Comment: - Pt denies hx of afib, HR irregular but EKG shows SR with PACs (9) DVT prophylaxis Comment: - Therapeutic INR (10) Full code status Comment: Status and Disposition: PT amenable to going to rehab. brine process operator aware.
[2018-08-11] MEDS: Azithromycin TAB* 250 MG PO SCH (16:03)
[2018-08-12 07:36] LABS: INR 2.4 (0.82-1.09)
[2018-08-12] MEDS: Multivitamins/Minerals TAB PO SCH (08:53)
[2018-08-12] MEDS: Atorvastatin* 10 MG TAB PO SCH (08:53)
[2018-08-12] MEDS: Amoxicillin/Clavulanate TAB* 875 MG PO SCH ×2 (08:53→21:07)
[2018-08-12] MEDS: Aspirin EC TAB* 81 MG TAB.EC PO SCH (08:53)
[2018-08-12] MEDS: Tamsulosin CAP* 0.4 MG PO SCH (08:53)
[2018-08-12] MEDS: Fluticasone NASAL SPRAY 50MCG* 16 gm SPRAY BTL BOTH NARES SCH (08:54)
--- NOTE | 2018-08-12 13:19 | PN ---
Subjective Date of Service: 08/12/18 Interval History: Mr. Cristobal continues to complain of pain in his left foot/ankle. Whereas before he seemed to describe the pain as in his ankle, today he is clear that it is in the top of his foot. This foot pain is new since his recent fall and is preventing him from ambulating as it hurts to bear weight. He denies other complaint today. Objective Active Medications: Acetaminophen (Tylenol Tab*) 650 mg PO Q4H PRN Albuterol (Ventolin Hfa Inhaler*) 2 puff INH Q6H PRN Amoxicillin/Clavulanate Potassium (Augmentin Tab*) 875 mg PO 0900,2100 [facility] Aspirin (Aspirin Ec Tab*) 81 mg PO DAILY ANIKA Atorvastatin Calcium (Lipitor*) 10 mg PO DAILY [facility]IK[facility] Azithromycin (Zithromax Tab*) 250 mg PO 1800 ANIKA Bisacodyl (Dulcolax Supp*) 10 mg TN DAILY PRN Docusate Sodium (Colace Cap*) 100 mg PO DAILY PRN Fluticasone Propionate (Flonase Nasal [place] 50mcg*) 2 spray BOTH NARES DAILY [facility] Multivitamins/Minerals (Theragran/Minerals Tab*) 1 tab PO DAILY [facility]IK[facility] Polyethylene Glycol/Electrolytes (Miralax*) 17 gm PO DAILY PRN Senna (Senokot Tab*) 1 tab PO BEDTIME PRN Tamsulosin HCl (Flomax Cap*) 0.4 mg PO DAILY [facility] Vital Signs - 8 hr 08/12/18 08/12/18 08/12/18 07:42 08:57 11:15 Temperature 98.3 F 97.8 F Pulse Rate 69 81 Respiratory 20 20 20 Rate Blood Pressure 124/68 146/72 (mmHg) O2 Sat by Pulse 93 97 Oximetry Oxygen Devices in Use Now: None Appearance: Male sitting up in chair in NAD Eyes: No Scleral Icterus Ears/Nose/Mouth/Throat: Mucous Membranes Moist Neck: Trachea Midline Respiratory: Symmetrical Chest Expansion and Respiratory Effort, Clear to Auscultation Cardiovascular: NL Sounds; No Murmurs; No JVD, No Edema Abdominal: NL Sounds; No Tenderness; No Distention Extremities: - - Pain with palpation of top of left foot Skin: No Rash or Ulcers Neurological: Alert and Oriented x 3, NL Muscle Strength and Tone Result Diagrams: 08/08/18 07:58 08/07/18 15:00 Microbiology and Other Data: . Assess/Plan/Problems-Billing Assessment: Ms. Cristobal is an 87 yo male with PMHx mechanical valve on coumadin, HTN, HLD, esophageal stenosis presented with oropharyngeal bleeding s/p fall at home, briefly intubated for tongue suturing and later extubated, now with deconditioning and weakness with need for rehab. - Patient Problems (1) Fall Comment: - Patient states that he slipped and fell in the bathroom - Brain CT negative for intracranial pathology at admission 08/04/18 and no new fractures, orbit and nasal fractures on maxillofacial CT are old - PT recommends rehab, patient now amenable (2) Left foot pain Comment: - Persistent pain, now described in dorsum of left foot rather than ankle - Check left foot xray now, left ankle xray did not show a fracture (3) Oropharyngeal bleeding Comment: - Briefly intubated, left lateral aspect of tongue sutured by Dr. West at admission due to tongue laceration in setting of mechanical fall and likely biting tongue; dissolvable sutures used so follow up not necessary per Dr. West - H&H stable - MAILROOM COURIER recs advancing diet to mechanical ground with thin liquids (4) Pneumonia Comment: - Weaned off of oxygen - CXR which revealed small bibasilar infiltrates - Patient without leukocytosis or fever - Cannot rule out possibility of aspiration pneumonia given inability to manage oral scretions initially - Continue azithromycin and augmentin, stop date 08/12/18 (5) HTN (hypertension) Comment: - SBP 110-120s - Recent medication list from PCP office obatained and no antihypertensives currently at home (6) Hyperlipemia Comment: - Continue lipitor 10 mg (7) Mechanical heart valve present Comment: - INR 2.4 today - Resume warfarin at lower dose (8) Afib Comment: - Pt denies hx of afib, HR irregular but EKG shows SR with PACs (9) DVT prophylaxis Comment: - Therapeutic INR (10) Full code status Comment: Status and Disposition: PT amenable to going to rehab. managed care specialist aware.
--- NOTE | 2018-08-12 14:29 | DS ---
HOSPITAL MEDICINE DISCHARGE SUMMARY: ADDENDUM: Mr. Cristobal was noted to have what appears to be mucus plugging on CT scan on arrival in the right lung base. As noted above, he was treated with 5 days of antibiotics and is off oxygen. I recommend that he have followup imaging to ensure resolution of these apparent pneumonic changes. FRANCOIS NGUYỄN NP [id number]/[facility] #: [id number] JACKIE
--- NOTE | 2018-08-12 15:02 | DS ---
ADDENDUM NOW INCLUDED ON THIS REPORT CC: Dr. Cool * [facility] MEDICINE DISCHARGE SUMMARY: DATE OF ADMISSION: 08/04/18 DATE OF ANTICIPATED DISCHARGE: 08/13/18 PRIMARY CARE PHYSICIAN: Dr. Cool. ATTENDING PHYSICIAN: Dr. Carrington * (dictation provided by Moira Hill NP). PRIMARY DIAGNOSES: 1. Fall. 2. Tongue laceration with oropharyngeal bleeding, now status post suture. 3. Question aspiration pneumonia. SECONDARY DIAGNOSES: 1. History of mechanical aortic valve, on warfarin. 2. Hyperlipidemia. 3. Hypertension. 4. History of esophageal stenosis requiring dilatation in the past. 5. Benign prostatic hyperplasia. MEDICATIONS AT THE TIME OF DISCHARGE: 1. Warfarin 2.5 mg p.o. daily (new reduced dose with current INR today on 08/12 of 2.4). 2. Tamsulosin 0.4 mg p.o. daily. 3. Multivitamin with minerals 1 tab p.o. daily. 4. Fluticasone nasal spray 2 sprays both nares daily. 5. Atorvastatin 10 mg p.o. daily. 6. Aspirin 81 mg p.o. daily. 7. Albuterol inhaler 2 puffs inhaled q.4 hours p.r.n. shortness of breath. HISTORY OF PRESENT ILLNESS/HOSPITAL COURSE: Mr. Cristobal is an 87-year-old male, who presented to the hospital on 08/04/18 after a fall at home, which resulted in a tongue laceration. Please see the dictated H and P from Dr. Damico for complete details. In brief, the patient was on warfarin for history of aortic valve replacement and had copious bleeding from the tongue but it was felt to be compromising his airway. He was intubated by the towel hemmer and seen emergently by the ENT, who provided suturing at the bedside successfully. On arrival, Mr. Cristobal had multiple imaging studies as follows: 1. Brain CT: "No intracranial hemorrhage, cerebral atrophy, hypoplastic right maxillary sinus, complete opacification of the right maxillary sinus." 2. 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 The visualized portions of the endotracheal tube and orogastric tube indicate appropriate placement." 3. He had a chest, abdomen and pelvis CT, which showed "no acute fracture, no pneumothorax or pulmonary contusions. Interval development of extensive mucoid impaction at the right base of the lung with right lung volume loss and left to right mediastinal shift." 4. He had a chest x-ray, which showed "the endotracheal tube is above the clavicular heads." 5. Maxillofacial CT showed "old blowout fracture of the floor of the right orbit, swollen turbinates with compromise of the airway, bilateral nasal bone fracture deformities, cerebral atrophy, hypoplastic right maxillary sinus, complete opacification of the right maxillary sinus, mild chronic left frontal sinusitis, occlusion of the right ostiomeatal complex." Mr. Cristobal was extubated shortly after hemostasis was obtained secondary to oropharyngeal bleeding. He had a followup CT brain on 08/06/18, which showed "involutional change and negative for intracranial hemorrhage or CT stigmata of ischemic stroke." Repeat chest x-ray on 08/07/18 showed "low lung volume, small bibasilar infiltrates." Mr. Cristobal has been doing well since the sutures were placed to his tongue and he has been able to be extubated. There was concern based on the chest x-ray findings that he had perhaps aspirated and he has been treated with appropriate course of Augmentin and azithromycin for this. He was on only 1 L nasal cannula up until yesterday, but has now been weaned to room air. Mr. Cristobal has remained in the hospital because he remains weakened and it is felt that he is unstable and too deconditioned to care for himself at home. He has been evaluated by Physical Therapy and deemed to be appropriate for rehab. He is continued to complain of left ankle/foot pain. Ankle x-ray showed osteopenia with peripheral arterial disease and no acute osseous injury. However, today, he is complaining more of a right foot pain and therefore x-ray of that is pending. Mr. Cristobal is medically stable to discharge to [facility] for subacute rehab. DISPOSITION: To [facility]. DIET: Low fat, low salt. ACTIVITY: As tolerated. FOLLOWUP PLANS: 1. Please follow up with providers at [facility] per routine regarding ongoing management of INR with repeat check on 08/14/18. 2. Please follow up with Dr. Cool at the time of discharge from rehab. TIME SPENT: Approximately 60 minutes was spent on the discharge of this patient , more than half the time was spent with the patient at the bedside reviewing the events leading up to and during this hospitalization, performing the physical examination, and reviewing the plan of care. MOIRA HILL NP ADDENDUM: Mr. Cristobal was noted to have what appears to be mucus plugging on CT scan on arrival in the right lung base. As noted above, he was treated with 5 days of antibiotics and is off oxygen. I recommend that he have followup imaging to ensure resolution of these apparent pneumonic changes. MOIRA HILL NP [id number]/[facility] #: [id number]/[facility] #: [id number] JACKIE
[2018-08-12] MEDS: Azithromycin TAB* 250 MG PO SCH (16:53)
[2018-08-12] MEDS ORDERED: Warfarin TAB(*) 2.5 MG PO SCH (17:00)
[2018-08-12] MEDS: Acetaminophen TAB* 325 MG PO PRN (21:07)
[2018-08-12] MEDS ORDERED: traMADol TAB* 50 MG PO PRN (21:59)
[2018-08-13 03:46] VITALS: BP 103/52
[2018-08-13 06:43] LABS: INR 2.07 (0.82-1.09)
[2018-08-13] MEDS: Atorvastatin* 10 MG TAB PO SCH ×2 (08:35→08:44)
[2018-08-13] MEDS: Multivitamins/Minerals TAB PO SCH (08:35)
[2018-08-13] MEDS: Tamsulosin CAP* 0.4 MG PO SCH (08:35)
[2018-08-13] MEDS: Aspirin EC TAB* 81 MG TAB.EC PO SCH (08:35)
[2018-08-13] MEDS: Fluticasone NASAL SPRAY 50MCG* 16 gm SPRAY BTL BOTH NARES SCH (08:35)
== END 2018-08-13 11:00 | DRG 157 ==
LOC: ED 05:34 → ICU 09:02 → MED 08-05 15:30
PROVIDERS: ADMIT Internal Medicine; ATTEND Internal Medicine
PROC: 0CQ7XZZ Repair Tongue, External Approach (ICD-10-PCS; principal; 2018-08-04)
PROC: 0BH17EZ Insertion of Endotracheal Airway into Trachea, Via Natural or Artificial Opening (ICD-10-PCS; 2018-08-04)
PROC: 5A1935Z Respiratory Ventilation, Less than 24 Consecutive Hours (ICD-10-PCS; 2018-08-04)
PROC: 0BP1XDZ Removal of Intraluminal Device from Trachea, External Approach (ICD-10-PCS; 2018-08-04)
DX: S01.512A Laceration without foreign body of oral cavity, initial encounter (principal); J69.0 Pneumonitis due to inhalation of food and vomit; K13.79 Other lesions of oral mucosa; I48.91 Unspecified atrial fibrillation; E78.00 Pure hypercholesterolemia, unspecified; I10 Essential (primary) hypertension; K21.9 Gastro-esophageal reflux disease without esophagitis; H26.9 Unspecified cataract; H91.90 Unspecified hearing loss, unspecified ear; R40.2362 Coma scale, best motor response, obeys commands, at arrival to emergency department; J32.1 Chronic frontal sinusitis; G31.9 Degenerative disease of nervous system, unspecified; R40.2142 Coma scale, eyes open, spontaneous, at arrival to emergency department; E78.5 Hyperlipidemia, unspecified; N40.0 Benign prostatic hyperplasia without lower urinary tract symptoms; K22.2 Esophageal obstruction; R40.2252 Coma scale, best verbal response, oriented, at arrival to emergency department; I73.89 Other specified peripheral vascular diseases; M85.872 Other specified disorders of bone density and structure, left ankle and foot; W01.0XXA Fall on same level from slipping, tripping and stumbling without subsequent striking against object, initial encounter; M47.812 Spondylosis without myelopathy or radiculopathy, cervical region; R47.81 Slurred speech; I49.1 Atrial premature depolarization; M79.671 Pain in right foot; Z97.4 Presence of external hearing-aid; Z95.2 Presence of prosthetic heart valve; Z82.49 Family history of ischemic heart disease and other diseases of the circulatory system; Z72.89 Other problems related to lifestyle; Z91.81 History of falling; Z95.1 Presence of aortocoronary bypass graft; Z79.01 Long term (current) use of anticoagulants; Z79.82 Long term (current) use of aspirin; Y92.002 Bathroom of unspecified non-institutional (private) residence as the place of occurrence of the external cause
CPT/HCPCS: 36415; 36600; 70450; 70486; 71045; 71046; 71260; 72125; 74177; 80048; 80053; 80320; 81003; 81015; 82803; 83605; 83735; 84484; 85025; 85027; 85610; 86850; 86900; 86901; 87070; 87086; 87205; 87641; 93005; 94660; 99285; A9270-GY; G0480; G8978-GP-CL; G8979-GP-CH; G8979-GP-CI; G8987-GO-CL; G8988-GO-CI; J0330; J1650; J2543; J2704; J3010; Q9967

== ENCOUNTER 2019-01-19 11:01 | Emergency (ER) | payer MEDICARE, OTHER ==
--- OUTSIDE RECORDS SUMMARY | 2019-01-19 11:08 | XMS REPORT ---
:1930 Author Organization [facility] Team Providers Name Role Phone Unavailable Unavailable Unavailable Problems This patient has no known problems. Allergies, Adverse Reactions, Alerts Allergy Allergy Status Severity Reaction(s) Onset Inactive Treating Comments Name Type Date Date Clinician Uncoded Unknown Active Unknown Reaction 2018-08 Interface free-text allergy Medications Ordered Filled Start Stop Current Ordering Indication Dosage Frequency Signature Comments Components Medication Medication Date Date Medication? Clinician (SIG) Name Name warfarin warfarin No Unknown Unknown Unknown 2.5 mg 2.5 mg 2-11 tablet tablet warfarin 5 warfarin 5 No Unknown Unknown Unknown mg tablet mg tablet 2-11 tamsulosin tamsulosin No Unknown Unknown Unknown 0.4 mg 0.4 mg 2-11 capsule capsule aspirin, aspirin, No Unknown Unknown Unknown buffered 81 buffered 81 1-07 mg mg tablet,sandra tablet,sandra yed release yed release atorvastati atorvastati No Unknown Unknown Unknown n 10 mg n 10 mg 07 tablet tablet fluticasone fluticasone No Unknown Unknown Unknown propionate propionate 03-12 50 50 mcg/actuati mcg/actuati on nasal on nasal spray,suspe spray,suspe nsion nsion Multivitami Multivitami No Unknown Unknown Unknown ns/Minerals ns/Minerals 03-12 Tab* Tab* Albuterol Albuterol No Unknown Unknown Unknown Hfa Hfa 6-03 Inhaler* Inhaler* Vital Signs Vital Name Observation Time Observation Value Comments SYSTOLIC mm[Hg] 2018-08-09 18:06:10 117 mm[Hg] mm[Hg] Method: Sit DIASTOLIC mm[Hg] 2018-08-09 18:06:10 62 mm[Hg] mm[Hg] Method: Sit PULSE 2018-08-09 18:06:10 62 /min /min RESP RATE 2018-08-09 18:06:10 16 /min /min TEMP 2018-08-09 18:06:10 97.8 [degF] Procedures This patient has no known procedures. Results Test Description Test Time Test Comments Text Results Atomic Results Result Comments Laboratory Studies 2018-08-09 06:32:00 Identifier [id number] Result Time Unknown 2018-08-09 06:32:00 Test Item Value Reference Range Comments Unknown (test code = 92985-5) 3.61 Unknown 0.82-1.09 F Ordering Physician UnknownLaboratory Gasmwxz2401-97-03 07:58:00Identifier 58995- 6 Result Time 2018-08-08 07:58:00Unknown Test Item Value Reference Range Comments Unknown (test code = 07627-5) 10.2 10^3/uL Unknown 3.5-10.8 F Ordering Physician UnknownLaboratory Nxovmnp1941-20-04 07:58:00Identifier 50540- 6 Result Time 2018-08-08 07:58:00Unknown Test Item Value Reference Range Comments Unknown (test code = 788-0) 14 % Unknown 10.5-15 F Ordering Physician UnknownLaboratory Rafnwfh6634-00-91 07:58:00Identifier 26045- 6 Result Time 2018-08-08 07:58:00Unknown Test Item Value Reference Range Comments Unknown (test code = 789-8) 3.91 10^6 /uL Unknown 4.18-5.48 F Ordering Physician UnknownLaboratory Lwiwgaz1138-90-95 07:58:00Identifier 22799- 6 Result Time 2018-08-08 07:58:00Unknown Test Item Value Reference Range Comments Unknown (test code = 777-3) 192 10^3/uL Unknown 150-450 F Ordering Physician UnknownLaboratory Zhrvgqh2909-04-45 07:58:00Identifier 70177- 6 Result Time 2018-08-08 07:58:00Unknown Test Item Value Reference Range Comments Unknown (test code = 38043-1) 0.1 Unknown Unknown F Ordering Physician UnknownLaboratory Olulyic6244-20-76 07:58:00Identifier 32762- 6 Result Time 2018-08-08 07:58:00Unknown Test Item Value Reference Range Comments Unknown (test code = 771-6) 0.0 10^3/ul Unknown Unknown F Ordering Physician UnknownLaboratory Bfeenvw9144-54-27 07:58:00Identifier 76821- 6 Result Time 2018-08-08 07:58:00Unknown Test Item Value Reference Range Comments Unknown (test code = 770-8) 74.5 % Unknown Unknown F Ordering Physician UnknownLaboratory Euexmus3176-85-22 07:58:00Identifier 22110- 6 Result Time 2018-08-08 07:58:00Unknown Test Item Value Reference Range Comments Unknown (test code = 5905-5) 14.9 % Unknown Unknown F Ordering Physician UnknownLaboratory Gtvulpb9168-96-55 07:58:00Identifier 75987- 6 Result Time 2018-08-08 07:58:00Unknown Test Item Value Reference Range Comments Unknown (test code = 99245-7) 8.3 fL Unknown 7.4-10.4 F Ordering Physician UnknownLaboratory Krftrfp7435-70-40 07:58:00Identifier 32856- 6 Result Time 2018-08-08 07:58:00Unknown Test Item Value Reference Range Comments Unknown (test code = 787-2) 92 fL Unknown 80-94 F Ordering Physician UnknownLaboratory Mrdufyq7306-83-73 07:58:00Identifier 92007- 6 Result Time 2018-08-08 07:58:00Unknown Test Item Value Reference Range Comments Unknown (test code = 786-4) 34 g/dL Unknown 31-36 F Ordering Physician UnknownLaboratory Mpykynh4377-64-07 07:58:00Identifier 82772- 6 Result Time 2018-08-08 07:58:00Unknown Test Item Value Reference Range Comments Unknown (test code = 785-6) 31 pg Unknown 27-31 F Ordering Physician UnknownLaboratory Qqacbdk7222-85-02 07:58:00Identifier 06362- 6 Result Time 2018-08-08 07:58:00Unknown Test Item Value Reference Range Comments Unknown (test code = 736-9) 9.4 % Unknown Unknown F Ordering Physician UnknownLaboratory Rjiibzl6067-87-25 07:58:00Identifier 58591- 6 Result Time 2018-08-08 07:58:00Unknown Test Item Value Reference Range Comments Unknown (test code = 718-7) 12.1 g/dL Unknown 14.0-18.0 F Ordering Physician UnknownLaboratory Nqukhtx1418-27-30 07:58:00Identifier 34088- 6 Result Time 2018-08-08 07:58:00Unknown Test Item Value Reference Range Comments Unknown (test code = 4544-3) 36 % Unknown 42-52 F Ordering Physician UnknownLaboratory Lmryuqc7321-84-38 07:58:00Identifier 15404- 6 Result Time 2018-08-08 07:58:00Unknown Test Item Value Reference Range Comments Unknown (test code = 713-8) 0.9 % Unknown Unknown F Ordering Physician UnknownLaboratory Xqnemux5807-06-29 07:58:00Identifier 69554- 6 Result Time 2018-08-08 07:58:00Unknown Test Item Value Reference Range Comments Unknown (test code = 706-2) 0.3 % Unknown Unknown F Ordering Physician UnknownLaboratory Pfbhcnr5952-63-40 07:58:00Identifier 38751- 6 Result Time 2018-08-08 07:58:00Unknown Test Item Value Reference Range Comments Unknown (test code = CJP8237) 7.6 10^3/ul Unknown 1.5-7.7 F Ordering Physician UnknownLaboratory Ynojiav2542-02-99 07:58:00Identifier 10729- 6 Result Time 2018-08-08 07:58:00Unknown Test Item Value Reference Range Comments Unknown (test code = 742-7) 1.5 10^3/ul Unknown 0-0.8 F Ordering Physician UnknownLaboratory Aexngol4852-81-29 07:58:00Identifier 69432- 6 Result Time 2018-08-08 07:58:00Unknown Test Item Value Reference Range Comments Unknown (test code = 731-0) 1.0 10^3/ul Unknown 1.0-4.8 F Ordering Physician UnknownLaboratory Mtlpaln6741-03-19 07:58:00Identifier 68642- 6 Result Time 2018-08-08 07:58:00Unknown Test Item Value Reference Range Comments Unknown (test code = 711-2) 0.1 10^3/ul Unknown 0-0.6 F Ordering Physician UnknownLaboratory Qopzzjx0839-15-99 07:58:00Identifier 26402- 6 Result Time 2018-08-08 07:58:00Unknown Test Item Value Reference Range Comments Unknown (test code = 704-7) 0.0 10^3/ul Unknown 0-0.2 F Ordering Physician UnknownLaboratory Fsjmrrp4006-07-65 15:00:00Identifier 95228- 6 Result Time 2018-08-07 15:00:00Unknown Test Item Value Reference Range Comments Unknown (test code = 2951-2) 142 mmol/L Unknown 135-145 F Ordering Physician UnknownLaboratory Jxpyujd5030-92-46 15:00:00Identifier 13900- 6 Result Time 2018-08-07 15:00:00Unknown Test Item Value Reference Range Comments Unknown (test code = 2823-3) 3.6 mmol/L Unknown 3.5-5.0 F Ordering Physician UnknownLaboratory Ydlxwzb1156-18-54 15:00:00Identifier 95682- 6 Result Time 2018-08-07 15:00:00Unknown Test Item Value Reference Range Comments Unknown (test code = 2345-7) 203 mg/dL Unknown 70-100 F Ordering Physician UnknownLaboratory Lsvtpup9798-48-45 15:00:00Identifier 60027- 6 Result Time 2018-08-07 15:00:00Unknown Test Item Value Reference Range Comments Unknown (test code = 02099-2) 77.6 Unknown Unknown F Ordering Physician UnknownLaboratory Vptlnlt1041-29-66 15:00:00Identifier 05006- 6 Result Time 2018-08-07 15:00:00Unknown Test Item Value Reference Range Comments Unknown (test code = NullTestCode) 93.9 Unknown Unknown F Ordering Physician UnknownLaboratory Utsgghv0290-91-30 15:00:00Identifier 17386- 6 Result Time 2018-08-07 15:00:00Unknown Test Item Value Reference Range Comments Unknown (test code = 2160-0) 0.92 mg/dL Unknown 0.67-1.17 F Ordering Physician UnknownLaboratory Enrthrm0753-75-50 15:00:00Identifier 83696- 6 Result Time 2018-08-07 15:00:00Unknown Test Item Value Reference Range Comments Unknown (test code = 2075-0) 110 mmol/L Unknown 101-111 F Ordering Physician UnknownLaboratory Ifzaedn6972-96-62 15:00:00Identifier 18654- 6 Result Time 2018-08-07 15:00:00Unknown Test Item Value Reference Range Comments Unknown (test code = 2028-9) 28 mmol/L Unknown 22-32 F Ordering Physician UnknownLaboratory Onrunrr4617-14-11 15:00:00Identifier 52949- 6 Result Time 2018-08-07 15:00:00Unknown Test Item Value Reference Range Comments Unknown (test code = 51880-9) 9.6 mg/dL Unknown 8.6-10.3 F Ordering Physician UnknownLaboratory Wnqfziq4457-97-82 15:00:00Identifier 94136- 6 Result Time 2018-08-07 15:00:00Unknown Test Item Value Reference Range Comments Unknown (test code = 3094-0) 24 mg/dL Unknown 6-24 F Ordering Physician UnknownLaboratory Rseqlfp5652-92-73 15:00:00Identifier 77548- 6 Result Time 2018-08-07 15:00:00Unknown Test Item Value Reference Range Comments Unknown (test code = 3097-3) 26.1 Unknown 8-20 F Ordering Physician UnknownLaboratory Zajybdi4575-08-85 15:00:00Identifier 22574- 6 Result Time 2018-08-07 15:00:00Unknown Test Item Value Reference Range Comments Unknown (test code = 44372-7) 4 mmol/L Unknown 2-11 F Ordering Physician UnknownLaboratory Nfujtvm6954-08-47 06:00:00Identifier 90562- 6 Result Time 2018-08-05 06:00:00Unknown Test Item Value Reference Range Comments Unknown (test code = 2744-1) 7.37 Unknown 7.35-7.45 F Ordering Physician UnknownLaboratory Ksvrbkq5866-08-16 06:00:00Identifier 61064- 6 Result Time 2018-08-05 06:00:00Unknown Test Item Value Reference Range Comments Unknown (test code = 13273-9) 84 mmHg Unknown 80-100 F Ordering Physician UnknownLaboratory Uhcikhy0563-64-50 06:00:00Identifier 60074- 6 Result Time 2018-08-05 06:00:00Unknown Test Item Value Reference Range Comments Unknown (test code = NullTestCode) 36 mmHg Unknown 35-45 F Ordering Physician UnknownLaboratory Qyjmpci3309-86-03 06:00:00Identifier 88836- 6 Result Time 2018-08-05 06:00:00Unknown Test Item Value Reference Range Comments Unknown (test code = 2708-6) 98.4 % Unknown 94.0-98.0 F Ordering Physician UnknownLaboratory Sndrvlu4462-56-72 06:00:00Identifier 66197- 6 Result Time 2018-08-05 06:00:00Unknown Test Item Value Reference Range Comments Unknown (test code = 1960-4) 21.8 mmol/L Unknown 19-31 F Ordering Physician UnknownLaboratory Tphvsao8244-50-84 06:00:00Identifier 97446- 6 Result Time 2018-08-05 06:00:00Unknown Test Item Value Reference Range Comments Unknown (test code = 1925-7) -3.9 mmol/L Unknown -2.0-2.0 F Ordering Physician UnknownLaboratory Svxdbfe2151-36-20 06:00:00Identifier 66542- 6 Result Time 2018-08-05 06:00:00Unknown Test Item Value Reference Range Comments Unknown (test code = NullTestCode) 32 Unknown Unknown F Ordering Physician UnknownLaboratory Lukdkkd7852-72-76 04:35:00Identifier 83725- 6 Result Time 2018-08-05 04:35:00Unknown Test Item Value Reference Range Comments Unknown (test code = 18245-3) 1.7 mg/dL Unknown 1.9-2.7 F Ordering Physician UnknownLaboratory Pmgbmtb2588-75-29 07:25:00Identifier 24651- 6 Result Time 2018-08-04 07:25:00Unknown Test Item Value Reference Range Comments Unknown (test code = NullTestCode) 6.0 Unknown 5-9 F Ordering Physician UnknownLaboratory Vskvlqw3308-99-51 07:25:00Identifier 00525- 6 Result Time 2018-08-04 07:25:00Unknown Test Item Value Reference Range Comments Unknown (test code = 89640-5) 1.026 Unknown 1.010-1.030 F Ordering Physician UnknownLaboratory Nubcabn4064-55-16 07:14:00Identifier 55808- 6 Result Time 2018-08-04 07:14:00Unknown Test Item Value Reference Range Comments Unknown (test code = 5643-2) Unknown 0-10 F Ordering Physician UnknownLaboratory Njxgjff4255-19-26 07:14:00Identifier 01295- 6 Result Time 2018-08-04 07:14:00Unknown Test Item Value Reference Range Comments Unknown (test code = 64783-2) 0.03 ng/mL Unknown Unknown F Ordering Physician UnknownLaboratory Oewglsx7078-63-75 07:14:00Identifier 18883- 6 Result Time 2018-08-04 07:14:00Unknown Test Item Value Reference Range Comments Unknown (test code = 2885-2) 5.6 g/dL Unknown 6.4-8.9 F Ordering Physician UnknownLaboratory Ilhyqpi6159-85-63 07:14:00Identifier 30222- 6 Result Time 2018-08-04 07:14:00Unknown Test Item Value Reference Range Comments Unknown (test code = 1975-2) 1.20 mg/dL Unknown 0.2-1.0 F Ordering Physician UnknownLaboratory Ntulkxo9767-12-76 07:14:00Identifier 88532- 6 Result Time 2018-08-04 07:14:00Unknown Test Item Value Reference Range Comments Unknown (test code = NullTestCode) 2.5 g/dL Unknown 2-4 F Ordering Physician UnknownLaboratory Gnisqfd2305-82-05 07:14:00Identifier 06534- 6 Result Time 2018-08-04 07:14:00Unknown Test Item Value Reference Range Comments Unknown (test code = 1920-8) 36 U/L Unknown 13-39 F Ordering Physician UnknownLaboratory Zxsosld3051-44-97 07:14:00Identifier 53009- 6 Result Time 2018-08-04 07:14:00Unknown Test Item Value Reference Range Comments Unknown (test code = 6768-6) 76 U/L Unknown 34-104 F Ordering Physician UnknownLaboratory Ukrovkk2210-60-55 07:14:00Identifier 23272- 6 Result Time 2018-08-04 07:14:00Unknown Test Item Value Reference Range Comments Unknown (test code = 1759-0) 1.2 Unknown 1-3 F Ordering Physician UnknownLaboratory Inywoqd5677-42-23 07:14:00Identifier 22380- 6 Result Time 2018-08-04 07:14:00Unknown Test Item Value Reference Range Comments Unknown (test code = 21051-0) 3.1 g/dL Unknown 3.2-5.2 F Ordering Physician UnknownLaboratory Crfmjud5677-62-40 07:14:00Identifier 12756- 6 Result Time 2018-08-04 07:14:00Unknown Test Item Value Reference Range Comments Unknown (test code = 1742-6) 18 U/L Unknown 7-52 F Ordering Physician UnknownLaboratory Lntxrku5596-81-90 07:14:00Identifier 28386- 6 Result Time 2018-08-04 07:14:00Unknown Test Item Value Reference Range Comments Unknown (test code = 2524-7) 1.4 mmol/L Unknown 0.5-2.0 F Ordering Physician Unknown
--- OUTSIDE RECORDS SUMMARY | 2019-01-19 11:08 | XMS REPORT | Summary of Care ---
:1930 Author Organization [facility] Address [address] [place] [address] Care Team Providers Name Role Phone Kaley Cool Primary Care Provider Reason for Visit Reason Comments Follow Up 2 month follow up Encounter Details Date Type Department Care Team Description 01/07/2019 Office Visit [place] [facility] Kaley Cool MD Venous stasis ulcer, unspecified site, unspecified ulcer stage, unspecified whether varicose veins present (HCC) (Primary Dx); Medicine [address] Cellulitis of right lower extremity; [address] [place] [address] S/P AVR (aortic valve replacement); [place] [address] Essential hypertension [phone] Allergies No Known Allergiesdocumented as of this encounter (statuses as of 01/07/2019) Medications Medication Sig Dispensed Refills Start Date End Date Status daily vitamin Take 1 Tab by 0 Active Oral Tab mouth DAILY. Aspirin 81 MG Take 1 Tab by 30 Tab 0 11/12/2014 Active Oral mouth DAILY. TabIndications: S/P AVR (aortic valve replacement) Spacer/Aero-Holdi 1 Device by 1 Each 1 04/01/2015 Active ng Chambers Does Does not apply not apply Device route DIRECTED. albuterol HFA Take 2 Puffs by 1 Inhaler 5 04/25/2016 Active (VENTOLIN) 108 inhalation (90 BASE) MCG/ACT EVERY SIX HOURS Inhalation Aero NEEDED Soln (Shortness of breath, cough). fluticasone [place] 2 Sprays 1 Bottle 3 12/14/2017 Active (FLONASE) 50 in nose DAILY. MCG/ACT Nasal SuspensionIndicat ions: Nasal congestion Tamsulosin HCl TAKE 1 CAPSULE 90 Cap 3 01/29/2018 Active (FLOMAX) 0.4 MG BY MOUTH DAILY Oral Cap atorvastatin TAKE 1 TABLET 90 Tab 3 04/02/2018 Active (LIPITOR) 10 MG BY MOUTH DAILY Oral TabIndications: Essential hypertension warfarin Take 1 Tab by 90 Tab 3 01/07/2019 Active (COUMADIN) 2.5 MG mouth DAILY. As Oral directed which TabIndications: is 5mg S/P AVR Mon/Wed/Fri. 2.5mg remaining days of week For use with 5mg tabs warfarin Take 1 Tab by 90 Tab 3 01/07/2019 Active (COUMADIN) 5 MG mouth DAILY. As Oral directed which TabIndications: is 5mg S/P AVR Mon/Wed/Mon. 2.5mg remaining days of week. For use with 2.5mg tabs cephalexin Take 1 Cap by 28 Cap 0 01/07/2019 Active (KEFLEX) 500 MG mouth THREE Oral Cap TIMES DAILY. warfarin Take 1 Tab by 90 Tab 3 10/29/2018 Discontinued (COUMADIN) 5 MG mouth DAILY. As 9 (Dose Oral directed which Adjustment) TabIndications: is 5mg Mon and S/P AVR Elena. 2.5mg remaining days of week. For use with 2.5mg tabs warfarin Take 1 Tab by 90 Tab 3 12/19/2018 Discontinued (COUMADIN) 2.5 MG mouth DAILY. As 9 (Dose Oral directed which Adjustment) TabIndications: is 5mg Mon and S/P AVR Elena. 2.5mg remaining days of week For use with 5mg tabs Hospital, Clinic, or Other Ordered Dose Route Frequency Start Date End Date Status Facility Administered Medication cephalexin (KEFLEX) oral 250 mg PO X1 01/07/2019 01/14/2019 Active suspension 250 mg documented as of this encounter (statuses as of 01/07/2019) Active Problems Problem Noted Date Right elbow pain 04/12/2016 Closed fracture of head of right radius 04/12/2016 BMI 30.0-30.9,adult 10/05/2011 Overview: This patient's BMI has been calculated and is above average, and BMI management plan is completed. 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 Duration: Lifetime Additional factors influencing anticoagulation: No documented previous history of atrial fib, prior thromboembolism, LV dysfunction, hypercoagulable state. Tamsulosin can create unpredictable interaction with warfarin Updated Referral 06/2011,06/12/12, 10/2013, 11/2014, 01/2016, 03/2017, 05/2018 AntiCoag Orders 08/2012, 10/10/13, 11/12/14, 02/02/16, 03/24/17, 05/15/18 Heart valve replaced 09/15/2006 Overview: [place] aortic valve- Echo 2006 No cad documented as of this encounter (statuses as of 01/07/2019) Resolved Problems Problem Noted Date Resolved Date Encounter for therapeutic drug monitoring 09/22/2009 05/03/2010 documented as of this encounter (statuses as of 01/07/2019) Immunizations Name Administration Dates Next Due Influenza (IM) Preservative Free 11/23/2012, 10/19/2011 Influenza Vaccine 65 Yrs + 11/07/2018 Influenza Vaccine High Dose 11/13/2017, 12/10/2016, 12/28/2015, 12/22/2014, 12/17/2013 Influenza Vaccine Whole 12/23/2008, 12/18/2007 PNEUMOCOCCAL POLYSACCHARIDE VACCINE 02/04/2009 Pneumococcal Conjugate(13 Valent) 10/20/2014 TDAP Vaccine 06/15/2018, 01/30/2008 documented as of this encounter Social History Tobacco Use Types Packs/Day Years Used Date Never Smoker Smokeless Tobacco: Never Used Alcohol Use Drinks/Week oz/Week Comments Yes Sex Assigned at Date Recorded Not on file Job Start Date Occupation Industry Not on file Not on file Not on file Travel History Travel Start Travel End No recent travel history available. documented as of this encounter Last Filed Vital Signs Vital Sign Reading Time Taken Comments Blood Pressure 124/64 01/07/2019 9:55 AM EST Pulse 46 01/07/2019 9:55 AM EST Temperature - - Respiratory Rate - - Oxygen Saturation 97% 01/07/2019 9:55 AM EST Inhaled Oxygen Concentration - - Weight 69.8 kg (153 lb 12.8 oz) 01/07/2019 9:55 AM EST Height 162.6 cm (5' 4") 01/07/2019 9:55 AM EST Body Mass Index 26.4 01/07/2019 9:55 AM EST documented in this encounter Progress Notes Kaley Cool MD - 01/07/2019 9:40 AM EST NAME:Derrell Cristobal 1930: 1930 ENC Date: 01/07/2019 CC: Chief Complaint Patient presents with Follow Up 2 month follow up Derrell Cristobal is a 88-y.o. male Hospitalized after fall - noted to have venous stasis ulcer of the right leg Furosemide was added to regimen to relieve some of the leg swelling- now off completely - Current Outpatient Medications Medication Sig albuterol HFA (VENTOLIN) 108 (90 BASE) MCG/ACT Inhalation Aero Soln Take 2 Puffs by inhalation EVERY SIX HOURS NEEDED (Shortness of breath, cough). Aspirin 81 MG Oral Tab Take 1 Tab by mouth DAILY. atorvastatin (LIPITOR) 10 MG Oral Tab TAKE 1 TABLET BY MOUTH DAILY cephalexin (KEFLEX) 500 MG Oral Cap Take 1 Cap by mouth THREE TIMES DAILY. daily vitamin Oral Tab Take 1 Tab by mouth DAILY. fluticasone (FLONASE) 50 MCG/ACT Nasal Suspension [place] 2 Sprays in nose DAILY. Spacer/Aero-Holding Chambers Does not apply Device 1 Device by Does not apply route DIRECTED. Tamsulosin HCl (FLOMAX) 0.4 MG Oral Cap TAKE 1 CAPSULE BY MOUTH DAILY warfarin (COUMADIN) 2.5 MG Oral Tab Take 1 Tab by mouth DAILY. As directed which is 5mg Mon/Wed/Fri. 2.5mg remaining days of week For use with 5mg tabs warfarin (COUMADIN) 5 MG Oral Tab Take 1 Tab by mouth DAILY. As directed which is 5mg Mon/Wed/Fri. 2.5mg remaining days of week. For use with 2.5mg tabs Current Facility-Administered Medications Medication cephalexin (KEFLEX) oral suspension 250 mg Patient Active Problem List Diagnosis Date Noted Right elbow pain 04/12/2016 Closed fracture of head of right radius 04/12/2016 BMI 30.0-30.9,adult 10/05/2011 This patient's BMI has been calculated and is above average, and BMI management plan is completed. General patient education discussion including: obesity-related excess mortality Lipid disorder 01/30/2008 intermediate current use of anticoagulant therapy 03/20/2007 09/16/13: Managed by: Eduard [facility] Referring Provider: Jf Indication: [place] AVR Target Range: 2.0-3.0 per 2013 ACS Orders. Duration: Lifetime Additional factors influencing anticoagulation: No documented previous history of atrial fib, prior thromboembolism, LV dysfunction, hypercoagulablestate. Tamsulosin can create unpredictable interaction with warfarin Updated Referral 06/2011,06/12/12, 10/2013, 11/2014, 01/2016, 03/2017, 05/2018 AntiCoag Orders 08/2012, 10/10/13, 11/12/14, 02/02/16, 03/24/17, 05/15/18 Heart valve replaced 09/15/2006 [place] aortic valve- Echo 2006 No cad Family History Problem Relation Age of Onset Heart Disease Father No cardiopulmonary symptoms No upper or lower GI complaints No urinary tract symptoms. No bruising/ bleeding. No neurological complaints . No insomnia.+ . Social History Tobacco Use Smoking status: Never Smoker Smokeless tobacco: Never Used Substance Use Topics Alcohol use: Yes Drug use: No OBJECTIVE: BP 124/64 | Pulse (!) 46 | Ht 5' 4" (1.626 m) | Wt 153 lb 12.8 oz (69.8 kg) | SpO2 97% | BMI 26.40 kg/m . Heent neg Neck no JVD, thyromegaly or bruit Lungs Clear CV rrr Abd soft, nontender, no organomegaly Ext 2+ edema ; bilateral pigmentaton - redness of the right leg up to mild pretibia Neuro: intellect intact ; motor including gait unremarkable A/P ICD-9-CM ICD-10-CM 1. Venous stasis ulcer, unspecified site, unspecified ulcer stage, unspecified whether varicose veins present (HCC) 454.0 I83.009 L97.909 2. Cellulitis of right lower extremity 682.6 L03.115 3. S/P AVR (aortic valve replacement) V43.3 Z95.2 4. Essential hypertension 401.9 I10 There are no Patient Instructions on file for this visit. AUTHOR: Kaley Cool MD 10:23 01/07/2019 documented in this encounter Plan of Treatment Date Type Specialty Care Team Description 01/21/2019 AntiCoag Anticoagulation 11/19/2019 Orders Only Cardiology 11/27/2019 Office Visit Cardiology Darin Cohen MD [address] [place] [address] [phone] Health Maintenance Due Date Last Done Comments HIV SCREENING 1945 [facility] IMMUNIZATION SERIES 12/03/1979 (1 of 2) MEDICARE ANNUAL WELLNESS 10/21/2015 10/20/2014, 08/05/2013 VISIT DEPRESSION SCREENING 01/08/2020 01/07/2019 FALL RISK ASSESSMENT 01/08/2020 01/07/2019, 01/07/2019 LIPID DISORDER SCREENING 04/02/2023 04/02/2018, 05/03/2017, 02/03/2016, Additional history exists PNEUMOCOCCAL 65+YRS Completed 10/20/2014, 02/04/2009 INFLUENZA VACCINE Completed 11/07/2018, 11/13/2017, 12/10/2016, Additional history exists HPV IMMUNIZATION SERIES Aged Out No longer eligible based on patient's age to complete this topic MENINGOCOCCAL VACCINE IMM Aged Out No longer eligible based on patient's age to complete this topic documented as of this encounter Results Not on filedocumented in this encounter Visit Diagnoses Diagnosis Venous stasis ulcer, unspecified site, unspecified ulcer stage, unspecified whether varicose veins present (HCC) - Primary Cellulitis of right lower extremity Cellulitis and abscess of leg, except foot S/P AVR (aortic valve replacement) Heart valve replaced by other means Essential hypertension Unspecified essential hypertension documented in this encounter Insurance Payer Benefit Plan / Subscriber ID Effective Dates Phone Address Type Group MEDICARE MEDICARE PART A xxxxxxxxxxx 1994-Present Medicare & B [employer] COMMERCIAL A[employer] xxxxxxxxxx 2002-Present [employer] (Home) [address] [phone] [place], [place] (Work) [id number] documented as of this encounter Advance Directives Type Date 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
--- OUTSIDE RECORDS SUMMARY | 2019-01-19 11:08 | XMS REPORT ---
:1930 Author Organization [facility] Care Team Providers Name Role Phone Unavailable [...] Result Comments Laboratory Studies 2018-08-09 06:32:00 Identifier [id number] Result Time Unknown 2018-08-09 06:32:00 Test Item Value Reference Range Comments Unknown (test code = 07166-9) 3.61 Unknown 0.82-1.09 F Ordering Physician UnknownLaboratory Dbagpps7720-43-30 07:58:00Identifier [id number] 6 Result Time 2018-08-08 07:58:00Unknown Test Item Value Reference Range Comments Unknown (test code = 99265-5) 10.2 10^3/uL Unknown 3.5-10.8 F Ordering Physician UnknownLaboratory Lkiblmh6298-06-29 07:58:00Identifier [id number]- 6 Result Time 2018-08-08 07:58:00Unknown Test Item Value Reference Range Comments Unknown (test code = 788-0) 14 % Unknown 10.5-15 F Ordering Physician UnknownLaboratory Pjiclek1648-47-12 07:58:00Identifier [id number]- 6 Result Time 2018-08-08 07:58:00Unknown Test Item Value Reference Range Comments Unknown (test code = 789-8) 3.91 10^6 /uL Unknown 4.18-5.48 F Ordering Physician UnknownLaboratory Rztbjfg3933-51-62 07:58:00Identifier [id number]- 6 Result Time 2018-08-08 07:58:00Unknown Test Item Value Reference Range Comments Unknown (test code = 777-3) 192 10^3/uL Unknown 150-450 F Ordering Physician UnknownLaboratory Aqmithc2856-64-06 07:58:00Identifier [id number]- 6 Result Time 2018-08-08 07:58:00Unknown Test Item Value Reference Range Comments Unknown (test code = 11500-0) 0.1 Unknown Unknown F Ordering Physician UnknownLaboratory Pvbhbzm0436-55-11 07:58:00Identifier [id number]- 6 Result Time 2018-08-08 07:58:00Unknown Test Item Value Reference Range Comments Unknown (test code = 771-6) 0.0 10^3/ul Unknown Unknown F Ordering Physician UnknownLaboratory Prgpbky1520-73-21 07:58:00Identifier [id number]- 6 Result Time 2018-08-08 07:58:00Unknown Test Item Value Reference Range Comments Unknown (test code = 770-8) 74.5 % Unknown Unknown F Ordering Physician UnknownLaboratory Mxaapub6503-67-69 07:58:00Identifier [id number]- 6 Result Time 2018-08-08 07:58:00Unknown Test Item Value Reference Range Comments Unknown (test code = 5905-5) 14.9 % Unknown Unknown F Ordering Physician UnknownLaboratory Xevkptv2781-18-23 07:58:00Identifier [id number]- 6 Result Time 2018-08-08 07:58:00Unknown Test Item Value Reference Range Comments Unknown (test code = 41934-6) 8.3 fL Unknown 7.4-10.4 F Ordering Physician UnknownLaboratory Oglhtvg7808-46-08 07:58:00Identifier 73387- 6 Result Time 2018-08-08 07:58:00Unknown Test Item Value Reference Range Comments Unknown (test code = 787-2) 92 fL Unknown 80-94 F Ordering Physician UnknownLaboratory Vlxxdxd7495-15-35 07:58:00Identifier [id number]- 6 Result Time 2018-08-08 07:58:00Unknown Test Item Value Reference Range Comments Unknown (test code = 786-4) 34 g/dL Unknown 31-36 F Ordering Physician UnknownLaboratory Qaxvlwr4315-98-90 07:58:00Identifier 67832- 6 Result Time 2018-08-08 07:58:00Unknown Test Item Value Reference Range Comments Unknown (test code = 785-6) 31 pg Unknown 27-31 F Ordering Physician UnknownLaboratory Vmlvjyb5893-14-87 07:58:00Identifier 09245- 6 Result Time 2018-08-08 07:58:00Unknown Test Item Value Reference Range Comments Unknown (test code = 736-9) 9.4 % Unknown Unknown F Ordering Physician UnknownLaboratory Bnbcvhh6644-19-02 07:58:00Identifier 56459- 6 Result Time 2018-08-08 07:58:00Unknown Test Item Value Reference Range Comments Unknown (test code = 718-7) 12.1 g/dL Unknown 14.0-18.0 F Ordering Physician UnknownLaboratory Xtylhln6641-44-11 07:58:00Identifier [id number]- 6 Result Time 2018-08-08 07:58:00Unknown Test Item Value Reference Range Comments Unknown (test code = 4544-3) 36 % Unknown 42-52 F Ordering Physician UnknownLaboratory Xyobqgl5567-42-76 07:58:00Identifier 04667- 6 Result Time 2018-08-08 07:58:00Unknown Test Item Value Reference Range Comments Unknown (test code = 713-8) 0.9 % Unknown Unknown F Ordering Physician UnknownLaboratory Dxkeidv6561-04-80 07:58:00Identifier 66589- 6 Result Time 2018-08-08 07:58:00Unknown Test Item Value Reference Range Comments Unknown (test code = 706-2) 0.3 % Unknown Unknown F Ordering Physician UnknownLaboratory Oftxwec1868-84-70 07:58:00Identifier 18966- 6 Result Time 2018-08-08 07:58:00Unknown Test Item Value Reference Range Comments Unknown (test code = QNO0571) 7.6 10^3/ul Unknown 1.5-7.7 F Ordering Physician UnknownLaboratory Chanakj2164-79-71 07:58:00Identifier [id number]- 6 Result Time 2018-08-08 07:58:00Unknown Test Item Value Reference Range Comments Unknown (test code = 742-7) 1.5 10^3/ul Unknown 0-0.8 F Ordering Physician UnknownLaboratory Dekhult5893-20-03 07:58:00Identifier 99205- 6 Result Time 2018-08-08 07:58:00Unknown Test Item Value Reference Range Comments Unknown (test code = 731-0) 1.0 10^3/ul Unknown 1.0-4.8 F Ordering Physician UnknownLaboratory Zonijlx8870-49-72 07:58:00Identifier [id number]- 6 Result Time 2018-08-08 07:58:00Unknown Test Item Value Reference Range Comments Unknown (test code = 711-2) 0.1 10^3/ul Unknown 0-0.6 F Ordering Physician UnknownLaboratory Xuzxqcb8832-31-70 07:58:00Identifier 58457- 6 Result Time 2018-08-08 07:58:00Unknown Test Item Value Reference Range Comments Unknown (test code = 704-7) 0.0 10^3/ul Unknown 0-0.2 F Ordering Physician UnknownLaboratory Qsvknyf7284-35-85 15:00:00Identifier 14555- 6 Result Time 2018-08-07 15:00:00Unknown Test Item Value Reference Range Comments Unknown (test code = 2951-2) 142 mmol/L Unknown 135-145 F Ordering Physician UnknownLaboratory Qvtqluo5842-53-01 15:00:00Identifier [id number]- 6 Result Time 2018-08-07 15:00:00Unknown Test Item Value Reference Range Comments Unknown (test code = 2823-3) 3.6 mmol/L Unknown 3.5-5.0 F Ordering Physician UnknownLaboratory Yujevep5897-89-51 15:00:00Identifier 45734- 6 Result Time 2018-08-07 15:00:00Unknown Test Item Value Reference Range Comments Unknown (test code = 2345-7) 203 mg/dL Unknown 70-100 F Ordering Physician UnknownLaboratory Onfvgep3077-52-00 15:00:00Identifier [id number]- 6 Result Time 2018-08-07 15:00:00Unknown Test Item Value Reference Range Comments Unknown (test code = 72561-5) 77.6 Unknown Unknown F Ordering Physician UnknownLaboratory Papkovn2452-79-60 15:00:00Identifier 33597- 6 Result Time 2018-08-07 15:00:00Unknown Test Item Value Reference Range Comments Unknown (test code = NullTestCode) 93.9 Unknown Unknown F Ordering Physician UnknownLaboratory Weisdvn2503-88-15 15:00:00Identifier 67211- 6 Result Time 2018-08-07 15:00:00Unknown Test Item Value Reference Range Comments Unknown (test code = 2160-0) 0.92 mg/dL Unknown 0.67-1.17 F Ordering Physician UnknownLaboratory Cixmjto6911-96-09 15:00:00Identifier [id number]- 6 Result Time 2018-08-07 15:00:00Unknown Test Item Value Reference Range Comments Unknown (test code = 2075-0) 110 mmol/L Unknown 101-111 F Ordering Physician UnknownLaboratory Arioqiw6012-04-92 15:00:00Identifier [id number]- 6 Result Time 2018-08-07 15:00:00Unknown Test Item Value Reference Range Comments Unknown (test code = 2028-9) 28 mmol/L Unknown 22-32 F Ordering Physician UnknownLaboratory Ygwxzpd7212-86-32 15:00:00Identifier 15436- 6 Result Time 2018-08-07 15:00:00Unknown Test Item Value Reference Range Comments Unknown (test code = 56658-7) 9.6 mg/dL Unknown 8.6-10.3 F Ordering Physician UnknownLaboratory Wsbauxf3822-49-98 15:00:00Identifier 69076- 6 Result Time 2018-08-07 15:00:00Unknown Test Item Value Reference Range Comments Unknown (test code = 3094-0) 24 mg/dL Unknown 6-24 F Ordering Physician UnknownLaboratory Nllqpwt2955-44-39 15:00:00Identifier 90351- 6 Result Time 2018-08-07 15:00:00Unknown Test Item Value Reference Range Comments Unknown (test code = 3097-3) 26.1 Unknown 8-20 F Ordering Physician UnknownLaboratory Cdhvdcz4957-49-95 15:00:00Identifier 22710- 6 Result Time 2018-08-07 15:00:00Unknown Test Item Value Reference Range Comments Unknown (test code = 98887-0) 4 mmol/L Unknown 2-11 F Ordering Physician UnknownLaboratory Vfryrei3438-91-27 06:00:00Identifier 36098- 6 Result Time 2018-08-05 06:00:00Unknown Test Item Value Reference Range Comments Unknown (test code = 2744-1) 7.37 Unknown 7.35-7.45 F Ordering Physician UnknownLaboratory Xzytitt9130-16-32 06:00:00Identifier 19809- 6 Result Time 2018-08-05 06:00:00Unknown Test Item Value Reference Range Comments Unknown (test code = 60503-1) 84 mmHg Unknown 80-100 F Ordering Physician UnknownLaboratory Ltranbl6323-63-15 06:00:00Identifier 72088- 6 Result Time 2018-08-05 06:00:00Unknown Test Item Value Reference Range Comments Unknown (test code = NullTestCode) 36 mmHg Unknown 35-45 F Ordering Physician UnknownLaboratory Pemouhx0398-32-03 06:00:00Identifier 40246- 6 Result Time 2018-08-05 06:00:00Unknown Test Item Value Reference Range Comments Unknown (test code = 2708-6) 98.4 % Unknown 94.0-98.0 F Ordering Physician UnknownLaboratory Xkpiqhd9823-58-59 06:00:00Identifier 77529- 6 Result Time 2018-08-05 06:00:00Unknown Test Item Value Reference Range Comments Unknown (test code = 1960-4) 21.8 mmol/L Unknown 19-31 F Ordering Physician UnknownLaboratory Gsrharg3395-88-39 06:00:00Identifier 93508- 6 Result Time 2018-08-05 06:00:00Unknown Test Item Value Reference Range Comments Unknown (test code = 1925-7) -3.9 mmol/L Unknown -2.0-2.0 F Ordering Physician UnknownLaboratory Uhpujox9577-27-88 06:00:00Identifier 87095- 6 Result Time 2018-08-05 06:00:00Unknown Test Item Value Reference Range Comments Unknown (test code = NullTestCode) 32 Unknown Unknown F Ordering Physician UnknownLaboratory Dthwusg9640-94-21 04:35:00Identifier 80417- 6 Result Time 2018-08-05 04:35:00Unknown Test Item Value Reference Range Comments Unknown (test code = 92990-6) 1.7 mg/dL Unknown 1.9-2.7 F Ordering Physician UnknownLaboratory Pmaaxjb2384-15-55 07:25:00Identifier [id number]- 6 Result Time 2018-08-04 07:25:00Unknown Test Item Value Reference Range Comments Unknown (test code = NullTestCode) 6.0 Unknown 5-9 F Ordering Physician UnknownLaboratory Xunfqav1791-85-51 07:25:00Identifier [id number]- 6 Result Time 2018-08-04 07:25:00Unknown Test Item Value Reference Range Comments Unknown (test code = 49338-5) 1.026 Unknown 1.010-1.030 F Ordering Physician UnknownLaboratory Ohfvxxy1151-17-65 07:14:00Identifier 16573- 6 Result Time 2018-08-04 07:14:00Unknown Test Item Value Reference Range Comments Unknown (test code = 5643-2) Unknown 0-10 F Ordering Physician UnknownLaboratory Evtzjiw4602-65-57 07:14:00Identifier 21367- 6 Result Time 2018-08-04 07:14:00Unknown Test Item Value Reference Range Comments Unknown (test code = 29724-4) 0.03 ng/mL Unknown Unknown F Ordering Physician UnknownLaboratory Wngxych3757-71-51 07:14:00Identifier 61389- 6 Result Time 2018-08-04 07:14:00Unknown Test Item Value Reference Range Comments Unknown (test code = 2885-2) 5.6 g/dL Unknown 6.4-8.9 F Ordering Physician UnknownLaboratory Ckauhzw1196-75-51 07:14:00Identifier 73833- 6 Result Time 2018-08-04 07:14:00Unknown Test Item Value Reference Range Comments Unknown (test code = 1975-2) 1.20 mg/dL Unknown 0.2-1.0 F Ordering Physician UnknownLaboratory Eskrgex5131-09-07 07:14:00Identifier 60907- 6 Result Time 2018-08-04 07:14:00Unknown Test Item Value Reference Range Comments Unknown (test code = NullTestCode) 2.5 g/dL Unknown 2-4 F Ordering Physician UnknownLaboratory Vrtulen0833-46-66 07:14:00Identifier [id number]- 6 Result Time 2018-08-04 07:14:00Unknown Test Item Value Reference Range Comments Unknown (test code = 1920-8) 36 U/L Unknown 13-39 F Ordering Physician UnknownLaboratory Ayuqpeq3511-10-37 07:14:00Identifier 14591- 6 Result Time 2018-08-04 07:14:00Unknown Test Item Value Reference Range Comments Unknown (test code = 6768-6) 76 U/L Unknown 34-104 F Ordering Physician UnknownLaboratory Uyddcox2394-65-43 07:14:00Identifier 66949- 6 Result Time 2018-08-04 07:14:00Unknown Test Item Value Reference Range Comments Unknown (test code = 1759-0) 1.2 Unknown 1-3 F Ordering Physician UnknownLaboratory Uzqyxmh6635-78-08 07:14:00Identifier 79927- 6 Result Time 2018-08-04 07:14:00Unknown Test Item Value Reference Range Comments Unknown (test code = 73580-3) 3.1 g/dL Unknown 3.2-5.2 F Ordering Physician UnknownLaboratory Kboltit4087-60-33 07:14:00Identifier 59139- 6 Result Time 2018-08-04 07:14:00Unknown Test Item Value Reference Range Comments Unknown (test code = 1742-6) 18 U/L Unknown 7-52 F Ordering Physician UnknownLaboratory Egetvom3040-77-23 07:14:00Identifier [id number]- 6 Result Time 2018-08-04 07:14:00Unknown Test Item Value Reference Range Comments Unknown (test code = 2524-7) 1.4 mmol/L Unknown 0.5-2.0 F Ordering Physician Unknown
--- OUTSIDE RECORDS SUMMARY | 2019-01-19 11:08 | XMS REPORT ---
:1930 Author Organization [facility] Care Team Providers Name Role Phone Unavailable [...] Result Comments Laboratory Studies 2018-08-09 06:32:00 Identifier [id number] Result Time Unknown 2018-08-09 06:32:00 Test Item Value Reference Range Comments Unknown (test code = 96368-7) 3.61 Unknown 0.82-1.09 F Ordering Physician UnknownLaboratory Lfqlifp8376-92-49 07:58:00Identifier 38261- 6 Result Time 2018-08-08 07:58:00Unknown Test Item Value Reference Range Comments Unknown (test code = 65391-4) 10.2 10^3/uL Unknown 3.5-10.8 F Ordering Physician UnknownLaboratory Qtzcala6170-00-36 07:58:00Identifier 45296- 6 Result Time 2018-08-08 07:58:00Unknown Test Item Value Reference Range Comments Unknown (test code = 788-0) 14 % Unknown 10.5-15 F Ordering Physician UnknownLaboratory Pjshbcq6174-00-95 07:58:00Identifier 74552- 6 Result Time 2018-08-08 07:58:00Unknown Test Item Value Reference Range Comments Unknown (test code = 789-8) 3.91 10^6 /uL Unknown 4.18-5.48 F Ordering Physician UnknownLaboratory Slfdgwg9604-88-24 07:58:00Identifier 50179- 6 Result Time 2018-08-08 07:58:00Unknown Test Item Value Reference Range Comments Unknown (test code = 777-3) 192 10^3/uL Unknown 150-450 F Ordering Physician UnknownLaboratory Rmvywif7352-91-29 07:58:00Identifier 23710- 6 Result Time 2018-08-08 07:58:00Unknown Test Item Value Reference Range Comments Unknown (test code = 74614-6) 0.1 Unknown Unknown F Ordering Physician UnknownLaboratory Tuvsxqh2401-82-80 07:58:00Identifier 55845- 6 Result Time 2018-08-08 07:58:00Unknown Test Item Value Reference Range Comments Unknown (test code = 771-6) 0.0 10^3/ul Unknown Unknown F Ordering Physician UnknownLaboratory Gflykqa3511-59-84 07:58:00Identifier 48531- 6 Result Time 2018-08-08 07:58:00Unknown Test Item Value Reference Range Comments Unknown (test code = 770-8) 74.5 % Unknown Unknown F Ordering Physician UnknownLaboratory Xmgnnxr7667-81-93 07:58:00Identifier 40994- 6 Result Time 2018-08-08 07:58:00Unknown Test Item Value Reference Range Comments Unknown (test code = 5905-5) 14.9 % Unknown Unknown F Ordering Physician UnknownLaboratory Cgutrcs2567-54-66 07:58:00Identifier 90347- 6 Result Time 2018-08-08 07:58:00Unknown Test Item Value Reference Range Comments Unknown (test code = 31082-8) 8.3 fL Unknown 7.4-10.4 F Ordering Physician UnknownLaboratory Hqamiee6679-38-73 07:58:00Identifier 47792- 6 Result Time 2018-08-08 07:58:00Unknown Test Item Value Reference Range Comments Unknown (test code = 787-2) 92 fL Unknown 80-94 F Ordering Physician UnknownLaboratory Obhqhbv2089-77-07 07:58:00Identifier 54449- 6 Result Time 2018-08-08 07:58:00Unknown Test Item Value Reference Range Comments Unknown (test code = 786-4) 34 g/dL Unknown 31-36 F Ordering Physician UnknownLaboratory Qbdudbk3405-08-23 07:58:00Identifier 10846- 6 Result Time 2018-08-08 07:58:00Unknown Test Item Value Reference Range Comments Unknown (test code = 785-6) 31 pg Unknown 27-31 F Ordering Physician UnknownLaboratory Biqwlet8474-07-16 07:58:00Identifier 83961- 6 Result Time 2018-08-08 07:58:00Unknown Test Item Value Reference Range Comments Unknown (test code = 736-9) 9.4 % Unknown Unknown F Ordering Physician UnknownLaboratory Qcnpopk4629-04-23 07:58:00Identifier 05582- 6 Result Time 2018-08-08 07:58:00Unknown Test Item Value Reference Range Comments Unknown (test code = 718-7) 12.1 g/dL Unknown 14.0-18.0 F Ordering Physician UnknownLaboratory Raqxrvt1315-28-53 07:58:00Identifier 60351- 6 Result Time 2018-08-08 07:58:00Unknown Test Item Value Reference Range Comments Unknown (test code = 4544-3) 36 % Unknown 42-52 F Ordering Physician UnknownLaboratory Pgtbise9859-68-21 07:58:00Identifier 16178- 6 Result Time 2018-08-08 07:58:00Unknown Test Item Value Reference Range Comments Unknown (test code = 713-8) 0.9 % Unknown Unknown F Ordering Physician UnknownLaboratory Odoqyrz7044-07-76 07:58:00Identifier 75898- 6 Result Time 2018-08-08 07:58:00Unknown Test Item Value Reference Range Comments Unknown (test code = 706-2) 0.3 % Unknown Unknown F Ordering Physician UnknownLaboratory Ntbsint7559-80-05 07:58:00Identifier 99898- 6 Result Time 2018-08-08 07:58:00Unknown Test Item Value Reference Range Comments Unknown (test code = LXN6717) 7.6 10^3/ul Unknown 1.5-7.7 F Ordering Physician UnknownLaboratory Ouovgdj4481-05-33 07:58:00Identifier 57946- 6 Result Time 2018-08-08 07:58:00Unknown Test Item Value Reference Range Comments Unknown (test code = 742-7) 1.5 10^3/ul Unknown 0-0.8 F Ordering Physician UnknownLaboratory Xtljrmi1029-92-96 07:58:00Identifier 37768- 6 Result Time 2018-08-08 07:58:00Unknown Test Item Value Reference Range Comments Unknown (test code = 731-0) 1.0 10^3/ul Unknown 1.0-4.8 F Ordering Physician UnknownLaboratory Mmnrpdl2146-94-73 07:58:00Identifier 25288- 6 Result Time 2018-08-08 07:58:00Unknown Test Item Value Reference Range Comments Unknown (test code = 711-2) 0.1 10^3/ul Unknown 0-0.6 F Ordering Physician UnknownLaboratory Xviujms3270-37-70 07:58:00Identifier 04638- 6 Result Time 2018-08-08 07:58:00Unknown Test Item Value Reference Range Comments Unknown (test code = 704-7) 0.0 10^3/ul Unknown 0-0.2 F Ordering Physician UnknownLaboratory Iidjqmk5795-37-98 15:00:00Identifier 10246- 6 Result Time 2018-08-07 15:00:00Unknown Test Item Value Reference Range Comments Unknown (test code = 2951-2) 142 mmol/L Unknown 135-145 F Ordering Physician UnknownLaboratory Phzzqir9195-32-85 15:00:00Identifier 19043- 6 Result Time 2018-08-07 15:00:00Unknown Test Item Value Reference Range Comments Unknown (test code = 2823-3) 3.6 mmol/L Unknown 3.5-5.0 F Ordering Physician UnknownLaboratory Nzydozu3355-06-39 15:00:00Identifier 80849- 6 Result Time 2018-08-07 15:00:00Unknown Test Item Value Reference Range Comments Unknown (test code = 2345-7) 203 mg/dL Unknown 70-100 F Ordering Physician UnknownLaboratory Gaisijk3981-98-23 15:00:00Identifier 16033- 6 Result Time 2018-08-07 15:00:00Unknown Test Item Value Reference Range Comments Unknown (test code = 75004-0) 77.6 Unknown Unknown F Ordering Physician UnknownLaboratory Ijtaylp1776-90-45 15:00:00Identifier 65169- 6 Result Time 2018-08-07 15:00:00Unknown Test Item Value Reference Range Comments Unknown (test code = NullTestCode) 93.9 Unknown Unknown F Ordering Physician UnknownLaboratory Dzcaygn0201-73-13 15:00:00Identifier 67959- 6 Result Time 2018-08-07 15:00:00Unknown Test Item Value Reference Range Comments Unknown (test code = 2160-0) 0.92 mg/dL Unknown 0.67-1.17 F Ordering Physician UnknownLaboratory Bkxlkmh4348-68-63 15:00:00Identifier 25072- 6 Result Time 2018-08-07 15:00:00Unknown Test Item Value Reference Range Comments Unknown (test code = 2075-0) 110 mmol/L Unknown 101-111 F Ordering Physician UnknownLaboratory Gchgsvx7332-60-66 15:00:00Identifier 63010- 6 Result Time 2018-08-07 15:00:00Unknown Test Item Value Reference Range Comments Unknown (test code = 2028-9) 28 mmol/L Unknown 22-32 F Ordering Physician UnknownLaboratory Fcqkjlq9310-45-04 15:00:00Identifier 48584- 6 Result Time 2018-08-07 15:00:00Unknown Test Item Value Reference Range Comments Unknown (test code = 53172-8) 9.6 mg/dL Unknown 8.6-10.3 F Ordering Physician UnknownLaboratory Gzsldgg4561-83-25 15:00:00Identifier 65224- 6 Result Time 2018-08-07 15:00:00Unknown Test Item Value Reference Range Comments Unknown (test code = 3094-0) 24 mg/dL Unknown 6-24 F Ordering Physician UnknownLaboratory Mrhomoz5973-66-21 15:00:00Identifier 88207- 6 Result Time 2018-08-07 15:00:00Unknown Test Item Value Reference Range Comments Unknown (test code = 3097-3) 26.1 Unknown 8-20 F Ordering Physician UnknownLaboratory Mkxmbip5491-22-17 15:00:00Identifier 88759- 6 Result Time 2018-08-07 15:00:00Unknown Test Item Value Reference Range Comments Unknown (test code = 79407-2) 4 mmol/L Unknown 2-11 F Ordering Physician UnknownLaboratory Ydpxtzf1314-86-31 06:00:00Identifier 29136- 6 Result Time 2018-08-05 06:00:00Unknown Test Item Value Reference Range Comments Unknown (test code = 2744-1) 7.37 Unknown 7.35-7.45 F Ordering Physician UnknownLaboratory Boaexih5156-39-82 06:00:00Identifier 34205- 6 Result Time 2018-08-05 06:00:00Unknown Test Item Value Reference Range Comments Unknown (test code = 31301-1) 84 mmHg Unknown 80-100 F Ordering Physician UnknownLaboratory Duywucc7417-08-93 06:00:00Identifier 08999- 6 Result Time 2018-08-05 06:00:00Unknown Test Item Value Reference Range Comments Unknown (test code = NullTestCode) 36 mmHg Unknown 35-45 F Ordering Physician UnknownLaboratory Hjmrcne1013-88-94 06:00:00Identifier 90648- 6 Result Time 2018-08-05 06:00:00Unknown Test Item Value Reference Range Comments Unknown (test code = 2708-6) 98.4 % Unknown 94.0-98.0 F Ordering Physician UnknownLaboratory Ltwvhda3196-85-24 06:00:00Identifier 72078- 6 Result Time 2018-08-05 06:00:00Unknown Test Item Value Reference Range Comments Unknown (test code = 1960-4) 21.8 mmol/L Unknown 19-31 F Ordering Physician UnknownLaboratory Ylfhrep8793-52-33 06:00:00Identifier 70674- 6 Result Time 2018-08-05 06:00:00Unknown Test Item Value Reference Range Comments Unknown (test code = 1925-7) -3.9 mmol/L Unknown -2.0-2.0 F Ordering Physician UnknownLaboratory Otrmauc8762-48-67 06:00:00Identifier 68936- 6 Result Time 2018-08-05 06:00:00Unknown Test Item Value Reference Range Comments Unknown (test code = NullTestCode) 32 Unknown Unknown F Ordering Physician UnknownLaboratory Lrtwouc4365-43-71 04:35:00Identifier 65802- 6 Result Time 2018-08-05 04:35:00Unknown Test Item Value Reference Range Comments Unknown (test code = 10417-2) 1.7 mg/dL Unknown 1.9-2.7 F Ordering Physician UnknownLaboratory Mxjeeax9404-92-46 07:25:00Identifier 63180- 6 Result Time 2018-08-04 07:25:00Unknown Test Item Value Reference Range Comments Unknown (test code = NullTestCode) 6.0 Unknown 5-9 F Ordering Physician UnknownLaboratory Lmvsdgv0817-02-94 07:25:00Identifier 12767- 6 Result Time 2018-08-04 07:25:00Unknown Test Item Value Reference Range Comments Unknown (test code = 36695-9) 1.026 Unknown 1.010-1.030 F Ordering Physician UnknownLaboratory Pmwwdeq1205-03-15 07:14:00Identifier 27256- 6 Result Time 2018-08-04 07:14:00Unknown Test Item Value Reference Range Comments Unknown (test code = 5643-2) Unknown 0-10 F Ordering Physician UnknownLaboratory Vnomffv0560-83-11 07:14:00Identifier 34095- 6 Result Time 2018-08-04 07:14:00Unknown Test Item Value Reference Range Comments Unknown (test code = 36881-7) 0.03 ng/mL Unknown Unknown F Ordering Physician UnknownLaboratory Mdwjnpj5147-91-24 07:14:00Identifier 45421- 6 Result Time 2018-08-04 07:14:00Unknown Test Item Value Reference Range Comments Unknown (test code = 2885-2) 5.6 g/dL Unknown 6.4-8.9 F Ordering Physician UnknownLaboratory Swgvpni1690-07-62 07:14:00Identifier 35690- 6 Result Time 2018-08-04 07:14:00Unknown Test Item Value Reference Range Comments Unknown (test code = 1975-2) 1.20 mg/dL Unknown 0.2-1.0 F Ordering Physician UnknownLaboratory Qokzsbe0431-98-70 07:14:00Identifier 26667- 6 Result Time 2018-08-04 07:14:00Unknown Test Item Value Reference Range Comments Unknown (test code = NullTestCode) 2.5 g/dL Unknown 2-4 F Ordering Physician UnknownLaboratory Kzbhjkv6459-13-12 07:14:00Identifier 90142- 6 Result Time 2018-08-04 07:14:00Unknown Test Item Value Reference Range Comments Unknown (test code = 1920-8) 36 U/L Unknown 13-39 F Ordering Physician UnknownLaboratory Hrsbhcv9611-05-39 07:14:00Identifier 46070- 6 Result Time 2018-08-04 07:14:00Unknown Test Item Value Reference Range Comments Unknown (test code = 6768-6) 76 U/L Unknown 34-104 F Ordering Physician UnknownLaboratory Eoohipu8496-29-55 07:14:00Identifier 26488- 6 Result Time 2018-08-04 07:14:00Unknown Test Item Value Reference Range Comments Unknown (test code = 1759-0) 1.2 Unknown 1-3 F Ordering Physician UnknownLaboratory Sdxsdgn1402-35-72 07:14:00Identifier 23983- 6 Result Time 2018-08-04 07:14:00Unknown Test Item Value Reference Range Comments Unknown (test code = 41722-8) 3.1 g/dL Unknown 3.2-5.2 F Ordering Physician UnknownLaboratory Lfepnty4483-57-14 07:14:00Identifier 15202- 6 Result Time 2018-08-04 07:14:00Unknown Test Item Value Reference Range Comments Unknown (test code = 1742-6) 18 U/L Unknown 7-52 F Ordering Physician UnknownLaboratory Wyfraur9988-50-12 07:14:00Identifier 69557- 6 Result Time 2018-08-04 07:14:00Unknown Test Item Value Reference Range Comments Unknown (test code = 2524-7) 1.4 mmol/L Unknown 0.5-2.0 F Ordering Physician Unknown
--- OUTSIDE RECORDS SUMMARY | 2019-01-19 11:08 | XMS REPORT | Summary of Care ---
:1930 Author Organization [facility] Address [address] [address] Care Team Providers Name Role Phone Kaley Cool Primary Care Provider Reason for Referral Diagnostic Testing (Routine) Status Reason Specialty Diagnoses / Referred By Referred To Procedures Contact Contact Pending Review Diagnoses S/P AVR (aortic valve replacement) Noel, Ivet ECHOCARDIOGRAM TTE MD Darin [facility] [place] [address] Reason for Visit Reason Comments Follow Up Pt. in for a follow up on S/P AVR (Replacement).. Echo done on . Pt. denies Cardiac Symptoms. Encounter Details Date Type Department Care Team Description 11/28/2018 Office Visit Bertin Cohen, S/P AVR (aortic valve Cardiology MD Darin replacement) (Primary [address] [facility] Dx) [place], [place] [id number] [place] [address] [phone] Allergies No Known Allergiesdocumented as of this encounter (statuses as of 11/28/2018) Medications Medication Sig Dispensed Refills Start Date End Date Status daily vitamin Oral Take 1 Tab by mouth 0 Active Tab DAILY. Aspirin 81 MG Oral Take 1 Tab by mouth 30 Tab 0 11/12/2014 Active TabIndications: S/P DAILY. AVR (aortic valve replacement) Spacer/Aero-Holding 1 Device by Does 1 Each 1 04/01/2015 Active Chambers Does not not apply route apply Device DIRECTED. albuterol HFA Take 2 Puffs by 1 Inhaler 5 04/25/2016 Active (VENTOLIN) 108 (90 inhalation EVERY BASE) MCG/ACT SIX HOURS NEEDED Inhalation Aero Soln (Shortness of breath, cough). fluticasone (FLONASE) [place] 2 Sprays in 1 Bottle 3 12/14/2017 Active 50 MCG/ACT Nasal nose DAILY. SuspensionIndications : Nasal congestion Tamsulosin HCl TAKE 1 CAPSULE BY 90 Cap 3 01/29/2018 Active (FLOMAX) 0.4 MG Oral MOUTH DAILY Cap atorvastatin TAKE 1 TABLET BY 90 Tab 3 04/02/2018 Active (LIPITOR) 10 MG Oral MOUTH DAILY TabIndications: Essential hypertension warfarin (COUMADIN) Take 1 Tab by mouth 90 Tab 3 10/29/2018 Active 2.5 MG Oral DAILY. As directed TabIndications: S/P which is 5mg Mon AVR and Elena. 2.5mg remaining days of week For use with 5mg tabs warfarin (COUMADIN) 5 Take 1 Tab by mouth 90 Tab 3 10/29/2018 Active MG Oral DAILY. As directed TabIndications: S/P which is 5mg Mon AVR and Elena. 2.5mg remaining days of week. For use with 2.5mg tabs documented as of this encounter (statuses as of 11/28/2018) Active Problems Problem Noted Date Right elbow pain 04/12/2016 Closed fracture of head of right radius 04/12/2016 BMI 30.0-30.9,adult 10/05/2011 Overview: This patient's BMI has been calculated and is above average, and BMI management plan is completed. 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 current use of anticoagulant therapy 03/20/2007 Overview: 09/16/13: Managed by: [facility] Referring Provider: Jf Indication: [facility] Antonio [...] as of this encounter (statuses as of 11/28/2018) Resolved Problems Problem Noted Date Resolved Date Encounter for therapeutic drug monitoring 09/22/2009 05/03/2010 documented as of this encounter (statuses as of 11/28/2018) Immunizations Name Administration Dates Next Due Influenza [...] Sign Reading Time Taken Comments Blood Pressure 120/62 11/28/2018 9:51 AM EDT Pulse 85 11/28/2018 9:51 AM EDT Temperature - - Respiratory Rate - - Oxygen Saturation - - Inhaled Oxygen Concentration - - Weight 69.6 kg (153 lb 8 oz) 11/28/2018 9:51 AM EDT Height 162.6 cm (5' 4") 11/28/2018 9:51 AM EDT Body Mass Index 26.35 11/28/2018 9:51 AM EDT documented in this encounter Patient Instructions Patient InstructionsMcDarin Stephenson MD - 11/28/2018 10:00 AM EDT No medication changes today. Continue to monitor your Coumadin level as you have been. Schedule an echocardiogram in about 1 year and follow up with me shortly after that (or sooner if needed). documented in this encounter Progress Notes Darin Cohen MD - 11/28/2018 10:00 AM EDT [facility] Note Patient: Derrell Cristobal Date of : 1930 Date of Service: 11/28/2018 REFERRING PRACTITIONER: Darin Cohen PRIMARY CARE PROVIDER: Kaley Cool Chief Complaint: Chief Complaint Patient presents with Follow Up Pt. in for a follow up on S/P AVR (Replacement).. Echo done on 11/21/18. Pt. denies Cardiac Symptoms. History of Present Illness: We had the pleasure of seeing Derrell Cristobal today at the [facility] Office. 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 AVR [place] [address] Kap[place]. Also had a history of subdural hematoma after head injury while on Coumadin. 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 Since his last visit with me, he reports feeling quite well. He doesn't do any regular exercise but he's able to climb a flight of stairs or walk a block without any problems. No CP/pressure or limiting dyspnea. Denies any palpitations, lightheadedness, or syncope. No orthopnea, paroxysmal dyspnea, or lower extremity edema. No bleeding issues on Coumadin but does have some bruising. No falls. 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 Past Surgical History: Procedure Laterality Date [place] CABG, VEIN, SINGLE s/p #23 [facility] AVR No Known Allergies Current Outpatient Medications Medication albuterol HFA (VENTOLIN) 108 (90 BASE) MCG/ACT Inhalation Aero Soln Aspirin 81 MG Oral Tab atorvastatin (LIPITOR) 10 MG Oral Tab daily vitamin Oral Tab fluticasone (FLONASE) 50 MCG/ACT Nasal Suspension Spacer/Aero-Holding Chambers Does not apply Device Tamsulosin HCl (FLOMAX) 0.4 MG Oral Cap warfarin (COUMADIN) 2.5 MG Oral Tab warfarin (COUMADIN) 5 MG Oral Tab Family History Problem Relation Age of Onset Heart Disease Father Social History Socioeconomic History Marital status: Single Spouse name: Not on file Number of children: Not on file Years of education: Not on file Highest education level: Not on file Occupational History Not on file Social Needs Financial resource strain: Not on file Food insecurity: Worry: Not on file Inability: Not on file Transportation needs: Medical: Not on file Non-medical: Not on file Tobacco Use Smoking status: Never Smoker Smokeless tobacco: Never Used Substance and Sexual Activity Alcohol use: Yes Drug use: No Sexual activity: Yes Partners: Female Lifestyle Physical activity: Days per week: Not on file Minutes per session: Not on file Stress: Not on file Relationships Social connections: Talks on phone: Not on file Gets together: Not on file Attends yarsani service: Not on file Active member of club or organization: Not on file Attends meetings of clubs or organizations: Not on file Relationship status: Not on file Intimate partner violence: Fear of current or ex partner: Not on file Emotionally abused: Not on file Physically abused: Not on file Forced sexual activity: Not on file Other Topics Concern Not on file Social History Narrative 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 Physical Exam: Vitals: 11/28/18 0951 BP: 120/62 BP Location: Left arm Patient Position: Sitting Pulse: 85 Weight: 153 lb 8 oz (69.6 kg) Height: 5' 4" (1.626 m) Body mass index is 26.35 kg/m. General: Overweight, alert 87-y.o. male in NAD HEENT: anicteric, MMM, no E/E OP, conj pink Neck: JVP approx 5-6 cm above RA, no carotid bruits or LAD CV: RRR, normal S1, mechanical S2. 2/6 early-peaking systolic murmur at RUSB unchanged from prior Pulm: Scant bibasilar inspiratory rales similar to before. No increased work of breathing. Abd: soft, NT, ND, +BS. No appreciable pulsatile masses or bruits but + radiation of valve sounds to abdomen. Ext: 1+ pitting bilateral lower extremity edema, no cyanosis, no cords. 1+ pedal pulses; feet warm.Compression stockings on. Neuro: no gross focal deficits Skin: Some chronic venous stasis skin changes on bilateral LEs Labs: Lab Results Component Value Date NA 135 10/19/2018 K 4.0 10/19/2018 CL 103 10/19/2018 CO2 22 10/19/2018 GLUCOSE 122 (H) 10/19/2018 BUN 18 10/19/2018 CREATININE 1.0 10/19/2018 CALCIUM 9.7 10/19/2018 TP 6.7 02/03/2016 ALBUMIN 3.4 (L) 02/03/2016 AST 31 02/03/2016 ALT 32 02/03/2016 ALK 70 02/03/2016 TBILI 0.6 02/03/2016 No results found for: BNP Lab Results Component Value Date CHOL 147 05/03/2017 TRIG 138 05/03/2017 HDL 41 05/03/2017 LDL 78 05/03/2017 LDLHDLRATIO 1.9 05/03/2017 CHOLHDLRATIO 3.6 05/03/2017 Cardiac Studies: EKG Today (I personally reviewed): NSR in 80s with 1st deg AVB. Inferior Q waves. TTE 11/21/18: FINAL IMPRESSION: Mild concentric LVH with moderate left atrial enlargement. Normal LV systolic function with no regional wall motion abnormalities; estimated LVEF 60-65%. Mild right heart enlargement with normal RV contractility. Mechanical aortic prosthesis with normal function, as described. Mild tricuspid regurgitation. Estimated upper normal pulmonary arterial systolic pressure. No pericardial effusion. Mildly dilated aortic root and ascending aorta. Compared to prior study 11/21/2016, no significant changes are apparent. Left and Right Heart Cath 08/05/1994: IMPRESSION: 1. No evidence of significant atherosclerotic coronary artery disease. 2. Severe aortic insufficiency. 3. Dilated left ventricular volumes with well-preserved systolic function. 4. Normal right heart pressure with cardiac output of 4 liters per minute. 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 AVR [place] [address] Kapoor. Also had a history of subdural hematoma after head injury while on Coumadin. ICD-9-CM ICD-10-CM 1. S/P AVR (aortic valve replacement) V43.3 Z95.2 AMBULATORY 12 LEAD EKG (GLOBAL ) 1. S/p [facility] Mechanical AVR: Patient continues to do quite well. No clinical or echo evidence for valvular dysfunction. Cont taking 81mg ASA and Coumadin. Sodium restriction and compression stockings for LE edema, which has been stable. Will plan to recheck another echo in one year for surveillance of valve. Thank you for allowing me to participate in the care of Derrell Cristobal. We will plan on f/u in ouroffice in ~1 year (shortly after his echo) as previously planned or sooner prn. If you have any questions or concerns please feel free to call our office at . 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 01/07/2019 Office Visit Internal Medicine Kaley Cool MD [address] [place] [id number] 11/19/2019 Orders Only Cardiology 11/27/2019 Office Visit Cardiology Darin Cohen MD [facility] [place] [address] Name Type Priority Associated Diagnoses Order Schedule AMBULATORY 12 LEAD EKG EKG Routine S/P AVR (aortic valve Ordered: 2018 (GLOBAL) replacement) ECHOCARDIOGRAM TTE CV Lab Routine S/P AVR (aortic valve Expected: 2019 replacement) (Approximate), Expires: 01/02/2020 Health Maintenance Due Date Last Done Comments HIV SCREENING 1945 [facility] IMMUNIZATION SERIES 12/03/1979 (1 of 2) MEDICARE ANNUAL WELLNESS 10/21/2015 10/20/2014, 08/05/2013 VISIT DEPRESSION SCREENING 12/14/2018 12/14/2017 FALL RISK ASSESSMENT 12/14/2018 12/14/2017, 12/14/2017 LIPID DISORDER SCREENING 04/02/2023 04/02/2018, 05/03/2017, 02/03/2016, [...] filedocumented in this encounter Visit Diagnoses Diagnosis S/P AVR (aortic valve replacement) - Primary Heart valve replaced by other means documented in this encounter Insurance Payer Benefit Plan / Subscriber ID Effective Dates Phone Address Type Group MEDICARE MEDICARE PART A xxxxxxxxxxx 1994-Present Medicare & B [employer] COMMERCIAL A[employer] xxxxxxxxxx 2002-Present [employer] (Home) [address] [phone] [place], [place] (Work) [id number] documented as of this encounter Advance Directives Type Date Recorded 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
--- OUTSIDE RECORDS SUMMARY | 2019-01-19 11:08 | XMS REPORT ---
:1930 Author Organization [facility] Care Team Providers Name Role Phone Unavailable [...] Result Comments Laboratory Studies 2018-08-09 06:32:00 Identifier [id number] Result Time Unknown 2018-08-09 06:32:00 Test Item Value Reference Range Comments Unknown (test code = 81386-2) 3.61 Unknown 0.82-1.09 F Ordering Physician UnknownLaboratory Qoprjax4893-79-71 07:58:00Identifier 42814- 6 Result Time 2018-08-08 07:58:00Unknown Test Item Value Reference Range Comments Unknown (test code = 69646-5) 10.2 10^3/uL Unknown 3.5-10.8 F Ordering Physician UnknownLaboratory Ydmtwyb6408-72-34 07:58:00Identifier 57132- 6 Result Time 2018-08-08 07:58:00Unknown Test Item Value Reference Range Comments Unknown (test code = 788-0) 14 % Unknown 10.5-15 F Ordering Physician UnknownLaboratory Gbdcakf5321-10-68 07:58:00Identifier 98266- 6 Result Time 2018-08-08 07:58:00Unknown Test Item Value Reference Range Comments Unknown (test code = 789-8) 3.91 10^6 /uL Unknown 4.18-5.48 F Ordering Physician UnknownLaboratory Zpeqieh0916-17-96 07:58:00Identifier 74047- 6 Result Time 2018-08-08 07:58:00Unknown Test Item Value Reference Range Comments Unknown (test code = 777-3) 192 10^3/uL Unknown 150-450 F Ordering Physician UnknownLaboratory Yxgponf9505-03-87 07:58:00Identifier 04083- 6 Result Time 2018-08-08 07:58:00Unknown Test Item Value Reference Range Comments Unknown (test code = 36414-9) 0.1 Unknown Unknown F Ordering Physician UnknownLaboratory Ufvimpz8837-65-66 07:58:00Identifier 50540- 6 Result Time 2018-08-08 07:58:00Unknown Test Item Value Reference Range Comments Unknown (test code = 771-6) 0.0 10^3/ul Unknown Unknown F Ordering Physician UnknownLaboratory Kueyurc2647-67-02 07:58:00Identifier 99732- 6 Result Time 2018-08-08 07:58:00Unknown Test Item Value Reference Range Comments Unknown (test code = 770-8) 74.5 % Unknown Unknown F Ordering Physician UnknownLaboratory Bvujtha5167-78-14 07:58:00Identifier 00115- 6 Result Time 2018-08-08 07:58:00Unknown Test Item Value Reference Range Comments Unknown (test code = 5905-5) 14.9 % Unknown Unknown F Ordering Physician UnknownLaboratory Nogopgr0245-96-64 07:58:00Identifier 81004- 6 Result Time 2018-08-08 07:58:00Unknown Test Item Value Reference Range Comments Unknown (test code = 32516-0) 8.3 fL Unknown 7.4-10.4 F Ordering Physician UnknownLaboratory Fwqrjuw8148-03-13 07:58:00Identifier 09394- 6 Result Time 2018-08-08 07:58:00Unknown Test Item Value Reference Range Comments Unknown (test code = 787-2) 92 fL Unknown 80-94 F Ordering Physician UnknownLaboratory Urpbuaj2022-92-03 07:58:00Identifier 41951- 6 Result Time 2018-08-08 07:58:00Unknown Test Item Value Reference Range Comments Unknown (test code = 786-4) 34 g/dL Unknown 31-36 F Ordering Physician UnknownLaboratory Qbnrzvj5894-14-20 07:58:00Identifier 62539- 6 Result Time 2018-08-08 07:58:00Unknown Test Item Value Reference Range Comments Unknown (test code = 785-6) 31 pg Unknown 27-31 F Ordering Physician UnknownLaboratory Jitgojy3042-29-68 07:58:00Identifier 12202- 6 Result Time 2018-08-08 07:58:00Unknown Test Item Value Reference Range Comments Unknown (test code = 736-9) 9.4 % Unknown Unknown F Ordering Physician UnknownLaboratory Pazowht4653-24-57 07:58:00Identifier 72858- 6 Result Time 2018-08-08 07:58:00Unknown Test Item Value Reference Range Comments Unknown (test code = 718-7) 12.1 g/dL Unknown 14.0-18.0 F Ordering Physician UnknownLaboratory Fngtkbs3624-00-93 07:58:00Identifier 74823- 6 Result Time 2018-08-08 07:58:00Unknown Test Item Value Reference Range Comments Unknown (test code = 4544-3) 36 % Unknown 42-52 F Ordering Physician UnknownLaboratory Qykzome3061-18-44 07:58:00Identifier 76930- 6 Result Time 2018-08-08 07:58:00Unknown Test Item Value Reference Range Comments Unknown (test code = 713-8) 0.9 % Unknown Unknown F Ordering Physician UnknownLaboratory Bytdkbd4759-99-15 07:58:00Identifier 63107- 6 Result Time 2018-08-08 07:58:00Unknown Test Item Value Reference Range Comments Unknown (test code = 706-2) 0.3 % Unknown Unknown F Ordering Physician UnknownLaboratory Woihfta7257-39-27 07:58:00Identifier 40636- 6 Result Time 2018-08-08 07:58:00Unknown Test Item Value Reference Range Comments Unknown (test code = NCD0929) 7.6 10^3/ul Unknown 1.5-7.7 F Ordering Physician UnknownLaboratory Sdwmfdn2580-87-04 07:58:00Identifier 92683- 6 Result Time 2018-08-08 07:58:00Unknown Test Item Value Reference Range Comments Unknown (test code = 742-7) 1.5 10^3/ul Unknown 0-0.8 F Ordering Physician UnknownLaboratory Egflsbu2013-53-29 07:58:00Identifier 32694- 6 Result Time 2018-08-08 07:58:00Unknown Test Item Value Reference Range Comments Unknown (test code = 731-0) 1.0 10^3/ul Unknown 1.0-4.8 F Ordering Physician UnknownLaboratory Ravmhli9100-16-27 07:58:00Identifier 36891- 6 Result Time 2018-08-08 07:58:00Unknown Test Item Value Reference Range Comments Unknown (test code = 711-2) 0.1 10^3/ul Unknown 0-0.6 F Ordering Physician UnknownLaboratory Oyofwbm1717-16-98 07:58:00Identifier 48696- 6 Result Time 2018-08-08 07:58:00Unknown Test Item Value Reference Range Comments Unknown (test code = 704-7) 0.0 10^3/ul Unknown 0-0.2 F Ordering Physician UnknownLaboratory Jexoaot2865-15-96 15:00:00Identifier 71324- 6 Result Time 2018-08-07 15:00:00Unknown Test Item Value Reference Range Comments Unknown (test code = 2951-2) 142 mmol/L Unknown 135-145 F Ordering Physician UnknownLaboratory Gfqxldt8344-97-72 15:00:00Identifier 99136- 6 Result Time 2018-08-07 15:00:00Unknown Test Item Value Reference Range Comments Unknown (test code = 2823-3) 3.6 mmol/L Unknown 3.5-5.0 F Ordering Physician UnknownLaboratory Lftmtlm0129-76-49 15:00:00Identifier 22502- 6 Result Time 2018-08-07 15:00:00Unknown Test Item Value Reference Range Comments Unknown (test code = 2345-7) 203 mg/dL Unknown 70-100 F Ordering Physician UnknownLaboratory Aqxpdwk6154-22-05 15:00:00Identifier 79775- 6 Result Time 2018-08-07 15:00:00Unknown Test Item Value Reference Range Comments Unknown (test code = 90020-5) 77.6 Unknown Unknown F Ordering Physician UnknownLaboratory Ahorgym7188-11-77 15:00:00Identifier 52251- 6 Result Time 2018-08-07 15:00:00Unknown Test Item Value Reference Range Comments Unknown (test code = NullTestCode) 93.9 Unknown Unknown F Ordering Physician UnknownLaboratory Kbvnwfx7011-99-45 15:00:00Identifier 31409- 6 Result Time 2018-08-07 15:00:00Unknown Test Item Value Reference Range Comments Unknown (test code = 2160-0) 0.92 mg/dL Unknown 0.67-1.17 F Ordering Physician UnknownLaboratory Yorunxk3328-78-52 15:00:00Identifier 91532- 6 Result Time 2018-08-07 15:00:00Unknown Test Item Value Reference Range Comments Unknown (test code = 2075-0) 110 mmol/L Unknown 101-111 F Ordering Physician UnknownLaboratory Ruqlyng2600-90-51 15:00:00Identifier 82795- 6 Result Time 2018-08-07 15:00:00Unknown Test Item Value Reference Range Comments Unknown (test code = 2028-9) 28 mmol/L Unknown 22-32 F Ordering Physician UnknownLaboratory Yudfhjb7640-66-11 15:00:00Identifier 67653- 6 Result Time 2018-08-07 15:00:00Unknown Test Item Value Reference Range Comments Unknown (test code = 55151-3) 9.6 mg/dL Unknown 8.6-10.3 F Ordering Physician UnknownLaboratory Romtpkj9083-01-18 15:00:00Identifier 36507- 6 Result Time 2018-08-07 15:00:00Unknown Test Item Value Reference Range Comments Unknown (test code = 3094-0) 24 mg/dL Unknown 6-24 F Ordering Physician UnknownLaboratory Khdaxvw7614-30-99 15:00:00Identifier 12152- 6 Result Time 2018-08-07 15:00:00Unknown Test Item Value Reference Range Comments Unknown (test code = 3097-3) 26.1 Unknown 8-20 F Ordering Physician UnknownLaboratory Qjyoepy1546-86-14 15:00:00Identifier 35843- 6 Result Time 2018-08-07 15:00:00Unknown Test Item Value Reference Range Comments Unknown (test code = 91576-7) 4 mmol/L Unknown 2-11 F Ordering Physician UnknownLaboratory Ibuiexk2767-51-00 06:00:00Identifier 60555- 6 Result Time 2018-08-05 06:00:00Unknown Test Item Value Reference Range Comments Unknown (test code = 2744-1) 7.37 Unknown 7.35-7.45 F Ordering Physician UnknownLaboratory Qeyhbqe5769-70-89 06:00:00Identifier 94163- 6 Result Time 2018-08-05 06:00:00Unknown Test Item Value Reference Range Comments Unknown (test code = 28502-2) 84 mmHg Unknown 80-100 F Ordering Physician UnknownLaboratory Outypri9704-91-01 06:00:00Identifier 58509- 6 Result Time 2018-08-05 06:00:00Unknown Test Item Value Reference Range Comments Unknown (test code = NullTestCode) 36 mmHg Unknown 35-45 F Ordering Physician UnknownLaboratory Kspihjs4925-59-21 06:00:00Identifier 51850- 6 Result Time 2018-08-05 06:00:00Unknown Test Item Value Reference Range Comments Unknown (test code = 2708-6) 98.4 % Unknown 94.0-98.0 F Ordering Physician UnknownLaboratory Ecfbvyp5849-58-24 06:00:00Identifier 68611- 6 Result Time 2018-08-05 06:00:00Unknown Test Item Value Reference Range Comments Unknown (test code = 1960-4) 21.8 mmol/L Unknown 19-31 F Ordering Physician UnknownLaboratory Gfowmpf8329-78-23 06:00:00Identifier 05121- 6 Result Time 2018-08-05 06:00:00Unknown Test Item Value Reference Range Comments Unknown (test code = 1925-7) -3.9 mmol/L Unknown -2.0-2.0 F Ordering Physician UnknownLaboratory Swebmys0165-79-83 06:00:00Identifier 66802- 6 Result Time 2018-08-05 06:00:00Unknown Test Item Value Reference Range Comments Unknown (test code = NullTestCode) 32 Unknown Unknown F Ordering Physician UnknownLaboratory Cedpkgn3042-27-35 04:35:00Identifier 26692- 6 Result Time 2018-08-05 04:35:00Unknown Test Item Value Reference Range Comments Unknown (test code = 80455-9) 1.7 mg/dL Unknown 1.9-2.7 F Ordering Physician UnknownLaboratory Gymnsvy0090-82-78 07:25:00Identifier 67512- 6 Result Time 2018-08-04 07:25:00Unknown Test Item Value Reference Range Comments Unknown (test code = NullTestCode) 6.0 Unknown 5-9 F Ordering Physician UnknownLaboratory Bostgab7762-89-84 07:25:00Identifier 11113- 6 Result Time 2018-08-04 07:25:00Unknown Test Item Value Reference Range Comments Unknown (test code = 32207-9) 1.026 Unknown 1.010-1.030 F Ordering Physician UnknownLaboratory Dneecsx6119-32-32 07:14:00Identifier 90043- 6 Result Time 2018-08-04 07:14:00Unknown Test Item Value Reference Range Comments Unknown (test code = 5643-2) Unknown 0-10 F Ordering Physician UnknownLaboratory Huecsbo9174-59-79 07:14:00Identifier 81360- 6 Result Time 2018-08-04 07:14:00Unknown Test Item Value Reference Range Comments Unknown (test code = 34643-8) 0.03 ng/mL Unknown Unknown F Ordering Physician UnknownLaboratory Eojkubb0111-18-58 07:14:00Identifier 03794- 6 Result Time 2018-08-04 07:14:00Unknown Test Item Value Reference Range Comments Unknown (test code = 2885-2) 5.6 g/dL Unknown 6.4-8.9 F Ordering Physician UnknownLaboratory Gmulxqc1063-02-58 07:14:00Identifier 14093- 6 Result Time 2018-08-04 07:14:00Unknown Test Item Value Reference Range Comments Unknown (test code = 1975-2) 1.20 mg/dL Unknown 0.2-1.0 F Ordering Physician UnknownLaboratory Iamcnvn1963-07-72 07:14:00Identifier 75117- 6 Result Time 2018-08-04 07:14:00Unknown Test Item Value Reference Range Comments Unknown (test code = NullTestCode) 2.5 g/dL Unknown 2-4 F Ordering Physician UnknownLaboratory Zepgcsr7886-27-82 07:14:00Identifier 75980- 6 Result Time 2018-08-04 07:14:00Unknown Test Item Value Reference Range Comments Unknown (test code = 1920-8) 36 U/L Unknown 13-39 F Ordering Physician UnknownLaboratory Eqttokc5660-93-66 07:14:00Identifier 67830- 6 Result Time 2018-08-04 07:14:00Unknown Test Item Value Reference Range Comments Unknown (test code = 6768-6) 76 U/L Unknown 34-104 F Ordering Physician UnknownLaboratory Zoffivm6098-40-22 07:14:00Identifier 72942- 6 Result Time 2018-08-04 07:14:00Unknown Test Item Value Reference Range Comments Unknown (test code = 1759-0) 1.2 Unknown 1-3 F Ordering Physician UnknownLaboratory Famampt5799-75-90 07:14:00Identifier 83232- 6 Result Time 2018-08-04 07:14:00Unknown Test Item Value Reference Range Comments Unknown (test code = 37891-8) 3.1 g/dL Unknown 3.2-5.2 F Ordering Physician UnknownLaboratory Vvesamp8551-20-51 07:14:00Identifier 23676- 6 Result Time 2018-08-04 07:14:00Unknown Test Item Value Reference Range Comments Unknown (test code = 1742-6) 18 U/L Unknown 7-52 F Ordering Physician UnknownLaboratory Ckqxrnm5709-55-82 07:14:00Identifier 28987- 6 Result Time 2018-08-04 07:14:00Unknown Test Item Value Reference Range Comments Unknown (test code = 2524-7) 1.4 mmol/L Unknown 0.5-2.0 F Ordering Physician Unknown
--- OUTSIDE RECORDS SUMMARY | 2019-01-19 11:08 | XMS REPORT ---
:1930 Author Organization [facility] Care Team Providers Name Role Phone Unavailable [...] Result Comments Laboratory Studies 2018-08-09 06:32:00 Identifier [id number] Result Time Unknown 2018-08-09 06:32:00 Test Item Value Reference Range Comments Unknown (test code = 59419-3) 3.61 Unknown 0.82-1.09 F Ordering Physician UnknownLaboratory Snjiuzf4852-07-84 07:58:00Identifier [id number]- 6 Result Time 2018-08-08 07:58:00Unknown Test Item Value Reference Range Comments Unknown (test code = 33924-1) 10.2 10^3/uL Unknown 3.5-10.8 F Ordering Physician UnknownLaboratory Tomqevw8750-46-08 07:58:00Identifier [id number]- 6 Result Time 2018-08-08 07:58:00Unknown Test Item Value Reference Range Comments Unknown (test code = 788-0) 14 % Unknown 10.5-15 F Ordering Physician UnknownLaboratory Dqaxkvy3144-75-65 07:58:00Identifier [id number]- 6 Result Time 2018-08-08 07:58:00Unknown Test Item Value Reference Range Comments Unknown (test code = 789-8) 3.91 10^6 /uL Unknown 4.18-5.48 F Ordering Physician UnknownLaboratory Yarnnqd2759-51-30 07:58:00Identifier [id number]- 6 Result Time 2018-08-08 07:58:00Unknown Test Item Value Reference Range Comments Unknown (test code = 777-3) 192 10^3/uL Unknown 150-450 F Ordering Physician UnknownLaboratory Fweytrc6088-92-27 07:58:00Identifier 83959- 6 Result Time 2018-08-08 07:58:00Unknown Test Item Value Reference Range Comments Unknown (test code = 35002-4) 0.1 Unknown Unknown F Ordering Physician UnknownLaboratory Yfxhibi8911-53-35 07:58:00Identifier 97790- 6 Result Time 2018-08-08 07:58:00Unknown Test Item Value Reference Range Comments Unknown (test code = 771-6) 0.0 10^3/ul Unknown Unknown F Ordering Physician UnknownLaboratory Suzebge9697-49-61 07:58:00Identifier [id number]- 6 Result Time 2018-08-08 07:58:00Unknown Test Item Value Reference Range Comments Unknown (test code = 770-8) 74.5 % Unknown Unknown F Ordering Physician UnknownLaboratory Vhorpjt6375-27-78 07:58:00Identifier [id number]- 6 Result Time 2018-08-08 07:58:00Unknown Test Item Value Reference Range Comments Unknown (test code = 5905-5) 14.9 % Unknown Unknown F Ordering Physician UnknownLaboratory Iokkwsm3907-65-85 07:58:00Identifier [id number]- 6 Result Time 2018-08-08 07:58:00Unknown Test Item Value Reference Range Comments Unknown (test code = 85427-9) 8.3 fL Unknown 7.4-10.4 F Ordering Physician UnknownLaboratory Kujievo8442-39-42 07:58:00Identifier 93907- 6 Result Time 2018-08-08 07:58:00Unknown Test Item Value Reference Range Comments Unknown (test code = 787-2) 92 fL Unknown 80-94 F Ordering Physician UnknownLaboratory Pwisdgg4124-42-16 07:58:00Identifier 66245- 6 Result Time 2018-08-08 07:58:00Unknown Test Item Value Reference Range Comments Unknown (test code = 786-4) 34 g/dL Unknown 31-36 F Ordering Physician UnknownLaboratory Ibothxb3189-23-76 07:58:00Identifier 68266- 6 Result Time 2018-08-08 07:58:00Unknown Test Item Value Reference Range Comments Unknown (test code = 785-6) 31 pg Unknown 27-31 F Ordering Physician UnknownLaboratory Ksbmymt2777-30-79 07:58:00Identifier 89737- 6 Result Time 2018-08-08 07:58:00Unknown Test Item Value Reference Range Comments Unknown (test code = 736-9) 9.4 % Unknown Unknown F Ordering Physician UnknownLaboratory Nhrwnxy7805-29-89 07:58:00Identifier 43468- 6 Result Time 2018-08-08 07:58:00Unknown Test Item Value Reference Range Comments Unknown (test code = 718-7) 12.1 g/dL Unknown 14.0-18.0 F Ordering Physician UnknownLaboratory Qmyaprz1883-95-05 07:58:00Identifier 36456- 6 Result Time 2018-08-08 07:58:00Unknown Test Item Value Reference Range Comments Unknown (test code = 4544-3) 36 % Unknown 42-52 F Ordering Physician UnknownLaboratory Zcdwfzc3397-47-47 07:58:00Identifier 64774- 6 Result Time 2018-08-08 07:58:00Unknown Test Item Value Reference Range Comments Unknown (test code = 713-8) 0.9 % Unknown Unknown F Ordering Physician UnknownLaboratory Xacxinx7218-32-63 07:58:00Identifier 45306- 6 Result Time 2018-08-08 07:58:00Unknown Test Item Value Reference Range Comments Unknown (test code = 706-2) 0.3 % Unknown Unknown F Ordering Physician UnknownLaboratory Rqakicb9914-31-97 07:58:00Identifier [id number]- 6 Result Time 2018-08-08 07:58:00Unknown Test Item Value Reference Range Comments Unknown (test code = EWU0107) 7.6 10^3/ul Unknown 1.5-7.7 F Ordering Physician UnknownLaboratory Tdakdri6081-39-12 07:58:00Identifier 61297- 6 Result Time 2018-08-08 07:58:00Unknown Test Item Value Reference Range Comments Unknown (test code = 742-7) 1.5 10^3/ul Unknown 0-0.8 F Ordering Physician UnknownLaboratory Fpznbcy9808-86-83 07:58:00Identifier 84272- 6 Result Time 2018-08-08 07:58:00Unknown Test Item Value Reference Range Comments Unknown (test code = 731-0) 1.0 10^3/ul Unknown 1.0-4.8 F Ordering Physician UnknownLaboratory Oqapoit6648-84-39 07:58:00Identifier 70135- 6 Result Time 2018-08-08 07:58:00Unknown Test Item Value Reference Range Comments Unknown (test code = 711-2) 0.1 10^3/ul Unknown 0-0.6 F Ordering Physician UnknownLaboratory Bpvccvw8430-58-53 07:58:00Identifier 24845- 6 Result Time 2018-08-08 07:58:00Unknown Test Item Value Reference Range Comments Unknown (test code = 704-7) 0.0 10^3/ul Unknown 0-0.2 F Ordering Physician UnknownLaboratory Hdrlmln2088-07-52 15:00:00Identifier 01787- 6 Result Time 2018-08-07 15:00:00Unknown Test Item Value Reference Range Comments Unknown (test code = 2951-2) 142 mmol/L Unknown 135-145 F Ordering Physician UnknownLaboratory Rusfxta7031-42-79 15:00:00Identifier 89894- 6 Result Time 2018-08-07 15:00:00Unknown Test Item Value Reference Range Comments Unknown (test code = 2823-3) 3.6 mmol/L Unknown 3.5-5.0 F Ordering Physician UnknownLaboratory Mihbhks7178-14-17 15:00:00Identifier 81630- 6 Result Time 2018-08-07 15:00:00Unknown Test Item Value Reference Range Comments Unknown (test code = 2345-7) 203 mg/dL Unknown 70-100 F Ordering Physician UnknownLaboratory Vgvtjey7914-86-79 15:00:00Identifier 57117- 6 Result Time 2018-08-07 15:00:00Unknown Test Item Value Reference Range Comments Unknown (test code = 81901-7) 77.6 Unknown Unknown F Ordering Physician UnknownLaboratory Deskfkz0394-24-38 15:00:00Identifier 03542- 6 Result Time 2018-08-07 15:00:00Unknown Test Item Value Reference Range Comments Unknown (test code = NullTestCode) 93.9 Unknown Unknown F Ordering Physician UnknownLaboratory Cutqfdc6756-82-45 15:00:00Identifier 08473- 6 Result Time 2018-08-07 15:00:00Unknown Test Item Value Reference Range Comments Unknown (test code = 2160-0) 0.92 mg/dL Unknown 0.67-1.17 F Ordering Physician UnknownLaboratory Iegxyxn1236-69-26 15:00:00Identifier 38602- 6 Result Time 2018-08-07 15:00:00Unknown Test Item Value Reference Range Comments Unknown (test code = 2075-0) 110 mmol/L Unknown 101-111 F Ordering Physician UnknownLaboratory Emxrrmf3091-96-82 15:00:00Identifier 47914- 6 Result Time 2018-08-07 15:00:00Unknown Test Item Value Reference Range Comments Unknown (test code = 2028-9) 28 mmol/L Unknown 22-32 F Ordering Physician UnknownLaboratory Fpicywu4331-12-40 15:00:00Identifier 22339- 6 Result Time 2018-08-07 15:00:00Unknown Test Item Value Reference Range Comments Unknown (test code = 95975-5) 9.6 mg/dL Unknown 8.6-10.3 F Ordering Physician UnknownLaboratory Eldrwas8366-49-11 15:00:00Identifier 76309- 6 Result Time 2018-08-07 15:00:00Unknown Test Item Value Reference Range Comments Unknown (test code = 3094-0) 24 mg/dL Unknown 6-24 F Ordering Physician UnknownLaboratory Kvpjmai5301-28-64 15:00:00Identifier 50926- 6 Result Time 2018-08-07 15:00:00Unknown Test Item Value Reference Range Comments Unknown (test code = 3097-3) 26.1 Unknown 8-20 F Ordering Physician UnknownLaboratory Edggwhh5918-84-66 15:00:00Identifier 37432- 6 Result Time 2018-08-07 15:00:00Unknown Test Item Value Reference Range Comments Unknown (test code = 35237-9) 4 mmol/L Unknown 2-11 F Ordering Physician UnknownLaboratory Wybecnr6311-74-01 06:00:00Identifier 63657- 6 Result Time 2018-08-05 06:00:00Unknown Test Item Value Reference Range Comments Unknown (test code = 2744-1) 7.37 Unknown 7.35-7.45 F Ordering Physician UnknownLaboratory Jzmuztj6009-48-95 06:00:00Identifier 57704- 6 Result Time 2018-08-05 06:00:00Unknown Test Item Value Reference Range Comments Unknown (test code = 60924-1) 84 mmHg Unknown 80-100 F Ordering Physician UnknownLaboratory Rylrric5327-64-26 06:00:00Identifier 07909- 6 Result Time 2018-08-05 06:00:00Unknown Test Item Value Reference Range Comments Unknown (test code = NullTestCode) 36 mmHg Unknown 35-45 F Ordering Physician UnknownLaboratory Beqmsue8741-02-16 06:00:00Identifier 38537- 6 Result Time 2018-08-05 06:00:00Unknown Test Item Value Reference Range Comments Unknown (test code = 2708-6) 98.4 % Unknown 94.0-98.0 F Ordering Physician UnknownLaboratory Yfqkjon9596-01-02 06:00:00Identifier 16663- 6 Result Time 2018-08-05 06:00:00Unknown Test Item Value Reference Range Comments Unknown (test code = 1960-4) 21.8 mmol/L Unknown 19-31 F Ordering Physician UnknownLaboratory Jabmkhz7156-06-11 06:00:00Identifier 41543- 6 Result Time 2018-08-05 06:00:00Unknown Test Item Value Reference Range Comments Unknown (test code = 1925-7) -3.9 mmol/L Unknown -2.0-2.0 F Ordering Physician UnknownLaboratory Absijmt9428-81-10 06:00:00Identifier 70822- 6 Result Time 2018-08-05 06:00:00Unknown Test Item Value Reference Range Comments Unknown (test code = NullTestCode) 32 Unknown Unknown F Ordering Physician UnknownLaboratory Zavypaq7033-62-99 04:35:00Identifier 72462- 6 Result Time 2018-08-05 04:35:00Unknown Test Item Value Reference Range Comments Unknown (test code = 01761-6) 1.7 mg/dL Unknown 1.9-2.7 F Ordering Physician UnknownLaboratory Azswmgk8066-10-41 07:25:00Identifier 18951- 6 Result Time 2018-08-04 07:25:00Unknown Test Item Value Reference Range Comments Unknown (test code = NullTestCode) 6.0 Unknown 5-9 F Ordering Physician UnknownLaboratory Wigzovi9907-95-13 07:25:00Identifier 74988- 6 Result Time 2018-08-04 07:25:00Unknown Test Item Value Reference Range Comments Unknown (test code = 92542-5) 1.026 Unknown 1.010-1.030 F Ordering Physician UnknownLaboratory Dkfeepx5517-59-26 07:14:00Identifier 32131- 6 Result Time 2018-08-04 07:14:00Unknown Test Item Value Reference Range Comments Unknown (test code = 5643-2) Unknown 0-10 F Ordering Physician UnknownLaboratory Hitxdzc3173-77-88 07:14:00Identifier 43239- 6 Result Time 2018-08-04 07:14:00Unknown Test Item Value Reference Range Comments Unknown (test code = 16044-0) 0.03 ng/mL Unknown Unknown F Ordering Physician UnknownLaboratory Prwhhnl4865-82-99 07:14:00Identifier 91412- 6 Result Time 2018-08-04 07:14:00Unknown Test Item Value Reference Range Comments Unknown (test code = 2885-2) 5.6 g/dL Unknown 6.4-8.9 F Ordering Physician UnknownLaboratory Yoixixb1485-58-38 07:14:00Identifier 40215- 6 Result Time 2018-08-04 07:14:00Unknown Test Item Value Reference Range Comments Unknown (test code = 1975-2) 1.20 mg/dL Unknown 0.2-1.0 F Ordering Physician UnknownLaboratory Lapghtu4227-83-49 07:14:00Identifier 80735- 6 Result Time 2018-08-04 07:14:00Unknown Test Item Value Reference Range Comments Unknown (test code = NullTestCode) 2.5 g/dL Unknown 2-4 F Ordering Physician UnknownLaboratory Qtbyfgp3563-85-09 07:14:00Identifier 02619- 6 Result Time 2018-08-04 07:14:00Unknown Test Item Value Reference Range Comments Unknown (test code = 1920-8) 36 U/L Unknown 13-39 F Ordering Physician UnknownLaboratory Buujmme6692-01-04 07:14:00Identifier 50034- 6 Result Time 2018-08-04 07:14:00Unknown Test Item Value Reference Range Comments Unknown (test code = 6768-6) 76 U/L Unknown 34-104 F Ordering Physician UnknownLaboratory Ttiksou1201-75-78 07:14:00Identifier 95345- 6 Result Time 2018-08-04 07:14:00Unknown Test Item Value Reference Range Comments Unknown (test code = 1759-0) 1.2 Unknown 1-3 F Ordering Physician UnknownLaboratory Xmuxefo1060-25-78 07:14:00Identifier 54694- 6 Result Time 2018-08-04 07:14:00Unknown Test Item Value Reference Range Comments Unknown (test code = 85949-5) 3.1 g/dL Unknown 3.2-5.2 F Ordering Physician UnknownLaboratory Fnorddy0772-86-67 07:14:00Identifier 26591- 6 Result Time 2018-08-04 07:14:00Unknown Test Item Value Reference Range Comments Unknown (test code = 1742-6) 18 U/L Unknown 7-52 F Ordering Physician UnknownLaboratory Sgsstcj3565-23-58 07:14:00Identifier 92867- 6 Result Time 2018-08-04 07:14:00Unknown Test Item Value Reference Range Comments Unknown (test code = 2524-7) 1.4 mmol/L Unknown 0.5-2.0 F Ordering Physician Unknown
[2019-01-19 11:44] VITALS: BP 142/70
--- NOTE | 2019-01-19 12:39 | UC ---
Laceration HPI - HPI Summary HPI Summary: CHIEF COMPLAINT and HPI: This is an 88-year-old man in his normal state of health, presents with his caregiver because he cut the top of his left hand on a knife. This occurred more than 12 hours ago was discovered by his caregiver. The patient denies pain. VITAL SIGNS & SaO2 REVIEWED. Within normal limits unless noted here. 142/70 NURSES NOTE REVIEWED. "pt opened a knife in the wrong direction yesterday afternoon and cut himself on the top of his lt hand. tetanus is unknown but he states in the past 10 years, maybe." - History Of Current Complaint Chief Complaint: UCLaceration Stated Complaint: HAND LACERATION Time Seen by Provider: 01/19/19 11:54 Pain Intensity: 0 - Allergies/Home Medications Allergies/Adverse Reactions: Allergies Allergy/AdvReac Type Severity Reaction Status Date / Time No Known Allergies Allergy Verified 04/06/18 08:37 Home Medications: Home Medications Cephalexin CAP* [Keflex CAP*] 500 mg PO TID 01/19/19 [History Confirmed 01/19/19 ] Warfarin Sodium 5 mg PO DAILY 01/19/19 [History Confirmed 01/19/19] PMH/Surg Hx/FS Hx/Imm Hx - Additional Past Medical History Additional PMH: PAST MEDICAL HISTORY- aortic valve replacement; on warfarin. CHRONIC and RECURRENT HEALTH PROBLEM LIST REVIEWED. Information relevant to present complaint: noncontributory. VISIT HISTORY REVIEWED. MEDICATIONS & ALLERGIES REVIEWED. HYPERTENSION STATUS:history of hypertension. FAMILY HISTORY: noncontributory to current complaint. Positive for: hypertension, cardiovascular disease, stroke, diabetes, cancer. Patient denies family history of: hypertension, cardiovascular disease, stroke, diabetes, cancer. SOCIAL HISTORY: Smoker:patient is a nonsmoker. Home:on condition includes caregiver. Employment:patient is retired. 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 - Surgical History Surgical History: Yes Surgery Procedure, Year, and Place: HEART VALVE REPLACEMENT 1994 - Family History Known Family History: Positive: Hypertension, Other - Cancer - Social History Alcohol Use: unknown at this time Substance Use Type: None Smoking Status (MU): Never Smoked Tobacco Household Exposure Type: Cigarettes - Immunization History Most Recent Influenza Vaccination: fall 2017 Most Recent Tetanus Shot: 12/01/15 Most Recent Pneumonia Vaccination: received in past Review of Systems All Other Systems Reviewed And Are Negative: Yes Constitutional: Positive: Negative Respiratory: Positive: Negative Cardiovascular: Positive: Negative Gastrointestinal: Positive: Negative Musculoskeletal: Positive: Other: - laceration over the dorsum of the left hand. Is Patient Immunocompromised?: No Physical Exam - Summary Physical Exam Summary: Appearance: The patient is well-appearing, is in no pain or distress, and is well-nourished. Eyes: Conjunctiva are clear. Pupils are equal and reactive to light and accommodation. Extra ocular muscle movement is intact. ENT: The hearing is grossly normal, the pharynx is normal, and the TMs are normal. There is no muffled or hoarse voice. No stridor. Neck: The neck is supple and there is no lymphadenopathy. Respiratory: The chest is non-tender to palpation and without crepitus. The lungs are clear, there are normal breath sounds, and there is no respiratory distress. No wheezes, rales or rhonchi. Cardiovascular: Heart sounds reveal a regular rate and rhythm. There are no clicks, rubs or murmurs. There are no carotid bruits or thrills. Circulation is grossly intact. Abdomen: The abdomen is soft and nontender. There is no organomegaly. Bowel sounds are present and within normal limits. No point tenderness at McBurneys point. No CVA tenderness. Musculoskeletal: Strength is intact. The patient moves all extremities. examination of the left hand shows a 3.0 cm disruption of the skin in a crescent shaped manner over the dorsum. This is approximately based. There is some loss of circulation to flap. There is also a 0.5 cm flap laceration on the dorsum of the left hand lateral to this large laceration. It is located approximately 2 cm proximal to the fifth MCP. Neurological: The patient is alert. Motor and sensory are examination grossly intact. Speech is normal. Psychological: The patient displays age appropriate behavior, and is conversant. GCS=15. Skin: Negative for rashes. PROCEDURE: The area of the left hand was cleaned and prepped. The bleeding was controlled. Skin adhesive was applied to bring the wound edges together for both lacerations. There was good approximation and hemostasis. The area was dressed and the patient and his caregiver were instructed about keeping the wound protected from mechanical disruption. There are also instructed about what to look for if the wound were to become infected. Triage Information Reviewed: Yes Vital Signs: Initial Vital Signs Temp 97.8 F 01/19/19 11:37 Pulse 70 01/19/19 11:37 Resp 18 01/19/19 11:37 BP 142/70 01/19/19 11:37 Pulse Ox 97 01/19/19 11:37 Laceration Course/Dx - Course/Dx Course Of Treatment: This is an 88-year-old man in his normal state of health, presents with his caregiver because he cut the top of his left hand on a knife. This occurred more than 12 hours ago was discovered by his caregiver. The patient denies pain. . Physical examination showed a slightly oozing wound on the dorsum of the left hand that is crescent shaped and approximately 3 cm.there is also a 0.5 cm second wound lateral to the first wound. Both of these wounds were closed with skin adhesive and the patient and caregiver were instructed about care and signs of infection. - Differential Dx - Laceration/Wound Differental Diagnoses: Abscess, Laceration - Diagnosis Provider Diagnosis: Laceration Discharge ED - Sign-Out/Discharge Documenting (check all that apply): Patient Departure All imaging exams completed and their final reports reviewed: No Studies - Discharge Plan Condition: Stable Disposition: HOME Patient Education Materials: Skin Adhesive Care (ED) Referrals: Kaley Cool MD [Primary Care Provider] - Additional Instructions: WE DISCUSSED: PLEASE SEEK CARE AT THE EMERGENCY DEPARTMENT IF SYMPTOMS WORSEN OR IF NEW SYMPTOMS DEVELOP. FOLLOW UP WITH YOUR PRIMARY CARE PHYSICIAN IF CONDITION CONTINUES BEYOND 3 DAYS WITHOUT IMPROVEMENT. YOUR DIAGNOSIS IS: laceration over the top of your left hand. YOUR PRESCRIPTION RECOMMENDATION IS: none. OTHER INSTRUCTIONS: Hypertension Discharge Instructions: Your blood pressure reading today was 142/70, indicating HYPERTENSION. Follow- up with your primary care provider within 4 weeks for blood pressure check SEE SKIN ADHESIVE INSTRUCTIONS. ALSO: WARM MOIST HEAT TO YOUR RIGHT LOWER LEG TO INCREASE CIRCULATION. CONTINUE YOUR ANTIBIOTIC. WATCH FOR ANY BREAKS IN THE SKIN. USE ANTIBIOTIC OINTMENT TO SKIN IN FRONT OF LEG IF THERE IS ANY SKIN BREAK. Use a bandage to protect her hand FROM injury until it is healed.. - Billing Disposition and Condition Condition: STABLE Disposition: Home
== END 2019-01-19 12:58 | disposition home or self-care (01) ==
LOC: UCEAST 11:01
DX: S61.412A Laceration without foreign body of left hand, initial encounter (principal); W26.0XXA Contact with knife, initial encounter; Y92.9 Unspecified place or not applicable
CPT/HCPCS: 99212; G0463

== ENCOUNTER 2019-06-30 18:23 | Inpatient (IN) | payer MEDICARE, OTHER ==
[2019-06-30] MEDS ORDERED: NS 0.9% 1000 ml BAG 1,000 ML IV ONE (18:28)
[2019-06-30 19:13] LABS: ABS Lymphocytes 0.8 10^3/ul (1.0-4.8); ABS Monocytes 1.1 10^3/ul (0-0.8); Eosinophil % 0.1 %; Hematocrit 47 % (42-52); Hemoglobin 15.8 g/dL (14.0-18.0); Lymphocyte % 7.2 %; Mean Corpuscular HGB Conc 33 g/dL (31-36); Mean Corpuscular Hemoglobin 32 pg (27-31); Mean Corpuscular Volume 94 fL (80-94); Mean Platelet Volume 7.9 fL (7.4-10.4); Platelet Count 229 10^3/uL (150-450); Red Cell Distribution Width 15 % (10-15); White Blood Count 10.8 10^3/uL (3.5-10.8)
[2019-06-30 19:20] LABS: Activated Partial Thrombo Time 40.6 seconds (26.0-38.0); INR 1.48 (0.82-1.09)
[2019-06-30 19:28] LABS: ALT 27 U/L (7-52); AST 68 U/L (13-39); Albumin 3.8 g/dL (3.2-5.2); Alkaline Phosphatase 116 U/L (34-104); Anion Gap 9 mmol/L (2-11); BUN/Creatinine Ratio 18.1 (8-20); Blood Urea Nitrogen 17 mg/dL (6-24); CO2 Carbon Dioxide 26 mmol/L (22-32); Calcium 9.7 mg/dL (8.6-10.3); Chloride 105 mmol/L (101-111); Cholesterol 146 mg/dL; EGFR African American 91.4 (>60); EGFR Non-African American 75.6 (>60); Globulin 3.7 g/dL (2-4); Glucose 100 mg/dL (70-100); LDL Cholesterol 72 mg/dL; Potassium 3.8 mmol/L (3.5-5.0); Sodium 140 mmol/L (135-145); Total Protein 7.5 g/dL (6.4-8.9); Triglycerides 67 mg/dL
[2019-06-30 19:31] LABS: Troponin I 0.04 ng/mL (<0.03)
[2019-06-30] MEDS ORDERED: Iohexol 350 (CONTRAST) 500 ML MDV IV ONE (19:49)
[2019-06-30 20:35] LABS: Urine Appearance Clear; Urine Bilirubin Negative (Negative); Urine Blood Negative (Negative); Urine Color Yellow; Urine Glucose Negative (Negative); Urine Ketones Trace (Negative); Urine Nitrite Negative (Negative); Urine Protein 2+(100 mg/dL) (Negative); Urine Specific Gravity 1.021 (1.010-1.030); Urine Urobilinogen Negative (Negative)
[2019-06-30 20:37] LABS: Urine Bacteria Absent (Absent); Urine Red Blood Cell 3+(>10/hpf) (Absent); Urine White Blood Cell Trace(0-5/hpf) (Absent)
[2019-06-30] MEDS ORDERED: Warfarin 5 mg TAB (*) PO ONE (22:08)
[2019-06-30 22:25] LABS: C Reactive Protein 99.78 mg/L (<8.01)
[2019-06-30] MEDS ORDERED: LORazepam 0.5 mg TAB (*) PO ONE (22:30)
[2019-06-30 22:45] LABS: Free T4 1.12 ng/dL (0.61-1.12)
[2019-06-30] MEDS ORDERED: Vancomycin(*) 1,000 MG in NS 0.9% 250 ml 250 ML IV ONE (22:57)
[2019-06-30] MEDS ORDERED: Aspirin EC 325 mg TAB.EC PO ONE (23:00)
[2019-06-30] MEDS ORDERED: Aspirin EC 325 mg TAB.EC PO SCH (23:00)
[2019-07-01 00:38] LABS: Troponin I 0.05 ng/mL (<0.03)
[2019-07-01] MEDS: NS 0.9% 1000 ml BAG 1,000 ML IV SCH ×2 (01:11→20:28)
[2019-07-01 07:34] LABS: ABS Eosinophils 0.1 10^3/ul (0-0.6); ABS Lymphocytes 1.1 10^3/ul (1.0-4.8); Eosinophil % 0.8 %; Hematocrit 39 % (42-52); Hemoglobin 13.1 g/dL (14.0-18.0); Lymphocyte % 12.8 %; Mean Corpuscular HGB Conc 34 g/dL (31-36); Mean Corpuscular Hemoglobin 32 pg (27-31); Mean Corpuscular Volume 95 fL (80-94); Mean Platelet Volume 8.3 fL (7.4-10.4); Platelet Count 194 10^3/uL (150-450); Red Blood Count 4.07 10^6 /uL (4.18-5.48); Red Cell Distribution Width 15 % (10-15); White Blood Count 8.2 10^3/uL (3.5-10.8)
[2019-07-01 07:41] LABS: INR 2.31 (0.82-1.09)
[2019-07-01 07:49] LABS: ALT 23 U/L (7-52); AST 61 U/L (13-39); Albumin 2.9 g/dL (3.2-5.2); Albumin/Globulin Ratio 1.1 (1-3); Alkaline Phosphatase 82 U/L (34-104); Anion Gap 7 mmol/L (2-11); BUN/Creatinine Ratio 19.5 (8-20); Blood Urea Nitrogen 16 mg/dL (6-24); CO2 Carbon Dioxide 22 mmol/L (22-32); Calcium 8.2 mg/dL (8.6-10.3); Chloride 110 mmol/L (101-111); EGFR Non-African American 88.5 (>60); Globulin 2.7 g/dL (2-4); Glucose 78 mg/dL (70-100); Potassium 3.6 mmol/L (3.5-5.0); Sodium 139 mmol/L (135-145); Total Protein 5.6 g/dL (6.4-8.9)
[2019-07-01 07:54] LABS: Troponin I 0.04 ng/mL (<0.03)
[2019-07-01] MEDS: Aspirin EC 81 mg TAB.EC (enteric coated) PO SCH (10:07)
[2019-07-01] MEDS ORDERED: Warfarin 5 mg TAB (*) PO SCH (17:00)
[2019-07-02] MEDS: Aspirin EC 81 mg TAB.EC (enteric coated) PO SCH (09:14)
[2019-07-02 16:25] LABS: ABS Eosinophils 0.3 10^3/ul (0-0.6); ABS Lymphocytes 0.9 10^3/ul (1.0-4.8); ABS Monocytes 0.8 10^3/ul (0-0.8); Hematocrit 41 % (42-52); Hemoglobin 14.1 g/dL (14.0-18.0); Lymphocyte % 13.3 %; Mean Corpuscular HGB Conc 34 g/dL (31-36); Mean Corpuscular Hemoglobin 32 pg (27-31); Mean Corpuscular Volume 93 fL (80-94); Mean Platelet Volume 7.8 fL (7.4-10.4); Platelet Count 213 10^3/uL (150-450); Red Cell Distribution Width 15 % (10-15); White Blood Count 7.1 10^3/uL (3.5-10.8)
[2019-07-02 16:30] LABS: INR 4.61 (0.82-1.09)
[2019-07-02] MEDS ORDERED: Phytonadione Oral Solution 5 MG/25 ML UDC PO ONE (16:40)
[2019-07-02 16:42] LABS: BUN/Creatinine Ratio 20.2 (8-20); Calcium 9.1 mg/dL (8.6-10.3); EGFR African American 91.4 (>60); EGFR Non-African American 75.6 (>60); Potassium 3.9 mmol/L (3.5-5.0)
[2019-07-03 06:54] LABS: ABS Eosinophils 0.4 10^3/ul (0-0.6); ABS Lymphocytes 1.3 10^3/ul (1.0-4.8); ABS Monocytes 0.9 10^3/ul (0-0.8); Eosinophil % 5.3 %; Hematocrit 37 % (42-52); Hemoglobin 12.9 g/dL (14.0-18.0); Lymphocyte % 17.5 %; Mean Corpuscular HGB Conc 35 g/dL (31-36); Mean Corpuscular Hemoglobin 32 pg (27-31); Mean Corpuscular Volume 92 fL (80-94); Mean Platelet Volume 7.9 fL (7.4-10.4); Platelet Count 201 10^3/uL (150-450); Red Blood Count 4.02 10^6 /uL (4.18-5.48); Red Cell Distribution Width 15 % (10-15); White Blood Count 7.3 10^3/uL (3.5-10.8)
[2019-07-03 07:20] LABS: INR 3.09 (0.82-1.09)
[2019-07-03] MEDS ORDERED: Heparin DRIP 25,000 UNITS(*) 25,000 UNITS/500 ML BAG IV SCH ×2 (08:30→16:30)
[2019-07-03 08:46] LABS: Activated Partial Thrombo Time 48.5 seconds (26.0-38.0)
[2019-07-03] MEDS: Aspirin EC 81 mg TAB.EC (enteric coated) PO SCH (09:43)
[2019-07-03 15:57] LABS: INR 2.44 (0.82-1.09)
[2019-07-03] MEDS ORDERED: Phytonadione Oral Solution 5 MG/25 ML UDC PO ONE (16:25)
[2019-07-03] MEDS ORDERED: Heparin 5000 UNITS/ML VIAL(*) 1 ml vial IV SCH (18:00)
[2019-07-04] MEDS: NS 0.9% 1000 ml BAG 1,000 ML IV SCH ×2 (00:50→14:26)
[2019-07-04] MEDS ORDERED: ceFAZolin 2 GM PREMIX in ORs 2 GM/50 ML BAG IVPB ONE (07:00)
[2019-07-04 07:08] LABS: ABS Basophils 0.1 10^3/ul (0-0.2); ABS Eosinophils 0.4 10^3/ul (0-0.6); ABS Lymphocytes 1.2 10^3/ul (1.0-4.8); Hematocrit 39 % (42-52); Lymphocyte % 14.9 %; Mean Corpuscular HGB Conc 34 g/dL (31-36); Mean Corpuscular Hemoglobin 32 pg (27-31); Mean Corpuscular Volume 94 fL (80-94); Mean Platelet Volume 7.7 fL (7.4-10.4); Platelet Count 203 10^3/uL (150-450); Red Blood Count 4.12 10^6 /uL (4.18-5.48); Red Cell Distribution Width 15 % (10-15); White Blood Count 8.2 10^3/uL (3.5-10.8)
[2019-07-04 07:27] LABS: INR 1.65 (0.82-1.09)
[2019-07-04 07:29] LABS: BUN/Creatinine Ratio 19.2 (8-20); Calcium 8.1 mg/dL (8.6-10.3); EGFR African American 113.4 (>60); EGFR Non-African American 93.7 (>60); Potassium 3.5 mmol/L (3.5-5.0)
[2019-07-04] MEDS ORDERED: Lidocaine 1% VIAL 10 MG/ML VIAL ONE (08:25)
[2019-07-04] MEDS ORDERED: Iohexol 300 (CONTRAST) 10 ML SDV ONE ×2 (08:42→09:36)
[2019-07-04] MEDS ORDERED: fentaNYL 100 mcg/2 ml 50 MCG/ML VIAL ONE (08:42)
[2019-07-04] MEDS ORDERED: Midazolam 5 mg/5 ml VIAL 1 mg/ml 5 ml VIAL (5 mg) ONE (08:42)
[2019-07-04] MEDS ORDERED: HYDROmorphone 1 MG/1 ML SYRINGE ONE (10:09)
[2019-07-04] MEDS ORDERED: Heparin DRIP 25,000 UNITS(*) 25,000 UNITS/500 ML BAG IV SCH (11:30)
[2019-07-04] MEDS: Heparin DRIP 25,000 UNITS(*) 25,000 UNITS/500 ML BAG IV SCH ×2 (14:34→15:33)
[2019-07-04 15:39] LABS: ABS Basophils 0.1 10^3/ul (0-0.2); ABS Eosinophils 0.3 10^3/ul (0-0.6); ABS Lymphocytes 1.1 10^3/ul (1.0-4.8); ABS Monocytes 1.2 10^3/ul (0-0.8); Eosinophil % 3.3 %; Hematocrit 38 % (42-52); Hemoglobin 13.1 g/dL (14.0-18.0); Lymphocyte % 12.2 %; Mean Corpuscular HGB Conc 35 g/dL (31-36); Mean Corpuscular Hemoglobin 32 pg (27-31); Mean Corpuscular Volume 93 fL (80-94); Mean Platelet Volume 7.8 fL (7.4-10.4); Nucleated Red Blood Cells % 0.1; Platelet Count 208 10^3/uL (150-450); Red Blood Count 4.08 10^6 /uL (4.18-5.48); Red Cell Distribution Width 15 % (10-15); White Blood Count 9.1 10^3/uL (3.5-10.8)
[2019-07-04 16:16] LABS: EGFR African American 101.3 (>60); EGFR Non-African American 83.7 (>60)
[2019-07-04] MEDS: ceFAZolin VIAL(*) 1 GM in NS 0.9% 50 ML 50 ML IVPB SCH (16:54)
[2019-07-04] MEDS: Warfarin 5 mg TAB (*) PO SCH (16:54)
[2019-07-04] MEDS: Aspirin EC 81 mg TAB.EC (enteric coated) PO SCH (16:54)
[2019-07-05] MEDS: ceFAZolin VIAL(*) 1 GM in NS 0.9% 50 ML 50 ML IVPB SCH ×2 (01:12→09:32)
[2019-07-05] MEDS: Aspirin EC 81 mg TAB.EC (enteric coated) PO SCH (09:32)
[2019-07-05] MEDS: Heparin DRIP 25,000 UNITS(*) 25,000 UNITS/500 ML BAG IV SCH (11:33)
[2019-07-05] MEDS: NS 0.9% 1000 ml BAG 1,000 ML IV SCH (13:15)
[2019-07-05] MEDS ORDERED: Heparin DRIP 25,000 UNITS(*) 25,000 UNITS/500 ML BAG IV SCH ×2 (18:00→20:15)
[2019-07-05] MEDS: Warfarin 5 mg TAB (*) PO SCH (20:18)
[2019-07-05 23:51] LABS: Hematocrit 35 % (42-52); INR 1.36 (0.82-1.09); Mean Corpuscular HGB Conc 34 g/dL (31-36); Mean Corpuscular Hemoglobin 32 pg (27-31); Mean Corpuscular Volume 92 fL (80-94); Red Blood Count 3.82 10^6 /uL (4.18-5.48); White Blood Count 10.2 10^3/uL (3.5-10.8)
[2019-07-05 23:52] LABS: ABS Basophils 0.1 10^3/ul (0-0.2); ABS Eosinophils 0.3 10^3/ul (0-0.6); ABS Lymphocytes 1.3 10^3/ul (1.0-4.8); ABS Monocytes 1.2 10^3/ul (0-0.8); Eosinophil % 2.8 %; Lymphocyte % 12.5 %; Mean Platelet Volume 7.9 fL (7.4-10.4); Platelet Count 193 10^3/uL (150-450); Red Cell Distribution Width 15 % (10-15)
[2019-07-05 23:53] LABS: EGFR African American 118.7 (>60); EGFR Non-African American 98.1 (>60)
[2019-07-06 05:12] LABS: ABS Basophils 0.1 10^3/ul (0-0.2); ABS Eosinophils 0.2 10^3/ul (0-0.6); ABS Lymphocytes 1.2 10^3/ul (1.0-4.8); ABS Monocytes 1.5 10^3/ul (0-0.8); Eosinophil % 2.3 %; Hematocrit 30 % (42-52); Hemoglobin 10.4 g/dL (14.0-18.0); Lymphocyte % 11.4 %; Mean Corpuscular HGB Conc 35 g/dL (31-36); Mean Corpuscular Hemoglobin 32 pg (27-31); Mean Corpuscular Volume 92 fL (80-94); Mean Platelet Volume 8.1 fL (7.4-10.4); Platelet Count 159 10^3/uL (150-450); Red Blood Count 3.26 10^6 /uL (4.18-5.48); Red Cell Distribution Width 15 % (10-15); White Blood Count 10.5 10^3/uL (3.5-10.8)
[2019-07-06 05:18] LABS: INR 1.58 (0.82-1.09)
[2019-07-06 05:28] LABS: EGFR African American 120.5 (>60); EGFR Non-African American 99.6 (>60)
[2019-07-06] MEDS: Aspirin EC 81 mg TAB.EC (enteric coated) PO SCH (10:23)
[2019-07-06 15:01] LABS: C Reactive Protein 127.45 mg/L (<8.01)
[2019-07-06] MEDS: Warfarin 5 mg TAB (*) PO SCH (17:35)
[2019-07-06] MEDS: [UNRECOGNIZED DRUG - REMARK] FOLLOW UP SCH (17:47)
[2019-07-07 04:51] LABS: ABS Eosinophils 0.4 10^3/ul (0-0.6); ABS Lymphocytes 1.4 10^3/ul (1.0-4.8); ABS Monocytes 1.3 10^3/ul (0-0.8); Eosinophil % 4.5 %; Hematocrit 28 % (42-52); Hemoglobin 9.9 g/dL (14.0-18.0); Lymphocyte % 16.1 %; Mean Corpuscular HGB Conc 35 g/dL (31-36); Mean Corpuscular Hemoglobin 32 pg (27-31); Mean Corpuscular Volume 92 fL (80-94); Mean Platelet Volume 7.7 fL (7.4-10.4); Platelet Count 156 10^3/uL (150-450); Red Blood Count 3.07 10^6 /uL (4.18-5.48); Red Cell Distribution Width 15 % (10-15); White Blood Count 8.9 10^3/uL (3.5-10.8)
[2019-07-07 04:58] LABS: Activated Partial Thrombo Time 50.7 seconds (26.0-38.0); INR 2.18 (0.82-1.09)
[2019-07-07 05:00] LABS: EGFR African American 126.4 (>60); EGFR Non-African American 104.5 (>60)
[2019-07-07] MEDS: Aspirin EC 81 mg TAB.EC (enteric coated) PO SCH (08:43)
[2019-07-07] MEDS: Polyethylene Glycol 3350 17 GM PACKET PO PRN (08:43)
[2019-07-07] MEDS ORDERED: Magnesium Hydroxide LIQ 30 ML UDC PO PRN (17:19)
[2019-07-07] MEDS ORDERED: Senna TAB 8.6 mg TAB PO PRN (17:19)
[2019-07-07] MEDS ORDERED: Polyethylene Glycol 3350 17 GM PACKET PO PRN (17:19)
[2019-07-07] MEDS: Warfarin 5 mg TAB (*) PO SCH (17:57)
[2019-07-07] MEDS: Magnesium Hydroxide LIQ 30 ML UDC PO SCH (17:57)
[2019-07-07] MEDS: [UNRECOGNIZED DRUG - REMARK] FOLLOW UP SCH (18:03)
[2019-07-08 07:25] LABS: ABS Basophils 0.1 10^3/ul (0-0.2); ABS Eosinophils 0.4 10^3/ul (0-0.6); ABS Lymphocytes 1.1 10^3/ul (1.0-4.8); ABS Monocytes 1.1 10^3/ul (0-0.8); Eosinophil % 4.5 %; Hematocrit 29 % (42-52); Hemoglobin 10.2 g/dL (14.0-18.0); Lymphocyte % 13.1 %; Mean Corpuscular HGB Conc 35 g/dL (31-36); Mean Corpuscular Hemoglobin 32 pg (27-31); Mean Corpuscular Volume 92 fL (80-94); Mean Platelet Volume 7.8 fL (7.4-10.4); Platelet Count 178 10^3/uL (150-450); Red Blood Count 3.16 10^6 /uL (4.18-5.48); Red Cell Distribution Width 14 % (10-15); White Blood Count 8.6 10^3/uL (3.5-10.8)
[2019-07-08 07:34] LABS: Activated Partial Thrombo Time 36.2 seconds (26.0-38.0); INR 2.72 (0.82-1.09)
[2019-07-08 07:50] LABS: EGFR African American 137.5 (>60); EGFR Non-African American 113.6 (>60)
[2019-07-08] MEDS: Magnesium Hydroxide LIQ 30 ML UDC PO SCH ×2 (09:14→19:50)
[2019-07-08] MEDS: Aspirin EC 81 mg TAB.EC (enteric coated) PO SCH (09:15)
[2019-07-08] MEDS: Warfarin 5 mg TAB (*) PO SCH (16:40)
[2019-07-08] MEDS: [UNRECOGNIZED DRUG - REMARK] FOLLOW UP SCH (16:42)
[2019-07-08] MEDS: Polyethylene Glycol 3350 17 GM PACKET PO PRN (17:48)
[2019-07-09 08:14] LABS: ABS Basophils 0.1 10^3/ul (0-0.2); ABS Eosinophils 0.4 10^3/ul (0-0.6); ABS Lymphocytes 1.2 10^3/ul (1.0-4.8); ABS Monocytes 0.9 10^3/ul (0-0.8); Eosinophil % 4.5 %; Hematocrit 33 % (42-52); Hemoglobin 11.3 g/dL (14.0-18.0); Lymphocyte % 13.9 %; Mean Corpuscular HGB Conc 34 g/dL (31-36); Mean Corpuscular Hemoglobin 32 pg (27-31); Mean Corpuscular Volume 94 fL (80-94); Mean Platelet Volume 7.7 fL (7.4-10.4); Platelet Count 203 10^3/uL (150-450); Red Blood Count 3.55 10^6 /uL (4.18-5.48); Red Cell Distribution Width 15 % (10-15); White Blood Count 8.3 10^3/uL (3.5-10.8)
[2019-07-09 08:28] LABS: EGFR African American 124.4 (>60); EGFR Non-African American 102.8 (>60)
[2019-07-09] MEDS: Magnesium Hydroxide LIQ 30 ML UDC PO SCH (08:41)
[2019-07-09] MEDS: Aspirin EC 81 mg TAB.EC (enteric coated) PO SCH (08:44)
[2019-07-09 09:57] LABS: INR 3.53 (0.82-1.09)
[2019-07-09] MEDS ORDERED: WARFARIN 2 MG PO SCH (17:00)
[2019-07-09] MEDS: [UNRECOGNIZED DRUG - REMARK] FOLLOW UP SCH (17:24)
[2019-07-09 17:41] VITALS: BP 112/57
== END 2019-07-09 18:30 | disposition home health service (06) | DRG 244 ==
LOC: ED 18:23 → MEDTELE 22:15
PROVIDERS: ADMIT Internal Medicine; ATTEND Internal Medicine